=== PATIENT | male | born 1970 | race African-American/Black ===

== ENCOUNTER 2017-02-09 17:10 | Inpatient (IN) ==
[2017-02-09] MEDS ORDERED: LORazepam 2 MG/1 ML VIAL IV PRN ×2 (17:38→19:05)
[2017-02-09] MEDS ORDERED: SODIUM CHLORIDE 0.9% 1,000 ML IV SCH (18:00)
--- NOTE | 2017-02-09 18:50 | Hospitalist History & Physical ---
<Amy Olvera - Last Filed: 02/09/17 18:47> Assessment and Plan - Time spent with patient Time spent with patient: Greater than 30 minutes (1) Acute alcoholic pancreatitis Status: Acute Assessment and plan: Mr. Saucedo is a 46-year-old male transferred from [facility] with ongoing acute alcoholic pancreatitis with alcohol withdrawal. Patient has been given Ativan and Tranxene at [facility]. He is sleepy but arousable now. Patient' s lipase is still elevated but his abdomen is nontender. He will be given fluids, clear liquid diet, banana bag, and Geodon IM, Ativan, and/or Haldol for alcohol withdrawal. Patient's home medicines will be restarted. I do not see any medicines for patient's verbal history of congestive heart failure but he is on Dilantin for seizures. Dr. Meek to see and examined patient and further recommendations to follow. Current Visit: Yes (2) Alcohol withdrawal Status: Acute Current Visit: Yes (3) Congestive heart failure Status: Acute Current Visit: Yes (4) Seizures Status: Acute Current Visit: Yes History of Present Illness Chief complaint: Altered mental status History of present illness: Mr. Cortez is a 46 year old male with history of alcohol abuse, CHF and seizures transferred from [facility] with ongoing acute alcoholic pancreatitis and altered mental status. History is been taken from records from [facility] along with inconsistent history from the patient. He was initially agitated upon arrival and now is sleepy and lethargic. According to the records it looks like patient has had some nausea and vomiting and was unable to keep his seizure medicines down. He suffered a seizure and was taken to [facility] ER and given Dilantin and admitted with seizures and pancreatitis. Patient's lipase on 02/07/2017 was 7296 and today it is down to 1492. Looks like patient became combative and had altered mental status and CT done was negative. I believe patient was going through alcohol withdrawal because he normally drinks 3-4 bottles of vodka a day per records. His last known drink was on Wednesday. Upon exam patient is sleepy and lethargic but can answer some questions though some are inconsistent with his answers. His chest is clear, CV regular rate and rhythm, and abdomen is soft and nontender. He has no complaints of abdominal pain, lower extremity swelling, constipation, diarrhea, chest pain, shortness of breath, dysphagia, or headache. Labs from [place] show BMP with normal electrolytes, creatinine is 1, blood sugars 125. Patient's ALP is elevated at 132 AST elevated at 257 ALT elevated at 83 with a normal bilirubin. Patient's amylase is down to normal. CBC shows a normal white count, H&H 07/27, platelets normal. Do not see any record of abdominal ultrasound, CT scan, or lipid panel. hospital medicine has accepted patient in transfer for further evaluation and treatment. Medical,Surgical,& Family Hx - Medical History Cardio: History of: CHF Neurology: History of: Seizures - Surgical History HEENT Surgeries: Surgical HX of: Eye Surgery Orthopedic Surgeries: Surgical HX of;: Orthopedic Surgery - Family History Family History: Reports;: Family Heart Disease - Social History Smoking Status: Never smoker Frequency of Alcohol Use: Frequently Type of Drug Use: None Marital Status: Single Lives With:: Alone Functional capacity: independent ambulation Review of systems: A complete 10 system review of systems was obtained and pertinent positives and negatives per HPI Exam - Constitutional Exam: Constitutional System: No distress. No tremulousness. Head: Normocephalic, atraumatic. Multiple well-healed scars along the right eye and forehead Ears, Nose and Throat System: No evidence of Otitis or Mastoiditis. No epistaxis or discharge Eyes System: Pupils equal, round, and reactive. Extraocular muscles intact. Neck: Supple, without adenopathy, No jugular venous distention. No thyromegaly, neck mass, or prior surgery apparent. Respiratory System: Chest clear to auscultation. Cardiovascular System: Heart with regular rate and rhythm. No murmur. GI System: Abdomen soft, nontender. Normo active bowel sounds present. Musculoskeletal System: limbs with no pedal edema. Full distal pulses. Neurological System: No discernable sensory deficit. No aphasia Psychiatric System: Conversation is mildly irrational Results - Labs Labs: Labs are all pending - Impressions EKG is pending. Heart monitor showing normal sinus rhythm - Diagnostic Findings Procedure: CT: report reviewed by me (CT the head from [place] shows no acute process) <Jana Meek - Last Filed: 02/09/17 20:16> History of Present Illness History of present illness: Mr. Cortez is a 46 year old male with acute alcoholic pancreatitis. Plan NPO IVF banana bag IV ativan prn UDS CT abd/pelvis Lipids RUQ USS hepatitis panel Avoid Hepatotoxics phenytoin level ammonia level Bc, UC seizure precautions Exam - Constitutional Vitals: Period Temp Pulse Resp BP Sys/Tellez Pulse Ox Last 24 Hr 97.8 F 87-94 13-17 123-124/83-98 100-100 Results - Labs CBC & BMP: 02/09/17 19:31
[2017-02-09] MEDS ORDERED: ZIPRASIDONE 20 MG/1 ML VIAL IM PRN (19:05)
[2017-02-09] MEDS ORDERED: DOCUSATE SODIUM 100 MG CAPSULE PO PRN (19:05)
[2017-02-09] MEDS ORDERED: PROMETHAZINE 25 MG TABLET PO PRN (19:05)
[2017-02-09] MEDS ORDERED: guaiFENesin/DM ER 600-30 MG TABLET PO PRN (19:05)
[2017-02-09] MEDS ORDERED: ONDANSETRON 4 MG/2 ML VIAL IV PRN (19:05)
[2017-02-09] MEDS ORDERED: diphenhydrAMINE CAP 25 MG CAPSULE PO PRN (19:05)
[2017-02-09] MEDS ORDERED: ACETAMINOPHEN 325 MG TABLET PO PRN ×2 (19:05)
[2017-02-09] MEDS ORDERED: THIAMINE INJ 100 MG, FOLIC ACID INJ 1 MG, MULTIVITAMIN INJ 10 ML in SODIUM CHLORIDE 0.9... IV SCH ×2 (19:30→20:30)
[2017-02-09 19:48] LABS: PT Patient Result 10.9 SECS; Partial Thromboplastin Time 25.6 SECS (0-40)
[2017-02-09 20:01] LABS: Albumin 2.9 G/DL (3.4-5.0); Bilirubin,Total 0.5 MG/DL (0.2-1.0); Calcium 8.1 MG/DL (8.5-10.1); Phosphorous 1.4 MG/DL (2.5-4.9); Total Protein 5.6 G/DL (6.4-8.3)
[2017-02-09 20:02] LABS: Magnesium 1.5 MG/DL (1.8-2.4); Osmolality,Calculated 284.8 MOS/KG (273-304); Potassium 3.4 MMOL/L (3.5-5.1)
[2017-02-09 20:09] LABS: Folate > 24.0 NG/ML (5.4-24.0); Vitamin B12 1157 PG/ML (211-911)
[2017-02-09] MEDS: 1: SODIUM CHLORIDE 0.9% 1,000 ML 2: THIAMINE INJ 100 MG, FOLIC ACID INJ 1 MG, MULTIVITA IV SCH (20:36)
[2017-02-09 21:00] LABS: Barbiturates Screen,Urine Negative (Negative); Benzodiazepines Screen,Urine Positive (Negative); Cannabinoid Screen,Urine Negative (Negative); Opiate Screen,Urine Negative (Negative); Phencyclidine Screen,Urine Negative (Negative)
[2017-02-09] MEDS ORDERED: PHENYTOIN ER 100 MG CAPSULE PO SCH (21:00)
[2017-02-09] MEDS: ENOXAPARIN 40 MG/0.4 ML SYRINGE SUBCUT SCH (21:01)
[2017-02-09] MEDS ORDERED: LORazepam 2 MG/1 ML VIAL IV ONE (21:49)
[2017-02-09 21:53] LABS: Hepatitis A Ab IgM Quant < 0.02 Index; Hepatitis A Ab IgM Result Negative (Negative); Hepatitis B Core IgM Quant 0.16 Index; Hepatitis B Core IgM Result Negative (Negative); Hepatitis C Virus Ab Quant 0.12 Index; Hepatitis C Virus Ab Result Negative (Negative)
[2017-02-09] MEDS ORDERED: PHENYTOIN 100 MG/2 ML VIAL IV ONE (22:10)
[2017-02-09 22:23] LABS: Apearance,Urine CLEAR (Clear); Bilirubin,Urine Negative (Negative); Blood, Urine Small mg/dL (Negative); Glucose,Urine (UA) Negative (Negative); Hyaline Casts,Urine 1 /LPF (0-3); Ketones,Urine 5 mg/dL (Negative); Nitrite,Urine Negative (Negative); Protein,Urine Negative; RBC,Urine <1 /HPF (0-4); Squamous Epithelial Cell,Urine Occasional /HPF (0-10); Urine Color Colorless (Yellow); Urine Specific Gravity 1.002 (1.001-1.035); Urine Urobilinogen < 2.0 EU/DL (0.2-1.0); WBC,Urine <1 /HPF (0-6)
[2017-02-09] MEDS ORDERED: POTASSIUM PHOSPHATE 30 MMOL in SODIUM CHLORIDE 0.9% 250 ML IV ONE (22:28)
[2017-02-09] MEDS ORDERED: POTASSIUM CHLORIDE RIDER 10 MEQ in PREMIX 1 EACH IV PRN (22:28)
[2017-02-09] MEDS ORDERED: MAGNESIUM SULF RIDER 4 GM in PREMIX 1 EACH IV PRN (22:28)
[2017-02-09] MEDS: MORPHINE 2 MG/1 ML SYRINGE IV PRN (23:04)
[2017-02-09] MEDS: MAGNESIUM SULF RIDER 2 GM in PREMIX 1 EACH IV PRN (23:28)
[2017-02-10] MEDS: LORazepam 2 MG/1 ML VIAL IV PRN ×2 (04:21→07:37)
[2017-02-10] MEDS: MORPHINE 2 MG/1 ML SYRINGE IV PRN ×2 (04:37→09:24)
[2017-02-10 05:40] LABS: Hepatitis B Surface Ag Quant < 0.10 Index; Hepatitis B Surface Ag Result Negative (Negative)
[2017-02-10 06:04] LABS: Basophils % 0.4 % (0.0-0.8); Eosinophils # 0.1 10*3/uL (0.0-0.87); Eosinophils % 1.3 % (0.00-10.9); Hematocrit 29.2 VOL% (42.0-52.0); Hemoglobin 9.5 GM/DL (14.0-18.0); Immature Granulocytes % 0.4 %; Immature Granulocytes Absolute 0.03 #; Lymphocytes % 12.3 % (21.2-54.2); Mean Corpuscular HGB Conc 32.5 GM/DL (32-36); Mean Corpuscular Hemoglobin 33 PG (27-34); Mean Corpuscular Volume 100.7 FL (87-102); Mean Platelet Volume 10.9 FL (9.6-12.0); Monocytes # 0.9 10*3/uL (0.11-0.8); Monocytes % 11.3 % (1.7-12.7); Neutrophils # 5.9 10*3/uL (1.4-7.4); Neutrophils % 74.3 % (38.7-73.9); Platelet Count 153 T/CUMM (130-400); Red Cell Distribution Width 15.9 % (9.3-17.3); White Blood Count 7.9 T/CUMM (4-12)
--- NOTE | 2017-02-10 06:17 | CT Report ---
Exam: CT abdomen pelvis w con Date: 02/10/2017 3:00 AM Comparison: None Indication: Abdominal pain, pancreatitis alcoholic withdrawal Total DLP: 761.5 mGy*cm Technical: No oral contrast was administered. Images were obtained from the lung bases to the iliac crest continuation through the pelvis with 100 cc of Omnipaque 350 with axial sagittal coronal imaging available for review. Dose reduction was performed with decreasing kv and mA and automated exposure Findings: Lung bases: Some motion artifact is present. Dependent atelectatic change and tiny effusions present in both basis of the lungs. Liver and Spleen: Fatty infiltration is diffusely present in the liver. Gallbladder and Pancreas: Gallbladder is unremarkable. The pancreas reveals no obvious inflammation or ductal dilatation Adrenals: Unremarkable Kidneys: Tiny cyst on the left kidney is suspected as well as the right kidney these measure possibly 5 mm. Stomach: Incomplete distended with air fluid with a large hiatal hernia present. Retroperitoneum: No enlarged lymph nodes. Aorta and IVC: No obvious aneurysm aorta vessels and IVC are unremarkable. Bowel and Mesentery: Moderate fecal debris present. The appendix is unremarkable filled with air. Moderate fecal debris is present. Pelvis: Bladder: Incompletely distended with Canales catheter balloon present. Fluid: No free fluid identified. Lymph nodes: No enlarged lymph nodes. Pelvic organs: Unremarkable Osseous structures: Considerable motion artifact is present as patient moved during the exam which results in considerable motion artifact thoracolumbar junction. The bony pelvis is otherwise intact. Facet arthropathy is present. Impression: 1. Motion artifact which does limit the examination. 2. Fatty infiltration of liver 3. Large hiatal hernia 4. Nonspecific findings otherwise noted with small fat-containing periumbilical hernia present and mild stranding in the mesentery PROCEDURE INTERPRETED AT [facility] DEPARTMENT OF RADIOLOGY Final Report Signed by: Dr. Josué Ellis
--- NOTE | 2017-02-10 06:31 | XRay Report ---
Exam: XR chest 1V portable Date: 02/10/2017 4:00 AM Indication: Shortness of breath Comparison: None Findings: Previous left humeral neck pinning with screws present x4 with old degenerative changes of the right humeral head. Heart is normal in size. No obvious infiltrate or effusion in the left base. Some atelectatic change in the right infrahilar region. External cardiac leads are present. Impression: 1. Atelectatic change in the right infrahilar region 2. Postsurgical changes left humeral head with some deformity appears chronic in the right humeral head also noted PROCEDURE INTERPRETED AT [facility] DEPARTMENT OF RADIOLOGY Final Report Signed by: Dr. Josué Ellis
[2017-02-10 06:37] LABS: Albumin 2.6 G/DL (3.4-5.0); Bilirubin,Total 0.7 MG/DL (0.2-1.0); Calcium 7.8 MG/DL (8.5-10.1); Osmolality,Calculated 287.4 MOS/KG (273-304); Potassium 3.7 MMOL/L (3.5-5.1); Risk Ratio 2.03; Total Protein 5.4 G/DL (6.4-8.3); VLDL CHOLESTEROL 18.6 MG/DL
[2017-02-10] MEDS: 1: SODIUM CHLORIDE 0.9% 1,000 ML 2: THIAMINE INJ 100 MG, FOLIC ACID INJ 1 MG, MULTIVITA IV SCH ×2 (07:34→15:02)
--- NOTE | 2017-02-10 07:39 | Ultrasound Report ---
Exam: US gallbladder Date:02/10/2017 8:13 PM Indication: Abdominal pain Comparison: None Findings: Liver: Normal size shape with some fatty infiltration present without mass hepatic and portal veins are patent Gallbladder: Normal size shape and configuration without stones. CBD: 4 mm Pancreas: The head mid body unremarkable. The tail is poorly visualized. Kidneys Right kidney: 10.4 x 5 x 5 cm. No hydronephrosis perinephric fluid collections or focal mass present. Left kidney: Not evaluated Aorta IVC: No obvious aneurysm clearly demonstrated with patent IVC Spleen: Not evaluated Ascites: None Impression: 1. Fatty infiltration of liver. No other abnormalities noted. Ultrasound images were stored and captured PROCEDURE INTERPRETED AT [facility] DEPARTMENT OF RADIOLOGY Final Report Signed by: Dr. Josué Ellis
--- NOTE | 2017-02-10 08:08 | EKG Report ---
Stationary ECG Study [facility] Test Date: 02/10/2017 7:21:27 AM Pat Name: DIOGENES TEIXEIRA Department: Room: 115 Gender: M Records Management Manager: MAL : 1970 Requested by: Amy Olvera Order Number: [id number] Reading MD: HELEN ENCARNACION Intervals [place] Rate: 89 P: 60 DC: 145 QRS: 64 QRSD: 86 T: 47 QT: 400 QTc: 447 Interpretive Statements SINUS RHYTHM at 89 bpm WNL Electronically Signed On 02-10-17 08:49:26 CDT by HELEN ENCARNACION [email or web address]
--- NOTE | 2017-02-10 08:31 | Hospitalist Progress Note ---
Assessment and Plan (1) Delirium tremens Status: Acute Assessment and plan: Acute alcohol withdrawal requiring benzodiazepines and physical restraints. Continue ICU close observation with seizure precautions. Continue hydration and supplemental multivitamin thiamine and folic acid. Current Visit: Yes (2) Acute alcoholic pancreatitis Status: Acute Assessment and plan: Continue supportive care and monitor lipase. Patient currently not able to eat or tolerate oral intake. Continue IV fluids. CT scan abdomen and pelvis reviewed. Current Visit: Yes Qualifiers: Acute pancreatitis complication: no infection or necrosis Qualified Code(s) : K85.20 - Alcohol induced acute pancreatitis without necrosis or infection (3) Congestive heart failure Status: Acute Assessment and plan: This is taken from the patient's history. An echocardiogram will be ordered to evaluate his heart function. Current Visit: Yes (4) Seizures Status: Acute Assessment and plan: Patient with a known history of seizures on Dilantin. Dilantin will be switched to IV as he is not able to take oral medications at this time given his altered mental status and lack of cooperation. Current Visit: Yes Hospitalist: Subjective Interval history: Patient seen and examined. He became much more disoriented and combative overnight requiring physical restraints and Geodon as well as Ativan. He has been resting comfortably since receiving her medications. CT scan of the abdomen and pelvis performed with nonspecific findings including fatty infiltration of the liver. No evidence of pancreatic necrosis or abscess or pseudocyst formation. The case was discussed with the patient's nurse at the bedside. Exam - Constitutional Vitals: Period Temp Pulse Resp BP Sys/Tellez Pulse Ox Last 24 Hr 96.8 F-98.3 F 87-109 13-24 102-143/71-98 97-100 Exam: Constitutional System: Mild distress. No tremulousness. Restraints for safety noted. Head: Normocephalic, atraumatic. Ears, Nose and Throat System: No pain or tenderness. No epistaxis or discharge Eyes System: Pupils equal, round, and reactive. Extraocular muscles intact. Neck: Supple, without adenopathy, No jugular venous distention. No thyromegaly, neck mass, or prior surgery apparent. Respiratory System: Chest clear to auscultation. Cardiovascular System: Heart with regular rate and rhythm. No murmur. GI System: Abdomen soft, nontender. Normo active bowel sounds present. Musculoskeletal System: limbs with no pedal edema. Full distal pulses. Neurological System: Patient is sedated, confused and disoriented. Psychiatric System: Unable to assess secondary to patient's mental status. Results - Labs CBC & BMP: 02/10/17 05:26 02/10/17 05:26 Lab Results: I have reviewed the past 24 hour labs - Diagnostic Findings Procedure: Chest x-ray: report reviewed by me, CT Abdomen and Pelvis: report reviewed by me, image reviewed by me, Ultrasound: report reviewed by me
[2017-02-10] MEDS: PANTOPRAZOLE 40 MG VIAL IV SCH ×2 (08:47→21:02)
[2017-02-10] MEDS: PHENYTOIN 100 MG/2 ML VIAL IV SCH ×2 (08:52→21:02)
[2017-02-10] MEDS ORDERED: PANTOPRAZOLE 40 MG VIAL IV SCH (09:00)
[2017-02-10] MEDS ORDERED: chlordiazePOXIDE 10 MG CAPSULE PO SCH (09:00)
[2017-02-10] MEDS ORDERED: PANTOPRAZOLE 40 MG TABLET PO SCH (09:00)
[2017-02-10] MEDS ORDERED: THIAMINE 200 MG/2 ML VIAL IV SCH (09:00)
--- NOTE | 2017-02-10 17:56 | ECHO Report ---
Guicho Cortez Exam Date: 02/10/2017 09:18 Referring Physician: Technologist: Honey Medeiros Age: 46 Ht (in): 68 Wt (lb): 146 Gender: M Exam Location: [facility] Echo Indications: pancretitis, alcohol withdrawal, CHF BP: / HR: Rhythm: tachycardia Technical Quality: Fair IMPRESSIONS Normal left ventricular cavity size. Mild concentric left ventricular hypertrophy mildly decreased left ventricular systolic function, mild diffuse left ventricular hypokinesis. Left ventricular ejection fraction estimated at 40-45%. Normal right ventricular size. Normal right atrial size. Normal left atrial size. Mild mitral valve sclerosis. Mild-moderate mitral valve regurgitation. Mild aortic valve sclerosis. Morphologically normal tricuspid valve. Mild tricuspid valve regurgitation. Tricuspid regurgitation velocities suggest a PAP of 23.4 mmHg + RAP. Morphologically normal pulmonic valve. No pericardial effusion. Normal size aortic root and proximal ascending aorta. MEASUREMENTS (Male / Female) Normal Values 2D ECHO LV Diastolic Diameter PLAX 3.9 cm 4.2 - 5.9 / 3.9 - 5.3 cm LV Systolic Diameter PLAX 3.5 cm LV Fractional Shortening PLAX 12.2 % IVS Diastolic Thickness 1.1 cm 0.6 - 1.0 / 0.6 - 0.9 cm LVPW Diastolic Thickness 1.3 cm 0.6 - 1.0 / 0.6 - 0.9 cm RV Internal Dim ED PLAX 2.7 cm Aortic Root Diameter 2.6 cm LA Systolic Diameter LX 3.2 cm 3.0 - 4.0 / 2.7 - 3.8 cm DOPPLER TR Peak Velocity 242.0 cm/s TR Peak Gradient 23.4 mmHg FINDINGS Left Ventricle Normal left ventricular cavity size. Mild concentric left ventricular hypertrophy mildly decreased left ventricular systolic function, mild diffuse left ventricular hypokinesis. left ventricular ejection fraction estimated at 40-45%. . Right Ventricle Normal right ventricular size. Right Atrium Normal right atrial size. Left Atrium Normal left atrial size. Mitral Valve Mild mitral valve sclerosis. Mild-moderate mitral valve regurgitation. Aortic Valve Mild aortic valve sclerosis. Tricuspid Valve Morphologically normal tricuspid valve. Mild tricuspid valve regurgitation. Tricuspid regurgitation velocities suggest a PAP of 23.4 mmHg + RAP. Pulmonic Valve Morphologically normal pulmonic valve. Pericardium No pericardial effusion. Aorta Normal size aortic root and proximal ascending aorta. Master Carson MD (Electronically Signed) Final Date: 10 Feb 2017 17:55
[2017-02-10] MEDS: ENOXAPARIN 40 MG/0.4 ML SYRINGE SUBCUT SCH (21:01)
[2017-02-11] MEDS: 1: SODIUM CHLORIDE 0.9% 1,000 ML 2: THIAMINE INJ 100 MG, FOLIC ACID INJ 1 MG, MULTIVITA IV SCH ×3 (01:16→08:04)
[2017-02-11 05:36] LABS: Basophils % 0.4 % (0.0-0.8); Eosinophils # 0.1 10*3/uL (0.0-0.87); Eosinophils % 0.9 % (0.00-10.9); Hematocrit 26.9 VOL% (42.0-52.0); Hemoglobin 8.9 GM/DL (14.0-18.0); Immature Granulocytes % 0.7 %; Immature Granulocytes Absolute 0.06 #; Lymphocytes # 0.9 10*3/uL (1.4-4.0); Lymphocytes % 10.2 % (21.2-54.2); Mean Corpuscular HGB Conc 33.1 GM/DL (32-36); Mean Corpuscular Hemoglobin 33 PG (27-34); Mean Corpuscular Volume 98.9 FL (87-102); Mean Platelet Volume 10.5 FL (9.6-12.0); Monocytes # 1.4 10*3/uL (0.11-0.8); Monocytes % 15.2 % (1.7-12.7); Neutrophils # 6.7 10*3/uL (1.4-7.4); Neutrophils % 72.6 % (38.7-73.9); Platelet Count 184 T/CUMM (130-400); Red Blood Count 2.72 MC/CUMM (3.8-5.5); Red Cell Distribution Width 15.4 % (9.3-17.3); White Blood Count 9.2 T/CUMM (4-12)
[2017-02-11 06:07] LABS: Albumin 2.6 G/DL (3.4-5.0); Bilirubin,Total 0.9 MG/DL (0.2-1.0); Calcium 7.9 MG/DL (8.5-10.1); Total Protein 5.3 G/DL (6.4-8.3)
[2017-02-11 06:08] LABS: Potassium 3.3 MMOL/L (3.5-5.1)
[2017-02-11 06:09] LABS: Magnesium 1.7 MG/DL (1.8-2.4); Phosphorous 3.2 MG/DL (2.5-4.9)
[2017-02-11] MEDS: POTASSIUM CHLORIDE 20 MEQ TABLET PO PRN ×2 (06:19→09:13)
[2017-02-11] MEDS: MAGNESIUM SULF RIDER 2 GM in PREMIX 1 EACH IV PRN (06:20)
[2017-02-11] MEDS: PANTOPRAZOLE 40 MG VIAL IV SCH ×2 (08:55→21:11)
[2017-02-11] MEDS: PHENYTOIN 100 MG/2 ML VIAL IV SCH ×2 (08:59→21:11)
[2017-02-11] MEDS: MORPHINE 2 MG/1 ML SYRINGE IV PRN ×2 (12:42→16:52)
--- NOTE | 2017-02-11 13:13 | Hospitalist Progress Note ---
Assessment and Plan (1) Alcohol withdrawal Status: Acute Assessment and plan: Patient reports to me that his last drink was 1 week ago Getting banana bag Ativan and Geodon prn Improving Current Visit: Yes (2) Seizures Status: Acute Assessment and plan: Continue home depakote Current Visit: Yes (3) Delirium tremens Status: Acute Current Visit: Yes Hospitalist: Subjective Interval history: No acute events overnight. This morning patient much more awake and cooperative , restraints have been removed. He reports right wrist pain and hunger. Noted that his lipase is increasing. He denies abdominal pain, nausea or vomiting. Will start a clear liquid diet. Will transfer to the floor today. Exam - Constitutional Vitals: Period Temp Pulse Resp BP Sys/Tellez Pulse Ox Last 24 Hr 97.0 F-99.4 F 90-119 14-27 92-138/57-88 91-100 General appearance: normal weight - Head Head exam: Present: normocephalic, atraumatic - Eye Eye exam: Present: EOMI Pupils: Present: BERNABE - ENT ENT exam: Present: normal exam - Neck Neck exam: Present: normal inspection - Respiratory Respiratory exam: Present: clear to auscultation bilaterally. Absent: rhonchi, wheezes - Cardiovascular Cardiovascular exam: Present: regular rate and rhythm - GI/Abdominal GI/Abdominal exam: Present: normal bowel sounds, soft. Absent: tenderness, rebound - Extremities Exam Extremities exam: Present: normal inspection - Back Exam Back exam: Present: normal inspection - Neurological Exam Neurological exam: Present: alert - Psychiatric Psychiatric exam: Present: normal affect, normal mood - Skin Skin exam: Present: warm, intact Results - Labs CBC & BMP: 02/11/17 05:11 02/11/17 05:11
--- NOTE | 2017-02-11 14:03 | XRay Report ---
Exam: XR wrist 3V RT Date: 02/11/2017 1:03 PM Indication: Pain status post seizure alcohol withdrawal Comparison: None Findings:: The radius is intact. The exam reveals tiny subchondral cyst on the triquetrum. Mild degenerative changes at the first carpometacarpal junction. Metacarpals are intact. IV tubing is present. Technical AP lateral oblique image Impression: 1. Mild degenerative arthritic change without fracture dislocation. PROCEDURE INTERPRETED AT [facility] DEPARTMENT OF RADIOLOGY Final Report Signed by: Dr. Josué Ellis
[2017-02-11] MEDS: PARoxetine 10 MG TABLET PO SCH (15:54)
[2017-02-11] MEDS: SODIUM CHLORIDE 0.9% 1,000 ML IV SCH ×2 (19:34→19:35)
[2017-02-11] MEDS: ENOXAPARIN 40 MG/0.4 ML SYRINGE SUBCUT SCH (21:10)
[2017-02-11] MEDS: ACETAMINOPHEN 325 MG TABLET PO PRN (23:12)
[2017-02-12] MEDS: SODIUM CHLORIDE 0.9% 1,000 ML IV SCH ×2 (06:00→13:09)
[2017-02-12 07:37] LABS: Basophils % 0.3 % (0.0-0.8); Eosinophils % 0.3 % (0.00-10.9); Hematocrit 23.6 VOL% (42.0-52.0); Immature Granulocytes % 0.4 %; Immature Granulocytes Absolute 0.04 #; Lymphocytes # 1.2 10*3/uL (1.4-4.0); Lymphocytes % 13.4 % (21.2-54.2); Mean Corpuscular HGB Conc 33.9 GM/DL (32-36); Mean Corpuscular Hemoglobin 33 PG (27-34); Mean Corpuscular Volume 96.7 FL (87-102); Mean Platelet Volume 10.4 FL (9.6-12.0); Monocytes % 22.4 % (1.7-12.7); Neutrophils # 5.8 10*3/uL (1.4-7.4); Neutrophils % 63.2 % (38.7-73.9); Platelet Count 208 T/CUMM (130-400); Red Blood Count 2.44 MC/CUMM (3.8-5.5); White Blood Count 9.1 T/CUMM (4-12)
[2017-02-12 08:00] LABS: Calcium 7.7 MG/DL (8.5-10.1); Magnesium 1.7 MG/DL (1.8-2.4); Osmolality,Calculated 279.1 MOS/KG (273-304); Potassium 3.2 MMOL/L (3.5-5.1)
[2017-02-12 08:02] LABS: Band Neutrophils 3 % (0-10); Eosinophils 1 % (0-10); Hypochromasia 1+; Lymphocytes 13 % (20-55); Platelet Estimate Adequate; Segmented Neutrophils 72 % (50-85); Total Cells Counted 100
[2017-02-12] MEDS: THIAMINE 100 MG TABLET PO SCH (08:28)
[2017-02-12] MEDS: PARoxetine 10 MG TABLET PO SCH (08:28)
[2017-02-12] MEDS: FOLIC ACID 1 MG TABLET PO SCH (08:29)
[2017-02-12] MEDS: PHENYTOIN 100 MG/2 ML VIAL IV SCH (08:29)
[2017-02-12] MEDS: MULTIVITAMIN (CENTRUM) TABLET PO SCH (08:29)
[2017-02-12] MEDS: PANTOPRAZOLE 40 MG VIAL IV SCH ×2 (08:29→20:58)
--- NOTE | 2017-02-12 15:19 | Hospitalist Progress Note ---
Assessment and Plan (1) Phlebitis after infusion Status: Acute Assessment and plan: This is developed in the background of infusion with IV Dilantin. IV site is 0 already been removed. Concerned that there may be reactive bite as well as an infection. Because the whole forearm seems to be involved with pain swelling and redness I suspect cellulitis is what is caused this. Patient will be put on antibiotics to the body of the subjective information for this Current Visit: Yes (2) Cellulitis Status: Acute Assessment and plan: Patient will be put on vancomycin 1.25 g IV every 6 12 and Zosyn 3.375 g IV every 6 hours. 2 sets of blood cultures have been drawn stat. Keep a close eye on this patient's condition. Current Visit: Yes Qualifiers: Site of cellulitis: extremity Site of cellulitis of extremity: upper extremity Laterality: right Qualified Code(s): L03.113 - Cellulitis of right upper limb (3) Seizures Status: Acute Assessment and plan: Patient continues Dilantin. Dilantin level tomorrow Current Visit: Yes Hospitalist: Subjective Interval history: She has been seen interviewed and examined and chart has been reviewed. She is in first encounter with this patient for me been assigned to take care of him on this floor. Admitted to the hospital with pancreatitis caused by alcohol overuse. He is at risk for alcohol withdrawal. Appears that he had been on Dilantin IV for seizures IV was pulled in the. IV was removed either because it was infiltrated but patient now has a swollen and very tender with what looks like lymphangitis and phlebitis. Will do stat blood cultures and start him on antibiotics. Put him on P penicillin tazobactam 3.375 g IV every 6 hours and vancomycin 1.25 g IV every 12 hours. Give him first the vancomycin. Blood pressures are optimal. Exam - Constitutional Vitals: Period Temp Pulse Resp BP Sys/Tellez Pulse Ox Last 24 Hr 97.7 F-101.3 F 78-101 18-20 118-128/69-72 94-98 General appearance: normal weight - Head Head exam: Present: normocephalic, atraumatic - Eye Eye exam: Present: EOMI Pupils: Present: BERNABE - ENT ENT exam: Present: normal exam - Neck Neck exam: Present: normal inspection, other (No JVD no bruits midline trachea no adenopathy) - Respiratory Respiratory exam: Present: clear to auscultation bilaterally - Cardiovascular Cardiovascular exam: Present: regular rate and rhythm - GI/Abdominal GI/Abdominal exam: Present: normal bowel sounds, soft - Extremities Exam Extremities exam: Present: other (He has limitation of movement in the right upper extremity because of pain otherwise good full range of motion in all limbs. Edema noted to the right upper extremity from the dorsum of the hand and on the wrist on the volar aspect there is an area of excoriation is also phlebitic streaking that goes up on the lateral aspect of the.) - Neurological Exam Neurological exam: Present: alert, oriented X3, CN II-XII intact - Psychiatric Psychiatric exam: Present: normal affect, normal mood - Skin Skin exam: Present: dry, other (Involved right upper extremity has edema no differential warmth increase.) Results - Labs CBC & BMP: 02/12/17 07:21 02/12/17 07:21 Lab Results: I have reviewed the past 24 hour labs
[2017-02-12] MEDS: DEXTROSE 5% NACL 0.9% 1,000 ML IV SCH (16:10)
[2017-02-12] MEDS: PIPERACILLIN/TAZOBACTAM 3,375 MG in SODIUM CHLORIDE 0.9% 100 ML IV SCH (16:27)
[2017-02-12] MEDS: PHENYTOIN ER 100 MG CAPSULE PO SCH (20:59)
[2017-02-12] MEDS: POTASSIUM CHLORIDE 20 MEQ TABLET PO PRN (20:59)
[2017-02-12] MEDS: VANCOMYCIN INJ 1,000 MG in SODIUM CHLORIDE 0.9% 250 ML IV SCH (20:59)
[2017-02-12] MEDS: ENOXAPARIN 40 MG/0.4 ML SYRINGE SUBCUT SCH (21:50)
[2017-02-13] MEDS: PIPERACILLIN/TAZOBACTAM 3,375 MG in SODIUM CHLORIDE 0.9% 100 ML IV SCH ×3 (00:20→17:59)
[2017-02-13 04:56] LABS: Basophils % 0.2 % (0.0-0.8); Eosinophils % 0.3 % (0.00-10.9); Hematocrit 25.4 VOL% (42.0-52.0); Hemoglobin 8.5 GM/DL (14.0-18.0); Immature Granulocytes % 0.5 %; Immature Granulocytes Absolute 0.05 #; Lymphocytes # 1.1 10*3/uL (1.4-4.0); Lymphocytes % 11.1 % (21.2-54.2); Mean Corpuscular HGB Conc 33.5 GM/DL (32-36); Mean Corpuscular Hemoglobin 33 PG (27-34); Mean Corpuscular Volume 97.7 FL (87-102); Mean Platelet Volume 10.4 FL (9.6-12.0); Monocytes # 2.6 10*3/uL (0.11-0.8); Monocytes % 25.9 % (1.7-12.7); Neutrophils # 6.3 10*3/uL (1.4-7.4); Platelet Count 280 T/CUMM (130-400); Red Cell Distribution Width 14.6 % (9.3-17.3); White Blood Count 10.1 T/CUMM (4-12)
[2017-02-13] MEDS: DEXTROSE 5% NACL 0.9% 1,000 ML IV SCH ×3 (05:20→21:56)
[2017-02-13 05:39] LABS: Albumin 2.4 G/DL (3.4-5.0); Bilirubin,Total 0.8 MG/DL (0.2-1.0); Calcium 8.1 MG/DL (8.5-10.1); Magnesium 1.5 MG/DL (1.8-2.4); Osmolality,Calculated 278.1 MOS/KG (273-304); Potassium 3.4 MMOL/L (3.5-5.1); Total Protein 5.5 G/DL (6.4-8.3)
[2017-02-13 06:35] LABS: Eosinophils 1 % (0-10); Lymphocytes 13 % (20-55); Platelet Estimate Normal; Segmented Neutrophils 67 % (50-85); Total Cells Counted 100
[2017-02-13 06:36] LABS: Anisocytosis 1+; Hypochromasia 2+; Macrocytosis 1+; Ovalocytes 1+
[2017-02-13] MEDS: FOLIC ACID 1 MG TABLET PO SCH (08:26)
[2017-02-13] MEDS: THIAMINE 100 MG TABLET PO SCH (08:26)
[2017-02-13] MEDS: MULTIVITAMIN (CENTRUM) TABLET PO SCH (08:26)
[2017-02-13] MEDS: PHENYTOIN ER 100 MG CAPSULE PO SCH ×2 (08:26→20:31)
[2017-02-13] MEDS: POTASSIUM CHLORIDE 20 MEQ TABLET PO PRN ×3 (08:26→12:07)
[2017-02-13] MEDS: PARoxetine 10 MG TABLET PO SCH (08:26)
[2017-02-13] MEDS: ACETAMINOPHEN 325 MG TABLET PO PRN (08:27)
[2017-02-13] MEDS: PANTOPRAZOLE 40 MG VIAL IV SCH ×2 (08:27→20:32)
[2017-02-13] MEDS: VANCOMYCIN INJ 1,000 MG in SODIUM CHLORIDE 0.9% 250 ML IV SCH ×2 (08:32→21:52)
--- NOTE | 2017-02-13 08:32 | Hospitalist Progress Note ---
Assessment and Plan (1) Wrist pain, right Status: Acute Current Visit: Yes (2) Hypokalemia Status: Acute Assessment and plan: Potassium 3.4 today; will replace and recheck in AM. Current Visit: Yes (3) Acute alcoholic pancreatitis Status: Acute Assessment and plan: Lipase up at 7486.0 from 3719.0 on yesterday; will continue bowel rest and PPI' s. May have to start TPN if lipase continues to increase. Current Visit: Yes Qualifiers: Acute pancreatitis complication: no infection or necrosis Qualified Code(s) : K85.20 - Alcohol induced acute pancreatitis without necrosis or infection (4) Alcohol withdrawal Status: Acute Assessment and plan: No symptoms of withdrawal noted; will continue to monitor. Current Visit: Yes (5) Hypomagnesemia Status: Acute Assessment and plan: Magnesium at 1.5 today; will replace and recheck in AM. Current Visit: Yes Hospitalist: Subjective Interval history: Patient seen and examined. Edema noted to his right wrist; reports that it is "painful". Will check uric acid level. Lipase up at 4286.0 from 3719.0 on yesterday. Exam - Constitutional Vitals: Period Temp Pulse Resp BP Sys/Tellez Pulse Ox Last 24 Hr 99.2 F-100.6 F 93-108 16-20 118-140/70-87 94-100 General appearance: normal weight, no acute distress - Head Head exam: Present: normal inspection, normocephalic, atraumatic - Eye Eye exam: Present: EOMI, scleral icterus. Absent: conjunctival injection Pupils: Present: BERNABE, normal accommodation - ENT ENT exam: Present: normal exam, normal external ear exam, normal oropharynx - Neck Neck exam: Present: normal inspection. Absent: lymphadenopathy, meningismus, tenderness, thyromegaly - Respiratory Respiratory exam: Present: clear to auscultation bilaterally. Absent: rales, rhonchi, stridor, wheezes - Cardiovascular Cardiovascular exam: Present: regular rate and rhythm, systolic murmur. Absent : carotid bruit, diastolic murmur, gallop, rubs - GI/Abdominal GI/Abdominal exam: Present: normal bowel sounds, soft. Absent: distended, firm , mass - Extremities Exam Extremities exam: Present: edema (right wrist) - Back Exam Back exam: Present: normal inspection - Neurological Exam Neurological exam: Present: alert, altered - Psychiatric Psychiatric exam: Present: normal affect - Skin Skin exam: Present: warm, dry Results - Labs CBC & BMP: 02/13/17 04:18 02/13/17 04:18 Lab Results: I have reviewed the past 24 hour labs
[2017-02-13] MEDS: MORPHINE 2 MG/1 ML SYRINGE IV PRN ×2 (12:07→15:49)
[2017-02-13] MEDS: MAGNESIUM SULF RIDER 2 GM in PREMIX 1 EACH IV PRN ×2 (15:44→19:11)
--- NOTE | 2017-02-13 16:26 | Hospitalist Progress Note ---
Assessment and Plan (1) Phlebitis after infusion Status: Acute Assessment and plan: This is developed in the background of infusion with IV Dilantin. IV site is 0 already been removed. Concerned that there may be reactive bite as well as an infection. Because the whole forearm seems to be involved with pain swelling and redness I suspect cellulitis is what is caused this. Patient will be put on antibiotics to the body of the subjective information for this Current Visit: Yes (2) Cellulitis Status: Acute Assessment and plan: Patient will be put on vancomycin 1.25 g IV every 6 12 and Zosyn 3.375 g IV every 6 hours. 2 sets of blood cultures have been drawn stat. Keep a close eye on this patient's condition. Current Visit: Yes Qualifiers: Site of cellulitis: extremity Site of cellulitis of extremity: upper extremity Laterality: right Qualified Code(s): L03.113 - Cellulitis of right upper limb (3) Seizures Status: Acute Assessment and plan: Patient continues Dilantin. Dilantin level tomorrow Current Visit: Yes Hospitalist: Subjective Interval history: Patient is seen interviewed and examined and chart has been reviewed. Is wearing the right arm is much less now I will does notice some edema on the left with no pain. He has been noted to have fevers on old measurements since yesterday. All cultures sent are negative to date patient is on antibiotics which remains normal. Exam - Constitutional Vitals: Period Temp Pulse Resp BP Sys/Tellez Pulse Ox Last 24 Hr 99.2 F-100.6 F 93-108 16-18 123-140/72-87 96-100 General appearance: normal weight - Head Head exam: Present: normocephalic, atraumatic - Eye Eye exam: Present: EOMI Pupils: Present: BERNABE - ENT ENT exam: Present: normal exam, normal oropharynx - Neck Neck exam: Present: normal inspection - Respiratory Respiratory exam: Present: clear to auscultation bilaterally - Cardiovascular Cardiovascular exam: Present: regular rate and rhythm - GI/Abdominal GI/Abdominal exam: Present: normal bowel sounds, soft - Extremities Exam Extremities exam: Present: other (Edema of the right forearm is less now can move the forearm better but is still pain in the tendons of the hand. There is a lace phlebitis noted on. The left upper extremity is also has edema but necessarily IV there is no tenderness associated with this edema. No regional adenopathy) - Back Exam Back exam: Present: normal inspection - Neurological Exam Neurological exam: Present: alert, oriented X3, CN II-XII intact - Psychiatric Psychiatric exam: Present: normal affect, normal mood - Skin Skin exam: Present: normal color, warm, dry Results - Labs CBC & BMP: 02/13/17 04:18 02/13/17 04:18 Lab Results: I have reviewed the past 24 hour labs (All cultures negative today)
[2017-02-13] MEDS: ENOXAPARIN 40 MG/0.4 ML SYRINGE SUBCUT SCH (20:31)
[2017-02-14] MEDS: PIPERACILLIN/TAZOBACTAM 3,375 MG in SODIUM CHLORIDE 0.9% 100 ML IV SCH ×3 (00:07→19:11)
[2017-02-14] MEDS: DEXTROSE 5% NACL 0.9% 1,000 ML IV SCH ×2 (02:45→19:11)
[2017-02-14] MEDS: ACETAMINOPHEN 325 MG TABLET PO PRN ×2 (02:49→21:25)
[2017-02-14] MEDS: LORazepam 2 MG/1 ML VIAL IV PRN (02:51)
[2017-02-14 06:52] LABS: Basophils % 0.3 % (0.0-0.8); Eosinophils # 0.1 10*3/uL (0.0-0.87); Eosinophils % 0.7 % (0.00-10.9); Hematocrit 22.8 VOL% (42.0-52.0); Hemoglobin 7.6 GM/DL (14.0-18.0); Immature Granulocytes % 0.6 %; Immature Granulocytes Absolute 0.05 #; Lymphocytes # 1.1 10*3/uL (1.4-4.0); Lymphocytes % 12.6 % (21.2-54.2); Mean Corpuscular HGB Conc 33.3 GM/DL (32-36); Mean Corpuscular Hemoglobin 33 PG (27-34); Mean Corpuscular Volume 98.3 FL (87-102); Mean Platelet Volume 9.9 FL (9.6-12.0); Monocytes # 2.5 10*3/uL (0.11-0.8); Monocytes % 28.4 % (1.7-12.7); Neutrophils # 5.1 10*3/uL (1.4-7.4); Neutrophils % 57.4 % (38.7-73.9); Platelet Count 363 T/CUMM (130-400); Red Blood Count 2.32 MC/CUMM (3.8-5.5); Red Cell Distribution Width 14.6 % (9.3-17.3); White Blood Count 8.9 T/CUMM (4-12)
[2017-02-14] MEDS ORDERED: SODIUM CHLORIDE 0.9% 250 ML IV PRN (07:20)
[2017-02-14 07:22] LABS: Hypochromasia 1+; Lymphocytes 12 % (20-55); Macrocytosis 1+; Segmented Neutrophils 66 % (50-85); Total Cells Counted 100
[2017-02-14 07:29] LABS: Albumin 2.2 G/DL (3.4-5.0); Bilirubin,Total 0.5 MG/DL (0.2-1.0); Calcium 7.9 MG/DL (8.5-10.1); Magnesium 1.7 MG/DL (1.8-2.4); Osmolality,Calculated 277.4 MOS/KG (273-304); Phosphorous 2.8 MG/DL (2.5-4.9); Potassium 3.8 MMOL/L (3.5-5.1); Total Protein 5.3 G/DL (6.4-8.3)
--- NOTE | 2017-02-14 08:01 | Hospitalist Progress Note ---
Assessment and Plan (1) Wrist pain, right Status: Acute Assessment and plan: Remains edematous likely secondary to phelbitis/cellulitis; continue broad- spectrum antibiotics; start warm compress tid. Current Visit: Yes (2) Hypokalemia Status: Acute Assessment and plan: Potassium 3.4 today; will replace and recheck in AM. 02/14-Potassium improved up to 3.8 today after replacement on yesterday. Current Visit: Yes (3) Acute alcoholic pancreatitis Status: Acute Assessment and plan: Lipase up at 7486.0 from 3719.0 on yesterday; will continue bowel rest and PPI' s. May have to start TPN if lipase continues to increase. 02/14-Lipase is 3442.0 significant decrease from yesterday; will continue to monitor. Current Visit: Yes Qualifiers: Acute pancreatitis complication: no infection or necrosis Qualified Code(s) : K85.20 - Alcohol induced acute pancreatitis without necrosis or infection (4) Alcohol withdrawal Status: Acute Assessment and plan: No symptoms of withdrawal noted; will continue to monitor. Current Visit: Yes (5) Hypomagnesemia Status: Acute Assessment and plan: Magnesium at 1.5 today; will replace and recheck in AM. 12/15-Magnesium remains low at 1.7 from 1.5 on yesterday; will replace and recheck in AM. Current Visit: Yes (6) Anemia Status: Acute Assessment and plan: Noted decline in H/H noted at 7.6/22.8 today; down from 8.5/25.4; will type and screen; place one unit on hold. Will obtain CT abdomen/pelvis to assess for possible hemmorhagic pancreatitis. Current Visit: Yes Qualifiers: Anemia type: unspecified type Qualified Code(s): D64.9 - Anemia, unspecified (7) Neck pain Status: Acute Assessment and plan: Reports neck pain this morning; attributes this to lying in bed. Will consult PT to evaluate; start flexeril PRN. Current Visit: Yes Hospitalist: Subjective Interval history: Patient seen and examined; chart reviewed; no significant overnight events reported. Exam - Constitutional Vitals: Period Temp Pulse Resp BP Sys/Tellez Pulse Ox Last 24 Hr 98.6 F-100.3 F 94-107 18-20 108-134/61-78 90-100 General appearance: normal weight, no acute distress - Head Head exam: Present: normal inspection, normocephalic, atraumatic - Eye Eye exam: Present: EOMI, scleral icterus. Absent: conjunctival injection Pupils: Present: BERNABE, normal accommodation - ENT ENT exam: Present: normal exam, normal external ear exam, normal oropharynx - Neck Neck exam: Present: normal inspection. Absent: lymphadenopathy, meningismus, tenderness, thyromegaly - Respiratory Respiratory exam: Present: clear to auscultation bilaterally. Absent: rales, rhonchi, stridor, wheezes - Cardiovascular Cardiovascular exam: Present: regular rate and rhythm. Absent: carotid bruit, diastolic murmur, gallop, JVD, rubs, systolic murmur - GI/Abdominal GI/Abdominal exam: Present: normal bowel sounds, soft. Absent: firm, guarding, tenderness - Extremities Exam Extremities exam: Present: other (edema to right hand) - Back Exam Back exam: Present: normal inspection - Neurological Exam Neurological exam: Present: alert, oriented X3 - Psychiatric Psychiatric exam: Present: normal mood - Skin Skin exam: Present: warm, dry Results - Labs CBC & BMP: 02/14/17 06:36 02/14/17 06:36 Lab Results: I have reviewed the past 24 hour labs
[2017-02-14] MEDS: PANTOPRAZOLE 40 MG VIAL IV SCH ×2 (08:02→21:25)
[2017-02-14] MEDS: MULTIVITAMIN (CENTRUM) TABLET PO SCH (08:03)
[2017-02-14] MEDS: PARoxetine 10 MG TABLET PO SCH (08:03)
[2017-02-14] MEDS: FOLIC ACID 1 MG TABLET PO SCH (08:03)
[2017-02-14] MEDS: PHENYTOIN ER 100 MG CAPSULE PO SCH ×2 (08:03→21:25)
[2017-02-14] MEDS: POTASSIUM CHLORIDE 20 MEQ TABLET PO PRN ×2 (08:03→11:49)
[2017-02-14] MEDS: THIAMINE 100 MG TABLET PO SCH (08:03)
[2017-02-14] MEDS: VANCOMYCIN INJ 1,000 MG in SODIUM CHLORIDE 0.9% 250 ML IV SCH ×2 (08:03→23:39)
--- NOTE | 2017-02-14 09:47 | CT Report ---
CT abdomen pelvis wo/w con Indication: Anemia. Comparison: None. Technique: CT of the abdomen and pelvis was performed prior to and following the administration of intravenous contrast. The CT examination was performed using one or more of the following dose reduction techniques: Automatic exposure control, adjustment of the mA and kV according to patient size, or iterative reconstruction techniques. Findings: Moderately sized hiatal hernia is present. Lower chest otherwise demonstrates no acute findings. Liver: No mass lesions or acute findings are demonstrated. Gallbladder: The gallbladder demonstrates no significant abnormality. Spleen: Spleen is normal in size and appearance. Pancreas: Pancreas demonstrates no significant abnormality. Adrenal glands: The adrenal glands demonstrate no significant abnormalities. Kidneys: Subcentimeter hypodensity within the upper pole the left kidney has differential considerations including cyst as well as small angiomyolipoma. Size of this lesion precludes further evaluation. Additional cortical based hypoattenuation lateral cortex right kidney measures less than a centimeter in size with similar differential considerations. Aorta: The aorta demonstrates no significant abnormality. Inferior vena cava: The inferior vena cava demonstrates no significant abnormality. Lymph nodes: No adenopathy is noted within the abdomen or pelvis. Stomach and bowel: With the exception of the previously described hiatal hernia, the stomach is unremarkable. The duodenum, small bowel, appendix, and large bowel demonstrate no significant abnormalities. Intrapelvic contents: Demonstrate no significant abnormalities. Skeletal structures: The imaged bony structures of the lumbar spine, lower chest, pelvis, proximal femurs demonstrate no acute findings. Soft tissues and muscular structure of the body wall: Demonstrate no significant abnormalities. Impression: 1. Nonacute findings are present as detailed. No findings are present to suggest etiology of the provided symptoms. 02/14/2017 9:41 AM PROCEDURE INTERPRETED AT [facility] ([facility] DEPARTMENT OF RADIOLOGY Final Report Signed by: Dr. Mitch Francois
[2017-02-14] MEDS: MAGNESIUM SULF RIDER 2 GM in PREMIX 1 EACH IV PRN (16:53)
[2017-02-14] MEDS ORDERED: CYCLOBENZAPRINE 10 MG TABLET PO PRN (17:15)
[2017-02-14 21:20] LABS: Hematocrit 33.5 VOL% (42.0-52.0)
[2017-02-15] MEDS: PIPERACILLIN/TAZOBACTAM 3,375 MG in SODIUM CHLORIDE 0.9% 100 ML IV SCH ×3 (04:37→21:02)
[2017-02-15 06:21] LABS: Basophils % 0.3 % (0.0-0.8); Eosinophils # 0.1 10*3/uL (0.0-0.87); Eosinophils % 1.2 % (0.00-10.9); Hematocrit 28.7 VOL% (42.0-52.0); Hemoglobin 9.7 GM/DL (14.0-18.0); Immature Granulocytes % 0.4 %; Immature Granulocytes Absolute 0.04 #; Lymphocytes # 1.1 10*3/uL (1.4-4.0); Lymphocytes % 11.3 % (21.2-54.2); Mean Corpuscular HGB Conc 33.8 GM/DL (32-36); Mean Corpuscular Hemoglobin 32 PG (27-34); Mean Corpuscular Volume 94.7 FL (87-102); Mean Platelet Volume 10.4 FL (9.6-12.0); Monocytes # 2.3 10*3/uL (0.11-0.8); Monocytes % 22.9 % (1.7-12.7); Neutrophils # 6.4 10*3/uL (1.4-7.4); Neutrophils % 63.9 % (38.7-73.9); Platelet Count 421 T/CUMM (130-400); Red Blood Count 3.03 MC/CUMM (3.8-5.5); Red Cell Distribution Width 16.1 % (9.3-17.3)
[2017-02-15 06:55] LABS: Hypochromasia 1+; Lymphocytes 12 % (20-55); Platelet Estimate Adequate; Polychromasia Slight; Segmented Neutrophils 71 % (50-85); Total Cells Counted 100
[2017-02-15 06:57] LABS: Albumin 2.3 G/DL (3.4-5.0); Bilirubin,Total 0.9 MG/DL (0.2-1.0); Calcium 8.2 MG/DL (8.5-10.1); Osmolality,Calculated 273.5 MOS/KG (273-304); Phosphorous 2.5 MG/DL (2.5-4.9); Potassium 4.1 MMOL/L (3.5-5.1); Total Protein 5.6 G/DL (6.4-8.3)
[2017-02-15] MEDS: FOLIC ACID 1 MG TABLET PO SCH (09:33)
[2017-02-15] MEDS: PHENYTOIN ER 100 MG CAPSULE PO SCH ×2 (09:33→21:02)
[2017-02-15] MEDS: PARoxetine 10 MG TABLET PO SCH (09:33)
[2017-02-15] MEDS: THIAMINE 100 MG TABLET PO SCH (09:34)
[2017-02-15] MEDS: PANTOPRAZOLE 40 MG VIAL IV SCH ×2 (09:34→21:03)
[2017-02-15] MEDS: MORPHINE 2 MG/1 ML SYRINGE IV PRN (09:34)
[2017-02-15] MEDS: MULTIVITAMIN (CENTRUM) TABLET PO SCH (09:34)
[2017-02-15] MEDS: VANCOMYCIN INJ 1,000 MG in SODIUM CHLORIDE 0.9% 250 ML IV SCH (11:14)
[2017-02-15] MEDS ORDERED: methylPREDNISolone SOD SUC 125 MG/2 ML VIAL IM ONE (12:46)
--- NOTE | 2017-02-15 12:49 | Hospitalist Progress Note ---
Assessment and Plan (1) Phlebitis after infusion Status: Acute Assessment and plan: This is developed in the background of infusion with IV Dilantin. IV site is 0 already been removed. Concerned that there may be reactive bite as well as an infection. Because the whole forearm seems to be involved with pain swelling and redness I suspect cellulitis is what is caused this. Patient will be put on antibiotics to the body of the subjective information for this Also the swelling is going down now. Patient is developing pain in the multiple joints including neck right knee shoulders and to the fifth finger on the right hand. This looks like gout. Patient will be started on some anti- inflammatory treatment with Solu-Medrol 125 mg now and Medrol Dosepak. Because he came to the hospital with the bleeding consent in the bowel to avoid nonsteroidal anti-inflammatory medications. Also avoid colchicine in the face of pancreatitis. Current Visit: Yes (2) Cellulitis Status: Acute Assessment and plan: Resolving. Current Visit: Yes Qualifiers: Site of cellulitis: extremity Site of cellulitis of extremity: upper extremity Laterality: right Qualified Code(s): L03.113 - Cellulitis of right upper limb (3) Seizures Status: Acute Assessment and plan: Patient continues Dilantin. Dilantin level is therapeutic Current Visit: Yes Hospitalist: Subjective Interval history: Patient has been seen interviewed and examined chart has been reviewed. Mr. Eduardo is is still complaining of diffuse musculoskeletal pain does seem to be arthroses involving mostly tendinitis structures. There is no joint effusion. His uric acid level is not high. There is strong history of gout a toxin deformity however. No tophi are noted on him. He came to the hospital with alcohol induced pancreatitis he no longer has abdominal pain he is tolerated liquid feedings. He will be advanced on the diet. Exam - Constitutional Vitals: Period Temp Pulse Resp BP Sys/Tellez Pulse Ox Last 24 Hr 98.5 F-100.8 F 86-103 18-20 126-144/75-88 95-100 General appearance: normal weight - Head Head exam: Present: normocephalic - Eye Eye exam: Present: EOMI Pupils: Present: BERNABE, unequal (Anicteric sclera no conjunctival petechia) - ENT ENT exam: Present: normal exam - Neck Neck exam: Present: normal inspection - Respiratory Respiratory exam: Present: clear to auscultation bilaterally - Cardiovascular Cardiovascular exam: Present: regular rate and rhythm - GI/Abdominal GI/Abdominal exam: Present: normal bowel sounds, soft - Extremities Exam Extremities exam: Present: full ROM, other (Diffuse heather-joint tenderness with palpation) - Back Exam Back exam: Present: normal inspection - Neurological Exam Neurological exam: Present: alert, oriented X3, CN II-XII intact - Psychiatric Psychiatric exam: Present: normal affect, normal mood - Skin Skin exam: Present: normal color, warm, dry Results - Labs CBC & BMP: 02/15/17 05:23 02/15/17 05:23 Lab Results: I have reviewed the past 24 hour labs (All blood cultures are negative to date)
[2017-02-15] MEDS ORDERED: methylPREDNISolone 4 MG TABLET PO SCH ×2 (13:00→13:07)
[2017-02-15] MEDS: DEXTROSE 5% NACL 0.9% 1,000 ML IV SCH ×2 (15:32→15:50)
[2017-02-16] MEDS: VANCOMYCIN INJ 1,000 MG in SODIUM CHLORIDE 0.9% 250 ML IV SCH ×2 (00:59→15:24)
[2017-02-16] MEDS: PIPERACILLIN/TAZOBACTAM 3,375 MG in SODIUM CHLORIDE 0.9% 100 ML IV SCH ×2 (05:13→15:24)
[2017-02-16 06:52] LABS: Basophils % 0.3 % (0.0-0.8); Eosinophils # 0.1 10*3/uL (0.0-0.87); Eosinophils % 0.5 % (0.00-10.9); Hemoglobin 9.7 GM/DL (14.0-18.0); Immature Granulocytes % 0.4 %; Immature Granulocytes Absolute 0.05 #; Lymphocytes # 1.4 10*3/uL (1.4-4.0); Lymphocytes % 12.5 % (21.2-54.2); Mean Corpuscular HGB Conc 33.4 GM/DL (32-36); Mean Corpuscular Hemoglobin 32 PG (27-34); Mean Corpuscular Volume 95.1 FL (87-102); Mean Platelet Volume 10.2 FL (9.6-12.0); Monocytes # 1.6 10*3/uL (0.11-0.8); Monocytes % 14.1 % (1.7-12.7); Neutrophils # 8.2 10*3/uL (1.4-7.4); Neutrophils % 72.2 % (38.7-73.9); Platelet Count 505 T/CUMM (130-400); Red Blood Count 3.05 MC/CUMM (3.8-5.5); Red Cell Distribution Width 15.8 % (9.3-17.3); White Blood Count 11.3 T/CUMM (4-12)
[2017-02-16 07:23] LABS: Albumin 2.1 G/DL (3.4-5.0); Bilirubin,Total 0.4 MG/DL (0.2-1.0); Calcium 7.9 MG/DL (8.5-10.1); Osmolality,Calculated 274.5 MOS/KG (273-304); Potassium 4.1 MMOL/L (3.5-5.1); Total Protein 5.8 G/DL (6.4-8.3)
[2017-02-16] MEDS: MULTIVITAMIN (CENTRUM) TABLET PO SCH (10:23)
[2017-02-16] MEDS: PHENYTOIN ER 100 MG CAPSULE PO SCH ×2 (10:23→21:18)
[2017-02-16] MEDS: PARoxetine 10 MG TABLET PO SCH (10:23)
[2017-02-16] MEDS: THIAMINE 100 MG TABLET PO SCH (10:23)
[2017-02-16] MEDS: FOLIC ACID 1 MG TABLET PO SCH (10:23)
[2017-02-16] MEDS: MORPHINE 2 MG/1 ML SYRINGE IV PRN ×2 (10:24→21:29)
[2017-02-16] MEDS: PANTOPRAZOLE 40 MG VIAL IV SCH ×2 (10:25→21:18)
--- NOTE | 2017-02-16 12:30 | Hospitalist Progress Note ---
Assessment and Plan (1) Phlebitis after infusion Status: Acute Assessment and plan: This significantly improved now. Will de-escalate antibiotics now. Get the patient out of bed and ambulate. Repeat lipase tomorrow Current Visit: Yes (2) Cellulitis Status: Acute Assessment and plan: Resolved. Stop antibiotic. Current Visit: Yes Qualifiers: Site of cellulitis: extremity Site of cellulitis of extremity: upper extremity Laterality: right Qualified Code(s): L03.113 - Cellulitis of right upper limb (3) Seizures Status: Acute Assessment and plan: No activity. Dilantin level is therapeutic Current Visit: Yes Hospitalist: Subjective Interval history: Patient was seen interviewed and examined chart has been reviewed. Generalized musculoskeletal pains are now less whilst on steroids. He was given IV Solu- Medrol yesterday and started on Medrol Dosepak; admitted to the hospital with alcoholic pancreatitis is significant recovery in terms of symptoms. Last lipase 3703. This does not totally come down he should have a repeat CT scan to evaluate for possibility of a pseudocyst. Exam - Constitutional Vitals: Period Temp Pulse Resp BP Sys/Tellez Pulse Ox Last 24 Hr 98.8 F-100.5 F 87-90 16-20 116-152/71-84 96-100 General appearance: normal weight - Head Head exam: Present: normocephalic, atraumatic - Eye Eye exam: Present: EOMI, other (Anicteric sclera no conjunctival petechia) Pupils: Present: BERNABE - ENT ENT exam: Present: normal exam, normal oropharynx - Neck Neck exam: Present: normal inspection - Respiratory Respiratory exam: Present: clear to auscultation bilaterally - Cardiovascular Cardiovascular exam: Present: regular rate and rhythm - GI/Abdominal GI/Abdominal exam: Present: normal bowel sounds, soft, other (No guarding on palpation) - Extremities Exam Extremities exam: Present: full ROM, other (Movement improvement in movement suggesting much less pain now.) - Back Exam Back exam: Present: normal inspection - Neurological Exam Neurological exam: Present: alert, oriented X3, CN II-XII intact - Psychiatric Psychiatric exam: Present: normal affect, normal mood, depressed - Skin Skin exam: Present: normal color, warm, dry Results - Labs CBC & BMP: 02/16/17 05:31 02/16/17 05:30 Lab Results: I have reviewed the past 24 [place] ([place] [address] down from the myoglobin is able at 9.7 g percent white count is 11,300 output little suspect secondary to use of steroids)
[2017-02-16] MEDS: DEXTROSE 5% NACL 0.9% 1,000 ML IV SCH ×5 (12:40→21:20)
[2017-02-16] MEDS: methylPREDNISolone 4 MG TABLET PO SCH ×3 (13:10→21:17)
[2017-02-17 06:37] LABS: Basophils % 0.3 % (0.0-0.8); Eosinophils # 0.1 10*3/uL (0.0-0.87); Eosinophils % 0.7 % (0.00-10.9); Hematocrit 26.9 VOL% (42.0-52.0); Hemoglobin 8.8 GM/DL (14.0-18.0); Immature Granulocytes % 0.5 %; Immature Granulocytes Absolute 0.07 #; Lymphocytes # 1.1 10*3/uL (1.4-4.0); Lymphocytes % 8.4 % (21.2-54.2); Mean Corpuscular HGB Conc 32.7 GM/DL (32-36); Mean Corpuscular Hemoglobin 31 PG (27-34); Mean Corpuscular Volume 96.1 FL (87-102); Mean Platelet Volume 9.7 FL (9.6-12.0); Monocytes # 1.4 10*3/uL (0.11-0.8); Monocytes % 10.6 % (1.7-12.7); Neutrophils # 10.8 10*3/uL (1.4-7.4); Neutrophils % 79.5 % (38.7-73.9); Platelet Count 531 T/CUMM (130-400); Red Cell Distribution Width 15.9 % (9.3-17.3); White Blood Count 13.5 T/CUMM (4-12)
[2017-02-17] MEDS: DEXTROSE 5% NACL 0.9% 1,000 ML IV SCH ×2 (06:40→15:35)
[2017-02-17 07:17] LABS: Calcium 8.1 MG/DL (8.5-10.1); Magnesium 1.8 MG/DL (1.8-2.4); Osmolality,Calculated 279.3 MOS/KG (273-304); Potassium 3.8 MMOL/L (3.5-5.1)
[2017-02-17] MEDS: methylPREDNISolone 4 MG TABLET PO SCH ×2 (10:11→15:36)
[2017-02-17] MEDS: PANTOPRAZOLE 40 MG VIAL IV SCH (10:11)
[2017-02-17] MEDS: POTASSIUM CHLORIDE 20 MEQ TABLET PO PRN (10:12)
[2017-02-17] MEDS: THIAMINE 100 MG TABLET PO SCH (10:12)
[2017-02-17] MEDS: MULTIVITAMIN (CENTRUM) TABLET PO SCH (10:12)
[2017-02-17] MEDS: PARoxetine 10 MG TABLET PO SCH (10:12)
[2017-02-17] MEDS: PHENYTOIN ER 100 MG CAPSULE PO SCH (10:12)
[2017-02-17] MEDS: FOLIC ACID 1 MG TABLET PO SCH (10:12)
[2017-02-17] MEDS: MAGNESIUM SULF RIDER 2 GM in PREMIX 1 EACH IV PRN (10:13)
--- NOTE | 2017-02-17 11:28 | Discharge Summary ---
Hospital Course - Hospital Course Hospital Course: Mr. Cortez is a 46 year old male with history of alcohol abuse, CHF and seizures that transferred from [facility] on 02/09 with ongoing acute alcoholic pancreatitis and altered mental status. History was retrieved from the chart on arrival. According to the records it looks like patient has had some nausea and vomiting and was unable to keep his seizure medicines down. He suffered a seizure and was taken to [facility] and given Dilantin and admitted with seizures and pancreatitis. Patient's lipase on 02/07/2017 was 7296 and today it is down to 1492. Looks like patient became combative and had altered mental status and CT done was negative. Labs from [place] show BMP with normal electrolytes, creatinine is 1, blood sugars 125. Patient's ALP was elevated at 132 AST elevated at 257 ALT elevated at 83 with a normal bilirubin. Patient's amylase was down to normal. CBC showed a normal white count, H&H 10 /31, platelets normal. Abdominal ultrasound, CT scan, or lipid panel were not available. Hospital medicine admitted for further evaluation and treatment. The patient was started on Dilantin with the seizures. CT scan of the abdomen and pelvis were performed and had nonspecific findings including fatty infiltration of the liver. There is no indication of pancreatic necrosis or abscess or pseudocyst formation. While hospitalized the patient was treated with IV fluids. Patient began to complain of diffuse musculoskeletal pain which was evaluated. Patient also treated with IV steroids which were transitioned to oral steroids. Patient was discharged on vitamin therapy in addition to Dilantin and indomethacin. The patient is to follow-up with primary care provider as necessary. MD to follow Diagnosis - Discharge Diagnosis (1) Phlebitis after infusion Status: Acute (2) Cellulitis Status: Acute (3) Seizures Status: Acute Discharge Plan - Discharge Data Disposition: Disch To Home/Self Care Condition at Discharge: Stable Discharge Diet: heart healthy, low fat, low cholesterol Activity: resume usual activities as tolerated Weight Bearing at Discharge: weight bear as tolerated Contact your physician if you experience:: fever over 101, Nausea/Vomiting, Shortness of breath, pain uncontrolled by pain medications - Discharge Medications New Folic Acid Tab 1 mg PO DAILY #30 tablet Multivitamin (Centrum) [Centrum Tab] 1 tablet PO DAILY #30 tablet Phenytoin ER Cap [Dilantin Cap] 100 mg PO BID #60 capsule Thiamine Tab [Vitamin B1 Tab] 100 mg PO DAILY #30 tablet Indomethacin Cap [Indocin Cap] 50 mg PO TID PRN #15 capsule PRN Reason: Pain Continue Famotidine Tab [Pepcid Tab] 20 mg PO BEDTIME Divalproex Sodium [Depakote] 100 mg PO TID PARoxetine [Paxil] 10 mg PO DAILY - Follow Up or Referral - Forms/Instructions Instructions: Phenytoin (By mouth), Thiamine (Vitamin B-1) (By mouth), Folic Acid (By mouth), Multivitamins, Adult Formula (By mouth), Pancreatitis (GEN), Abuse of Alcohol (DC) Exam - Constitutional Vitals: Period Temp Pulse Resp BP Sys/Tellez Pulse Ox Last 24 Hr 98.4 F 80 16 121/75 96 General appearance: normal weight - Head Head exam: Present: normal inspection, normocephalic - Eye Eye exam: Present: EOMI Pupils: Present: BERNABE - ENT ENT exam: Present: normal exam, normal oropharynx - Neck Neck exam: Present: normal inspection - Respiratory Respiratory exam: Present: clear to auscultation bilaterally - Cardiovascular Cardiovascular exam: Present: regular rate and rhythm - GI/Abdominal GI/Abdominal exam: Present: normal bowel sounds, soft - Extremities Exam Extremities exam: Present: full ROM, other (Patient has migratory pain in the joints suggestive of gouty attack) - Neurological Exam Neurological exam: Present: alert, oriented X3, CN II-XII intact - Psychiatric Psychiatric exam: Present: normal affect, normal mood - Skin Skin exam: Present: normal color, warm, dry DS: Provider Date of admission: 02/09/17 18:37 Primary care physician: Edna Cordova MD Attending physician on admission: Edna Cordova MD Consults: 02/10/17 13:20 Consult to Dietitian [CONS] Routine Reason for Dietitian: Diet Recommendations 02/12/17 15:16 Consult to Pharmacy [CONS] Routine Reason for Pharmacy Consult: Dose/Manage Vancomycin Discharging clinician: Miquel Restrepo MD
[2017-02-17 12:09] VITALS: BP 121/75
== END 2017-02-17 15:48 | disposition home or self-care (01) | DRG 439 ==
LOC: SUATTDRO 18:37 → N.ICU 18:37 → N.5E 02-11 15:25
PROVIDERS: ADMIT Family Medicine; ATTEND Internal Medicine Infectious Disease

== ENCOUNTER 2017-04-04 10:30 | Inpatient (IN) ==
[2017-04-04] MEDS ORDERED: DOCUSATE SODIUM 100 MG CAPSULE PO PRN (11:26)
[2017-04-04] MEDS ORDERED: ACETAMINOPHEN 325 MG TABLET PO PRN (11:26)
[2017-04-04] MEDS ORDERED: LACTULOSE 20 GM/30 ML UDCUP PO PRN (11:26)
[2017-04-04] MEDS ORDERED: ONDANSETRON 4 MG/2 ML VIAL IV PRN (11:26)
[2017-04-04] MEDS ORDERED: METOCLOPRAMIDE 10 MG/2 ML VIAL IV PRN (11:58)
[2017-04-04 12:29] LABS: INR 1.1; PT Patient Result 11.4 SECS; Partial Thromboplastin Time 27.1 SECS (0-40)
[2017-04-04 12:48] LABS: Osmolality,Calculated 276.8 MOS/KG (273-304); Potassium 3.8 MMOL/L (3.5-5.1)
[2017-04-04 12:51] LABS: Albumin 2.6 G/DL (3.4-5.0); Bilirubin,Direct 0.4 MG/DL (0.0-0.20); Bilirubin,Indirect 0.3 MG/DL (0.0-1.0); Bilirubin,Total 0.7 MG/DL (0.2-1.0); Total Protein 5.8 G/DL (6.4-8.3)
[2017-04-04 13:02] LABS: Basophils % 0.1 % (0.0-0.8); Eosinophils % 0.1 % (0.00-10.9); Hemoglobin 11.2 GM/DL (14.0-18.0); Immature Granulocytes % 0.8 %; Immature Granulocytes Absolute 0.08 #; Lymphocytes # 0.4 10*3/uL (1.4-4.0); Mean Corpuscular HGB Conc 32.9 GM/DL (32-36); Mean Corpuscular Hemoglobin 33 PG (27-34); Mean Corpuscular Volume 99.7 FL (87-102); Mean Platelet Volume 10.6 FL (9.6-12.0); Monocytes % 9.8 % (1.7-12.7); Neutrophils % 85.2 % (38.7-73.9); Red Blood Count 3.41 MC/CUMM (3.8-5.5); Red Cell Distribution Width 15.1 % (9.3-17.3); White Blood Count 10.5 T/CUMM (4-12)
[2017-04-04 13:04] LABS: Apearance,Urine CLOUDY (Clear); Bilirubin,Urine Negative (Negative); Blood, Urine Negative (Negative); Glucose,Urine (UA) Negative (Negative); Ketones,Urine Negative (Negative); Mucus,Urine Occasional /LPF (Occasional); Nitrite,Urine Negative (Negative); Protein,Urine Negative; RBC,Urine 1 /HPF (0-4); Squamous Epithelial Cell,Urine Occasional /HPF (0-10); Urine Color Yellow (Yellow); Urine Specific Gravity 1.021 (1.001-1.035); Urine Urobilinogen < 2.0 EU/DL (0.2-1.0); WBC,Urine 22 /HPF (0-6)
[2017-04-04 13:04] LABS: Platelet Count 98 T/CUMM (130-400)
--- NOTE | 2017-04-04 13:09 | Hospitalist History & Physical ---
Assessment and Plan - Time spent with patient Time spent with patient: Less than 30 minutes (1) GI bleed Status: Acute Assessment and plan: External facility records report hematemesis. GI workup to include: CBC, BMP, lipase, amylase, LFT, stool. Consult GI for EGD in am. Current Visit: Yes (2) Alcohol withdrawal Status: Acute Assessment and plan: History of alcoholism. Withdrawal prophylaxis. Current Visit: No (3) Pancreatitis Status: Acute Assessment and plan: Continue to monitor lipase and amylase. NPO diet. Analgesics PRN. Patient also has hiccups. Have started Reglan to assist with this. Current Visit: Yes (4) Congestive heart failure Status: Acute Current Visit: No (5) Seizures Status: Acute Assessment and plan: Dilantin levels elevated per external facility records. Will continue to monitor. Current Visit: No History of Present Illness Chief complaint: GI bleed, pancreatitis, change in LOC History of present illness: Mr. Cortez is a 46 year old male with a past medical history significant for alcohol abuse, CHF, seizures and pancreatitis who presents via EMS as a transfer from [facility] for further evaluation of GI Bleed, pancreatitis and recent change in mental status. The patient was given Ativan en route and has a reduced level of consciousness. History is limited and taken primarily from external facility records. He was apparently admitted to the [facility] for pancreatitis on March 30 and treated there. His lipase and amylase levels have decreased significantly over the last few days; however, they are still elevated and the patient has had an apparent change in mental status not quite consistent with his treatment. The patient does awake to sternal rub and some verbal stimuli and confirms that he consumes copious amounts of alcohol and has had some nausea/vomiting recently. [facility] records show that the patient has had some coffee ground emesis, but the patient has not had an emetic episode since arriving. There is a foul odor emanating from his mouth suggestive of old blood. The patient neither confirms nor denies PERSON, chest pain , abdominal pain, BRBPR, SOB, syncope. He has been admitted to the CCU for further evaluation and treatment. We will begin with a full GIB and pancreatic workup with GI consultation for a possible EGD in the am. The patient is NPO. He is a full code. Home mediations have been reviewed and reconciled. Addendum per Dr. Morley to follow. Home Medications Medication Instructions Recorded Confirmed Type RX: Divalproex Sodium [Depakote] 100 mg PO TID 02/10/17 04/04/17 History RX: Famotidine Tab [Pepcid Tab] 20 mg PO BEDTIME 02/10/17 04/04/17 History RX: PARoxetine [Paxil] 10 mg PO DAILY 02/10/17 04/04/17 History RX: Folic Acid Tab 1 mg PO DAILY #30 tablet 02/17/17 04/04/17 Rx RX: Indomethacin Cap [Indocin Cap] 50 mg PO TID PRN #15 capsule 02/17/17 Rx RX: Multivitamin (Centrum) 1 tablet PO DAILY #30 tablet 02/17/17 04/04/17 Rx [Centrum Tab] RX: Phenytoin ER Cap [Dilantin Cap] 100 mg PO BID #60 capsule 02/17/17 04/04/17 Rx RX: Thiamine Tab [Vitamin B1 Tab] 100 mg PO DAILY #30 tablet 02/17/17 04/04/17 Rx Allergies Allergy/AdvReac Type Severity Reaction Status Date / Time No Known Allergies Allergy Verified 02/09/17 19:14 Medical,Surgical,& Family Hx - Medical History Cardio: History of: CHF Neurology: History of: Seizures - Surgical History HEENT Surgeries: Surgical HX of: Eye Surgery Orthopedic Surgeries: Surgical HX of;: Orthopedic Surgery - Family History Family History: Reports;: Family Heart Disease - Social History Smoking Status: Never smoker Frequency of Alcohol Use: Unknown Type of Drug Use: Unknown Marital Status: Single Lives With:: Alone Functional capacity: independent ambulation ROS unobtainable: due to mental status Exam - Constitutional Vitals: Period Temp Pulse Resp BP Sys/Tellez Pulse Ox Last 24 Hr 99.6 F-99.9 F 124-127 18-24 120-129/78-85 97-98 Exam: General appearance: normal weight, reduced LOC, NAD - Head Head exam: Present: normocephalic, atraumatic - Eye Eye exam: Present: EOMI. Absent: conjunctival injection, nystagmus Pupils: Present: BERNABE - ENT ENT exam: Present: normal exam, normal external ear exam - Neck Neck exam: Present: normal inspection. Absent: lymphadenopathy, tenderness, thyromegaly - Respiratory Respiratory exam: Present: clear to auscultation bilaterally. Absent: rales, rhonchi, wheezes - Cardiovascular Cardiovascular exam: Present: regular rate and rhythm. Absent: carotid bruit, gallop, rubs - GI/Abdominal GI/Abdominal exam: Present: normal bowel sounds. Absent: ascites, distended, mass - Extremities Exam Extremities exam: Present: normal inspection, normal capillary refill. Absent: edema - Back Exam Back exam: Absent: CVA tenderness (L), CVA tenderness (R) - Neurological Exam Neurological exam: Present: stuporous - Psychiatric Psychiatric exam: Present: unable to assess due to LOC - Skin Skin exam: Present: normal color, warm, dry Results - Labs CBC & BMP: 04/04/17 12:09 Lab Results: I have reviewed the past 24 hour labs
[2017-04-04] MEDS: SODIUM CHLORIDE 0.9% 1,000 ML IV SCH ×2 (14:46→22:30)
[2017-04-04] MEDS: PHENYTOIN ER 100 MG CAPSULE PO SCH ×2 (14:46→20:52)
[2017-04-04 14:59] LABS: Band Neutrophils 4 % (0-10); Hypochromasia 1+; Lymphocytes 9 % (20-55); Platelet Estimate Decreased; Segmented Neutrophils 80 % (50-85); Total Cells Counted 100
[2017-04-04] MEDS: PANTOPRAZOLE INJ 200 MG in SODIUM CHLORIDE 0.9% 250 ML IV SCH (15:29)
[2017-04-04] MEDS: VALPROIC ACID 250 MG/5 ML UDCUP PO SCH ×2 (18:40→20:52)
[2017-04-04 19:30] LABS: Hematocrit 29.3 VOL% (42.0-52.0); Hemoglobin 9.9 GM/DL (14.0-18.0)
[2017-04-04] MEDS ORDERED: MORPHINE 2 MG/1 ML SYRINGE IV PRN (22:52)
[2017-04-05] MEDS: LORazepam 2 MG/1 ML VIAL IV PRN ×2 (00:35→03:35)
[2017-04-05 05:18] LABS: Basophils % 0.3 % (0.0-0.8); Eosinophils # 0.2 10*3/uL (0.0-0.87); Eosinophils % 1.3 % (0.00-10.9); Hematocrit 29.9 VOL% (42.0-52.0); Hemoglobin 9.9 GM/DL (14.0-18.0); Immature Granulocytes % 1.6 %; Immature Granulocytes Absolute 0.18 #; Lymphocytes # 0.9 10*3/uL (1.4-4.0); Lymphocytes % 7.8 % (21.2-54.2); Mean Corpuscular HGB Conc 33.1 GM/DL (32-36); Mean Corpuscular Hemoglobin 33 PG (27-34); Mean Corpuscular Volume 98.7 FL (87-102); Mean Platelet Volume 11.2 FL (9.6-12.0); Monocytes # 1.6 10*3/uL (0.11-0.8); Monocytes % 13.4 % (1.7-12.7); Neutrophils # 8.8 10*3/uL (1.4-7.4); Neutrophils % 75.6 % (38.7-73.9); Platelet Count 107 T/CUMM (130-400); Red Blood Count 3.03 MC/CUMM (3.8-5.5); Red Cell Distribution Width 14.7 % (9.3-17.3); White Blood Count 11.6 T/CUMM (4-12)
[2017-04-05 05:42] LABS: Calcium 7.5 MG/DL (8.5-10.1); Osmolality,Calculated 281.1 MOS/KG (273-304); Potassium 3.7 MMOL/L (3.5-5.1)
[2017-04-05] MEDS: SODIUM CHLORIDE 0.9% 1,000 ML IV SCH ×3 (05:43→21:01)
[2017-04-05 06:10] LABS: Hypochromasia Slight
[2017-04-05 06:11] LABS: Macrocytosis Slight; Platelet Estimate Decreased
[2017-04-05] MEDS ORDERED: PANTOPRAZOLE 40 MG TABLET PO SCH (09:00)
[2017-04-05] MEDS: VALPROIC ACID 250 MG/5 ML UDCUP PO SCH ×3 (09:10→20:03)
[2017-04-05] MEDS: PHENYTOIN ER 100 MG CAPSULE PO SCH ×2 (09:10→20:03)
--- NOTE | 2017-04-05 09:56 | Hospitalist Progress Note ---
Assessment and Plan - Time spent with patient Time spent with patient: Greater than 30 minutes (1) Acute alcoholic pancreatitis Status: Acute Assessment and plan: Continue IV fluid hydration. Consult GI. Current Visit: No Qualifiers: Acute pancreatitis complication: no infection or necrosis Qualified Code(s) : K85.20 - Alcohol induced acute pancreatitis without necrosis or infection (2) Alcohol withdrawal Status: Acute Assessment and plan: Patient is a chronic alcoholic. Current Visit: No Qualifiers: Complication of substance-induced condition: with delirium Qualified Code(s ): F10.231 - Alcohol dependence with withdrawal delirium (3) Seizures Status: Chronic Assessment and plan: Continue phenytoin and valproic acid. Ativan as needed. Current Visit: No (4) Delirium tremens Status: Acute Current Visit: Yes (5) GI bleed Status: Acute Assessment and plan: Follow-up GI consult, continue Protonix drip Current Visit: Yes Qualifiers: GI bleed type/associated pathology: unspecified gastrointestinal hemorrhage type Qualified Code(s): K92.2 - Gastrointestinal hemorrhage, unspecified Hospitalist: Subjective Interval history: Patient seen and examined. No acute events overnight. Case discussed with nursing staff. Labs reviewed. The patient was recently hospitalized in the ICU for delirium tremens related to his chronic alcohol abuse Exam - Constitutional Vitals: Period Temp Pulse Resp BP Sys/Tellez Pulse Ox Last 24 Hr 97.3 F-99.9 F 100-130 15-28 88-129/53-85 95-100 Exam: Constitutional System: Mild distress. No tremulousness. Head: Normocephalic, atraumatic. Ears, Nose and Throat System: No pain or tenderness. No epistaxis or discharge Eyes System: Pupils equal, round, and reactive. Extraocular muscles intact. Neck: Supple, without adenopathy, No jugular venous distention. No thyromegaly, neck mass, or prior surgery apparent. Respiratory System: Chest clear to auscultation. Cardiovascular System: Heart with regular rate and rhythm. No murmur. GI System: Abdomen soft, mildly tender to palpation. Normo active bowel sounds present. Musculoskeletal System: limbs with no pedal edema. Full distal pulses. Neurological System: No discernable sensory deficit. No aphasia Psychiatric System: Conversation is rational Results - Labs CBC & BMP: 04/05/17 04:36 04/05/17 04:36 Lab Results: I have reviewed the past 24 hour labs
--- NOTE | 2017-04-05 12:18 | Gastrointestinal Consult Note ---
Assessment and Plan (1) Coffee ground emesis Status: Acute Assessment and plan: This patient has a history of recent pancreatitis with improvement down to a lipase level of ~500. Although it is fairly clear the patient has alcohol exposure which certainly might be driving this, we will also do an ultrasound to look for possible stones, versus sludge that might be complicating the picture. This will also be able to look for evidence of ascites with the patient's cirrhosis and check for liver nodules. We will perform upper endoscopy to look for the potential etiologies of the coffee-ground emesis these include: Esophagitis esophageal cancer, gastric cancer, gastritis, peptic ulcer disease, AVMs, duodenitis, and Tara-Ghosh tear. I suspect the latter. Patient is currently being covered with Protonix twice daily and this is adequate. Risk factors were explained to the patient and include but are not limited to bleeding, infection, perforation, cardiac and pulmonary compromise. Hopefully we can get in touch with the patient's family in order to obtain consent as I do not believe that he is ready to get this at this point in his current mental state. Current Visit: Yes (2) Alcoholic cirrhosis Status: Acute Assessment and plan: We need to emphasize abstinence in the future for this patient's alcoholism. Hopefully this will motivate him to discontinue this self-destructive behavior. Current Visit: Yes (3) Anemia Status: Acute Assessment and plan: The patient has anemia and some of this may be nutritional in addition to hematemesis and low-grade losses from toxic gastritis from the alcohol intake. Patient has not had a colonoscopy in the last 10 years and may require this if no bleeding source can be found. Upper endoscopy is to take place tomorrow. Current Visit: No Qualifiers: Anemia type: unspecified type Qualified Code(s): D64.9 - Anemia, unspecified (4) Pancreatitis Status: Acute Assessment and plan: Again this is likely due to alcohol intake but gallstones need to be evaluated with ultrasound. Abstinence is strongly encouraged. We will continue to watch the patient's lipase during his hospitalization. Given the amount of alcohol intake in this patient he appears to have relatively normal liver function tests --these were likely worse during the initial portion of his hospitalization at [facility] Current Visit: Yes History of Present Illness Chief complaint: Coffee-ground emesis, decreased hematocrit 29.9%, alcoholism/ pancreatitis History of present illness: Mr. Cortez is a 46 year old male whoThis patient was brought [facility] due to coffee-ground emesis but also has a history of alcohol intake of two 1/5's of whiskey per day, seizures, congestive heart failure, and low-grade pancreatitis. Unfortunately he is still quite groggy from the Ativan he received during his transfer and records were obtained mostly the external facility. He has been admitted to their institution since 03/30/17 with amylase and lipase improved considerably during the hospital stay presumably due to the copious amounts of alcohol patient is drinking on a routine basis. He does appear to have cirrhosis on the basis of his platelet count but we need to obtain his ultrasound for confirmation. Patient had coffee-ground emesis today prompting the transfer. He states that he has some pain but points to over where his bladder is possibly due to the [place] has been inserted. He does have some epigastric pain but states this is improved. He cannot tell me what he used to do for employment. has a decrease in his hematocrit to 34.0% now down to 29.9% post equilibration. Patient's platelet count is consistent with his cirrhosis at 107 with a elevated MCV at 99.7 again consistent with cirrhosis. His PT/INR are 11.4 &. 1.1 patient's electrolytes and BUN/creatinine are normal with the latter being 11 and 0.7. Despite this patient's two 1/5's of whiskey per day by history, his liver function tests show an ALT of 37 and AST of 51 with an alkaline phosphatase of 92 and a bilirubin of only 0.7. Lipase levels mildly elevated at 507 with a normal amylase of 45. Patient does have an albumin that is low at 2.6 consistent with malnutrition. He does not appear to have any diarrhea or constipation he does admit to previous colonoscopy done about 10 or 11 years ago for unknown indications. Home Medications Medication Instructions Recorded Confirmed Type Divalproex Sodium [Depakote] 100 mg PO TID 02/10/17 04/04/17 History Famotidine Tab [Pepcid Tab] 20 mg PO BEDTIME 02/10/17 04/04/17 History PARoxetine [Paxil] 10 mg PO DAILY 02/10/17 04/04/17 History Folic Acid Tab 1 mg PO DAILY #30 tablet 02/17/17 04/04/17 Rx Indomethacin Cap [Indocin Cap] 50 mg PO TID PRN #15 capsule 02/17/17 04/04/17 Rx Multivitamin (Centrum) [Centrum 1 tablet PO DAILY #30 tablet 02/17/17 04/04/17 Rx Tab] Phenytoin ER Cap [Dilantin Cap] 100 mg PO BID #60 capsule 02/17/17 04/04/17 Rx Thiamine Tab [Vitamin B1 Tab] 100 mg PO DAILY #30 tablet 02/17/17 04/04/17 Rx Allergies Allergy/AdvReac Type Severity Reaction Status Date / Time No Known Allergies Allergy Verified 02/09/17 19:14 Medical,Surgical,& Family Hx - Medical History Cardio: History of: CHF Neurology: History of: Seizures - Surgical History HEENT Surgeries: Surgical HX of: Eye Surgery Orthopedic Surgeries: Surgical HX of;: Orthopedic Surgery - Family History Family History: Reports;: Family Heart Disease - Social History Smoking Status: Never smoker Frequency of Alcohol Use: Unknown Type of Drug Use: Unknown ROS unobtainable: due to encephalopathy Exam - Constitutional Vitals: Period Temp Pulse Resp BP Sys/Tellez Pulse Ox Last 24 Hr 97.3 F-97.9 F 100-130 14-28 88-124/53-82 95-100 General appearance: no acute distress - Head Head exam: Present: normocephalic - Eye Eye exam: Present: EOMI, other (Patient has a disconjugate gaze with an exotropia noted of the left pupil) - ENT ENT exam: Present: normal exam - Respiratory Respiratory exam: Present: clear to auscultation bilaterally - Cardiovascular Cardiovascular exam: Present: regular rate and rhythm. Absent: systolic murmur - GI/Abdominal GI/Abdominal exam: Present: normal bowel sounds, distended, tenderness (This appears to be worse in the epigastric region and just over the bladder the suprapubic region), soft. Absent: guarding, rebound - Neurological Exam Neurological exam: Present: altered (Patient is extremely groggy but will wake up for repeated questioning and answer questions provided the answers are short. ) - Psychiatric Psychiatric exam: Present: normal affect, normal mood - Skin Skin exam: Present: warm Results - Labs CBC & BMP: 04/05/17 04:36 04/05/17 04:36
[2017-04-05] MEDS: PANTOPRAZOLE INJ 200 MG in SODIUM CHLORIDE 0.9% 250 ML IV SCH (13:34)
--- NOTE | 2017-04-05 15:26 | Ultrasound Report ---
Ultrasound of the abdomen. Indication: Liver disease. Abnormal liver function tests. The liver is normal in size. There is fatty infiltration of the liver. No focal liver lesions are seen. There is no intrahepatic biliary ductal dilatation. The common duct measures 4 mm. There are no gallstones. There is sludge seen within the gallbladder. There is no gallbladder wall thickening or fluid around the gallbladder. Most of the pancreas is obscured by bowel gas. Visualized portions appear normal. The spleen is normal in size. The kidneys are normal in size, location, and contour, without focal lesion or pelvocaliectasis. The abdominal aorta where visualized is of normal caliber. The IVC is patent. No ascites is seen. Impression: Fatty infiltration of the liver. The Ultrasound images were captured and stored. PROCEDURE INTERPRETED AT [facility] DEPARTMENT OF RADIOLOGY Final Report Signed by: Dr. Ashley Pink
[2017-04-06 05:38] LABS: Basophils % 0.2 % (0.0-0.8); Eosinophils # 0.2 10*3/uL (0.0-0.87); Eosinophils % 2.4 % (0.00-10.9); Hematocrit 28.5 VOL% (42.0-52.0); Hemoglobin 9.4 GM/DL (14.0-18.0); Immature Granulocytes % 0.4 %; Immature Granulocytes Absolute 0.04 #; Lymphocytes # 0.9 10*3/uL (1.4-4.0); Lymphocytes % 9.7 % (21.2-54.2); Mean Corpuscular Hemoglobin 32 PG (27-34); Mean Platelet Volume 11.3 FL (9.6-12.0); Monocytes # 1.7 10*3/uL (0.11-0.8); Monocytes % 17.7 % (1.7-12.7); Neutrophils # 6.7 10*3/uL (1.4-7.4); Neutrophils % 69.6 % (38.7-73.9); Platelet Count 159 T/CUMM (130-400); Red Blood Count 2.97 MC/CUMM (3.8-5.5); Red Cell Distribution Width 14.2 % (9.3-17.3); White Blood Count 9.6 T/CUMM (4-12)
[2017-04-06] MEDS: SODIUM CHLORIDE 0.9% 1,000 ML IV SCH ×4 (05:45→15:19)
[2017-04-06 05:59] LABS: Calcium 7.5 MG/DL (8.5-10.1); Osmolality,Calculated 277.3 MOS/KG (273-304); Potassium 3.1 MMOL/L (3.5-5.1)
[2017-04-06 07:12] LABS: Band Neutrophils 6 % (0-10); Eosinophils 1 % (0-10); Hypochromasia 2+; Lymphocytes 6 % (20-55); Microcytosis 1+; Platelet Estimate Adequate; Segmented Neutrophils 74 % (50-85); Total Cells Counted 100
--- NOTE | 2017-04-06 08:05 | Operative Note ---
Date of procedure: 04/06/17 Pre-op diagnosis: 5 out of 10 epigastric pain and hematemesis recent pancreatitis, alcoholic Post-op diagnosis: other (The hematemesis patient was experiencing was due to a 12 cm segment of LA class D erosive esophagitis, this was above a 10 cm hiatal hernia and likely the cause for the patient's blood loss/hematemesis. He will need to be on Protonix twice daily likely for the rest of his life. We did not see any varices, patient had minimal erosive gastritis but no duodenitis. Biopsies are pending for Helicobacter pylori.) Procedure: PROCEDURE: Esophagogastroduodenoscopy (EGD) with cold biopsy for pathology REFERRING PHYSICIAN: Dr. Edna Cordova MD INDICATIONS: Epigastric pain, 5 out of 10 intensity, pancreatitis, alcoholic cirrhosis in a patient who drinks a stated two 1/5 of whiskey per day the prior H&P was reviewed and interrim changes are as noted: No change from GI consultation yesterday ENDOSCOPIST: Jose Elias Grissom MD ENDOSCOPE: Olympus Video 100 System upper endoscope ASA CLASS: 4 EXAM: CV: regular rate and rhythm respiratory: Clear without wheezes abdominal: active bowel sounds MEDICATION: Per nursing anesthesia protocol, see their notes PROCEDURE: After discussion of the potential risks and benefits of upper endoscopy, the informed consent was obtained. The patient was then placed in the left lateral decubitus position where sedation was achieved as noted above. Esophageal intubation was performed without difficulty, and the endoscope was advanced through the esophagus, stomach and duodenum. A slow withdrawal was then performed with retroflexion in the stomach for careful inspection of the incisura angularis, fundus and cardia. The scope was then returned to a neutral position and withdrawn through the esophagus. The patient tolerated the procedure well and without complication. BIOPSIES: Distal esophagus, gastric antrum/body PHOTOGRAPHS: Obtained FINDINGS: Hypopharynx and Larynx: Normal Esohagoscopy Upper and middle thirds: LA class D erosive esophagitis starting at 26 cm going down to 34 cm, biopsied Lower third LA class D erosive esophagitis running between 26 and 34 cm , biopsied, deep erosions noted distally Esophogastric junctions: Located at 34 cm, no stricturing or García's or varices but the severe LA class D erosive esophagitis noted Gastroscopy: Cardia/Fundus: This patient has a 10 cm hiatal hernia noted with a fair amount of fluid and mild diffuse gastritis Body: Moderate diffuse gastritis, biopsied Antrum and pylorus moderate diffuse gastritis with a few erosions, biopsied Duodenoscopy: Bulb normal Second and third portions: Normal IMPRESSION: The hematemesis patient was experiencing was due to a 12 cm segment of LA class D erosive esophagitis, this was above a 10 cm hiatal hernia and likely the cause for the patient's blood loss/hematemesis. He will need to be on Protonix twice daily likely for the rest of his life. We did not see any varices, patient had minimal erosive gastritis but no duodenitis. Biopsies are pending for Helicobacter pylori. RECOMMENDATIONS: Follow up for biopsy results in 1-2 weeks by phone [phone] Continue anti-gastroesophageal reflux measures (avoid carbonated and acidic beverages, avoid eating within 2 hours of bedtime, avoid tight fitting clothing , and elevate the front bed posts 6 inches prior to sleeping. Biopsies were taken the distal esophagus to rule out HSV and CMV as well as fungal elements but this appeared to be a classic reflux esophagitis Protonix 40 mg twice daily as tolerated p.o. We can start the patient on a low-fat diet due to his history of pancreatitis. Jose Elias Grissom MD COPY TO: Edna Cordova MD Anesthesia: MAC Surgeon / Physician: Jose Elias Grissom Estimated blood loss: minimal Specimens: other (Distal esophagus, gastric antrum/body) Condition: stable Disposition: post procedure unit ([facility] Suite) Results - Labs CBC & BMP: 04/06/17 04:26 04/06/17 04:26 Discharge Plan - Discharge Medications No Action Famotidine Tab [Pepcid Tab] 20 mg PO BEDTIME Divalproex Sodium [Depakote] 100 mg PO TID Folic Acid Tab 1 mg PO DAILY #30 tablet Multivitamin (Centrum) [Centrum Tab] 1 tablet PO DAILY #30 tablet Phenytoin ER Cap [Dilantin Cap] 100 mg PO BID #60 capsule Thiamine Tab [Vitamin B1 Tab] 100 mg PO DAILY #30 tablet PARoxetine [Paxil] 10 mg PO DAILY Indomethacin Cap [Indocin Cap] 50 mg PO TID PRN #15 capsule PRN Reason: Pain - Follow Up or Referral - Forms/Instructions
--- NOTE | 2017-04-06 08:08 | Gastrointestinal Progress Note ---
Assessment and Plan (1) Erosive esophagitis Status: Acute Assessment and plan: This patient has an LA class D erosive esophagitis likely the source of his hematemesis and his anemia at this point. I did not see any evidence of varices despite the fact that he has alcoholic cirrhosis., Given the fact that he has this pancreatitis start him on a low fat diet and see how he does with oral intake at this point. It would not surprise me if he has a difficult time swallowing for some time now due the LA class D erosive esophagitis. Current Visit: Yes (2) Alcoholic cirrhosis Status: Acute Assessment and plan: We need to emphasize abstinence in the future for this patient's alcoholism. Hopefully this will motivate him to discontinue this self-destructive behavior. 04/06/17--No evidence of delirium tremens yet. Emphasize alcohol abstinence at this point. Current Visit: Yes (3) Erosive gastritis Status: Acute Current Visit: Yes (4) Pancreatitis Status: Acute Assessment and plan: Again this is likely due to alcohol intake but gallstones need to be evaluated with ultrasound. Abstinence is strongly encouraged. We will continue to watch the patient's lipase during his hospitalization. Given the amount of alcohol intake in this patient he appears to have relatively normal liver function tests --these were likely worse during the initial portion of his hospitalization at [facility] 04/06/17--this appears to be doing better, the pain is down to a 5 out of 10 intensity. Current Visit: Yes (5) Anemia Status: Acute Assessment and plan: The patient has anemia and some of this may be nutritional in addition to hematemesis and low-grade losses from toxic gastritis from the alcohol intake. Patient has not had a colonoscopy in the last 10 years and may require this if no bleeding source can be found. Upper endoscopy is to take place tomorrow. 04/06/17--the hematocrit is drifted down slightly, currently down to 28%. Current Visit: No Qualifiers: Anemia type: unspecified type Qualified Code(s): D64.9 - Anemia, unspecified Gastroenterology - PN: Subj Interval history: Patient is still complaining of 5 out of 10 epigastric tenderness and is not hungry. He would like something to help him sleep. No evidence of agitation as might be expected with the delirium tremens. Exam (Progress Note) - Constitutional Vitals: Period Temp Pulse Resp BP Sys/Tellez Pulse Ox Last 24 Hr 97.6 F-98.9 F 90-109 14-27 94-132/55-81 95-100 General appearance: mild distress - Head Head exam: Present: normocephalic, atraumatic - Eye Eye exam: Present: EOMI Pupils: Present: BERNABE - Respiratory Respiratory exam: Present: clear to auscultation bilaterally - Cardiovascular Cardiovascular exam: Present: regular rate and rhythm - GI/Abdominal GI/Abdominal exam: Present: distended, tenderness (Epigastric region), soft. Absent: rebound - Extremities Exam Extremities exam: Present: normal inspection - Neurological Exam Neurological exam: Present: alert, oriented X3, CN II-XII intact - Psychiatric Psychiatric exam: Present: normal affect, normal mood Results - Labs CBC & BMP: 04/06/17 04:26 04/06/17 04:26
[2017-04-06] MEDS ORDERED: ONDANSETRON 4 MG/2 ML VIAL ONE (08:16)
--- NOTE | 2017-04-06 08:35 | Anesthesia Post-Op ---
Anesthesia Post OP - Post Ansesthetic Evaluation Patient seen in post op: Yes Resp: within normal limits CV: within normal limits Mental: within normal limits Temp: within normal limits [id number]: within normal limits Nausea and Vomiting: within normal limits Pain: within normal limits
[2017-04-06] MEDS: PHENYTOIN ER 100 MG CAPSULE PO SCH ×2 (10:12→20:31)
[2017-04-06] MEDS: VALPROIC ACID 250 MG/5 ML UDCUP PO SCH ×3 (10:12→20:31)
--- NOTE | 2017-04-06 10:26 | Hospitalist Progress Note ---
Assessment and Plan (1) Acute alcoholic pancreatitis Status: Acute Assessment and plan: Continue IV fluid hydration. Lipase is normal. Pancreatitis has resolved. Current Visit: No Qualifiers: Acute pancreatitis complication: no infection or necrosis Qualified Code(s) : K85.20 - Alcohol induced acute pancreatitis without necrosis or infection (2) Alcohol withdrawal Status: Acute Assessment and plan: Patient is a chronic alcoholic. Current Visit: No Qualifiers: Complication of substance-induced condition: with delirium Qualified Code(s ): F10.231 - Alcohol dependence with withdrawal delirium (3) Seizures Status: Chronic Assessment and plan: Continue phenytoin and valproic acid. Ativan as needed. Current Visit: No (4) Delirium tremens Status: Acute Current Visit: Yes (5) GI bleed Status: Acute Assessment and plan: The hematemesis patient was experiencing was due to a 12 cm segment of LA class D erosive esophagitis, this was above a 10 cm hiatal hernia and likely the cause for the patient's blood loss/hematemesis. He will need to be on Protonix twice daily likely for the rest of his life. We did not see any varices, patient had minimal erosive gastritis but no duodenitis. Biopsies are pending for Helicobacter pylori. Current Visit: Yes Qualifiers: GI bleed type/associated pathology: unspecified gastrointestinal hemorrhage type Qualified Code(s): K92.2 - Gastrointestinal hemorrhage, unspecified Hospitalist: Subjective Interval history: Patient seen and examined. No acute events overnight. Case discussed with nursing staff. Labs reviewed. EGD report shows that the hematemesis patient was experiencing was due to a 12 cm segment of LA class D erosive esophagitis, this was above a 10 cm hiatal hernia and likely the cause for the patient's blood loss/hematemesis. He will need to be on Protonix twice daily likely for the rest of his life. We did not see any varices, patient had minimal erosive gastritis but no duodenitis. Biopsies are pending for Helicobacter pylori. Exam - Constitutional Vitals: Period Temp Pulse Resp BP Sys/Tellez Pulse Ox Last 24 Hr 97.6 F-98.9 F 90-109 15-27 90-132/55-81 95-100 Exam: Constitutional System: Mild distress. No tremulousness. Head: Normocephalic, atraumatic. Ears, Nose and Throat System: No pain or tenderness. No epistaxis or discharge Eyes System: Pupils equal, round, and reactive. Extraocular muscles intact. Neck: Supple, without adenopathy, No jugular venous distention. No thyromegaly, neck mass, or prior surgery apparent. Respiratory System: Chest clear to auscultation. Cardiovascular System: Heart with regular rate and rhythm. No murmur. GI System: Abdomen soft, nontender. Normo active bowel sounds present. Musculoskeletal System: limbs with no pedal edema. Full distal pulses. Neurological System: No discernable sensory deficit. No aphasia Psychiatric System: Conversation is rational Results - Labs CBC & BMP: 04/06/17 04:26 04/06/17 04:26 Lab Results: I have reviewed the past 24 hour labs
[2017-04-06] MEDS: PANTOPRAZOLE INJ 200 MG in SODIUM CHLORIDE 0.9% 250 ML IV SCH (15:30)
[2017-04-07 06:41] LABS: Basophils % 0.3 % (0.0-0.8); Eosinophils # 0.2 10*3/uL (0.0-0.87); Eosinophils % 2.7 % (0.00-10.9); Hematocrit 29.8 VOL% (42.0-52.0); Hemoglobin 9.4 GM/DL (14.0-18.0); Immature Granulocytes % 0.6 %; Immature Granulocytes Absolute 0.05 #; Lymphocytes # 1.1 10*3/uL (1.4-4.0); Lymphocytes % 14.1 % (21.2-54.2); Mean Corpuscular HGB Conc 31.5 GM/DL (32-36); Mean Corpuscular Hemoglobin 32 PG (27-34); Mean Corpuscular Volume 100.3 FL (87-102); Mean Platelet Volume 11.3 FL (9.6-12.0); Monocytes # 1.9 10*3/uL (0.11-0.8); Monocytes % 24.2 % (1.7-12.7); Neutrophils # 4.5 10*3/uL (1.4-7.4); Neutrophils % 58.1 % (38.7-73.9); Platelet Count 187 T/CUMM (130-400); Red Blood Count 2.97 MC/CUMM (3.8-5.5); Red Cell Distribution Width 14.5 % (9.3-17.3); White Blood Count 7.8 T/CUMM (4-12)
[2017-04-07] MEDS: SODIUM CHLORIDE 0.9% 1,000 ML IV SCH (06:41)
[2017-04-07 06:49] LABS: Calcium 7.6 MG/DL (8.5-10.1); Osmolality,Calculated 272.5 MOS/KG (273-304); Potassium 2.9 MMOL/L (3.5-5.1)
[2017-04-07] MEDS ORDERED: POTASSIUM CHLORIDE 20 MEQ TABLET PO ONE (07:32)
[2017-04-07 07:34] LABS: Band Neutrophils 1 % (0-10); Eosinophils 3 % (0-10); Lymphocytes 16 % (20-55); Segmented Neutrophils 60 % (50-85); Total Cells Counted 100
[2017-04-07 07:35] LABS: Hypochromasia 1+; Macrocytosis Slight
[2017-04-07] MEDS: PARoxetine 10 MG TABLET PO SCH (09:12)
[2017-04-07] MEDS: THIAMINE 100 MG TABLET PO SCH (09:12)
[2017-04-07] MEDS: MULTIVITAMIN (CENTRUM) TABLET PO SCH (09:12)
[2017-04-07] MEDS: FOLIC ACID 1 MG TABLET PO SCH (09:13)
[2017-04-07] MEDS: LACTULOSE 20 GM/30 ML UDCUP PO SCH ×2 (09:13→21:36)
[2017-04-07] MEDS: PHENYTOIN ER 100 MG CAPSULE PO SCH ×2 (09:13→21:37)
[2017-04-07] MEDS: POTASSIUM CHLORIDE RIDER 10 MEQ in PREMIX 1 EACH IV SCH ×4 (09:14→12:28)
[2017-04-07] MEDS: VALPROIC ACID 250 MG/5 ML UDCUP PO SCH ×3 (09:14→21:36)
[2017-04-07] MEDS ORDERED: SODIUM CHLORIDE 0.9% 1,000 ML IV SCH ×2 (11:00→11:30)
[2017-04-07] MEDS ORDERED: MAGNESIUM SULF RIDER 2 GM in PREMIX 1 EACH IV PRN (11:01)
[2017-04-07] MEDS ORDERED: MAGNESIUM SULF RIDER 4 GM in PREMIX 1 EACH IV PRN (11:01)
--- NOTE | 2017-04-07 11:03 | Hospitalist Progress Note ---
Assessment and Plan (1) Serum ammonia increased Status: Acute Assessment and plan: Ammonia level noted at 49 today from 43 on yesterday. No overt neurological deficits noted. The patient is alert and appropriate. We will continue lactulose as previously ordered. Will recheck ammonia level in a.m. Current Visit: Yes (2) Hypokalemia Status: Acute Assessment and plan: Potassium noted at 2.9. Will correct deficit and recheck labs in a.m. Current Visit: No (3) Alcohol addiction Status: Acute Assessment and plan: Alcohol withdrawal protocol is in place. No impending signs of withdrawal noted. We will monitor closely. Current Visit: Yes Hospitalist: Subjective Interval history: Patient seen and examined; chart reviewed. No significant overnight events. Ammonia remains elevated at 49 up from 43 on yesterday. No symptoms of alcohol withdrawal reported per nursing staff. Will monitor closely. Exam - Constitutional Vitals: Period Temp Pulse Resp BP Sys/Tellez Pulse Ox Last 24 Hr 97.4 F-98.9 F 88-105 14-24 109-134/68-82 95-99 General appearance: normal weight, no acute distress - Head Head exam: Present: normal inspection, normocephalic, atraumatic - Eye Eye exam: Present: EOMI. Absent: conjunctival injection Pupils: Present: BERNABE, normal accommodation - ENT ENT exam: Present: normal exam, normal external ear exam, normal oropharynx - Neck Neck exam: Present: normal inspection. Absent: lymphadenopathy, meningismus, thyromegaly - Respiratory Respiratory exam: Present: clear to auscultation bilaterally. Absent: rales, rhonchi, stridor, wheezes - Cardiovascular Cardiovascular exam: Present: regular rate and rhythm. Absent: carotid bruit, diastolic murmur, gallop, JVD, rubs, systolic murmur - GI/Abdominal GI/Abdominal exam: Present: normal bowel sounds, tenderness - Extremities Exam Extremities exam: Present: normal inspection, normal capillary refill, full ROM. Absent: edema - Back Exam Back exam: Present: normal inspection - Neurological Exam Neurological exam: Present: alert, oriented X3, CN II-XII intact - Psychiatric Psychiatric exam: Present: normal affect, normal mood - Skin Skin exam: Present: normal color, warm, dry Results - Labs CBC & BMP: 04/07/17 05:55 04/07/17 05:55 Lab Results: I have reviewed the past 24 hour labs
--- NOTE | 2017-04-07 13:26 | Pathology Report from [facility] ---
[facility] ACCESSION # : [id number] PATIENT NAME : Diogenes Teixeira ORDERING DR : Jose Elias Grissom MD CLINICAL HX: Epigastric pain; pancreatitis, alcohol cirrhosis (#1 Diffuse gastritis #2 Esophagitis) POST-OP DX: Same SPECIMEN INFO: #1 KALI #2 Distal esophagus GROSS DESCRIPTION: #1 Received in formalin labeled with the patients name DIOGENES TEIXEIRA and #1 consists of three pink-xavier mucosal tissue fragments collectively measuring 1.0 x 0.4 cm. Submitted in cassette #1.#2 Received in formalin labeled with the patients name DIOGENES TEIXEIRA and #2 consists of an aggregate of xavier mucosal tissue measuring 0.8 x 0.4 cm. Submitted in cassette # 2. DIAGNOSIS FOR DIOGENES TEIXEIRA: #1 GASTRIC BIOPSIES: Chronic superficial gastritis , active. H. pylori not seen on H&E or special stain with appropriate control.# 2 DISTAL ESOPHAGEAL BIOPSY: Esophageal ulcer. Reflux esophagitis. Special stain NEGATIVE for fungi with appropriate control. Viral type nuclear changes not seen. COLLECTED DATE: 04/06/2017 [facility] REPORT DATE: 04/07/2017 ELECTRONICALLY SIGNED BY: Bao Mendez M.D. 04/07/2017 - 11:10:28 [facility] SYSTEMChap[facility]
[2017-04-07] MEDS ORDERED: chlorproMAZINE INJ 25 MG in SODIUM CHLORIDE 0.9% 100 ML IV PRN (16:43)
--- NOTE | 2017-04-07 18:01 | Gastrointestinal Progress Note ---
Assessment and Plan (1) Erosive esophagitis Status: Acute Assessment and plan: This patient has an LA class D erosive esophagitis likely the source of his hematemesis and his anemia at this point. I did not see any evidence of varices despite the fact that he has alcoholic cirrhosis., Given the fact that he has this pancreatitis start him on a low fat diet and see how he does with oral intake at this point. It would not surprise me if he has a difficult time swallowing for some time now due the LA class D erosive esophagitis. 04/07/17--The patient is much more alert and awake today. He is doing well with his low-fat diet. He is not having any further nausea or vomiting. He is tolerating his oral Protonix well. A prescription has been left in the front of the chart for his use at home. He does not need routine follow-up with me unless he has further problems down the road, he can follow-up with his primary care provider near [facility]. He was advised to maintain his abstinence and was reminded that the alcohol is already led to early cirrhosis at this point. Current Visit: Yes (2) Alcoholic cirrhosis Status: Acute Assessment and plan: We need to emphasize abstinence in the future for this patient's alcoholism. Hopefully this will motivate him to discontinue this self-destructive behavior. 04/06/17--No evidence of delirium tremens yet. Emphasize alcohol abstinence at this point. 04/07/17--The patient still does not have any evidence of delirium tremens. He is reached maximal benefits of his hospitalization can likely be discharged tomorrow or later on tonight if desired. Complete abstinence is advocated. Current Visit: Yes (3) Erosive gastritis Status: Acute Assessment and plan: This was actually minimal finding in his upper endoscopy. Most of the bleeding appeared to be coming from his erosive esophagitis LA class D. No varices identified either. Current Visit: Yes (4) Pancreatitis Status: Acute Assessment and plan: Again this is likely due to alcohol intake but gallstones need to be evaluated with ultrasound. Abstinence is strongly encouraged. We will continue to watch the patient's lipase during his hospitalization. Given the amount of alcohol intake in this patient he appears to have relatively normal liver function tests --these were likely worse during the initial portion of his hospitalization at [facility] 04/06/17--this appears to be doing better, the pain is down to a 5 out of 10 intensity. 04/07/17--The patient's pain is down to a 3 out of 10 in intensity from my standpoint he can be discharged home on a low fat/low protein diet for the next 2 weeks. Current Visit: Yes (5) Anemia Status: Acute Assessment and plan: The patient has anemia and some of this may be nutritional in addition to hematemesis and low-grade losses from toxic gastritis from the alcohol intake. Patient has not had a colonoscopy in the last 10 years and may require this if no bleeding source can be found. Upper endoscopy is to take place tomorrow. 04/06/17--the hematocrit is drifted down slightly, currently down to 28%. 04/07/17--patient's hematocrit is improved now up to 29.8%, from a GI standpoint he can certainly be discharged at this time--I will sign off the case, see the prescription left in the front of the chart for this patient's discharge. Follow-up with me in the future as needed. Again alcohol abstinence is emphasized. Current Visit: No Qualifiers: Anemia type: unspecified type Qualified Code(s): D64.9 - Anemia, unspecified Gastroenterology - PN: Subj Interval history: Patient is able to ingest his food but it takes him longer to eat than usual. He is not having any further vomiting. He does not appear to be having any shaking or delirium tremens, surprisingly. We did discuss once again remaining totally abstinent from alcohol as he is already developed biochemical evidence of cirrhosis even though he does not have varices. We discussed the fact that he might develop some erosive dysphagia as a result of his severe erosive esophagitis. I have already written Protonix prescription which should be available for him to use upon discharge. Pathology is returned at this point and does not show any Helicobacter pylori or evidence of viral inclusions in the esophageal biopsies. This appears to be pure reflux driven esophagitis ( plus alcohol). Exam (Progress Note) - Constitutional Vitals: Period Temp Pulse Resp BP Sys/Tellez Pulse Ox Last 24 Hr 97.4 F-98.7 F 88-105 14-20 109-123/69-82 96-99 General appearance: no acute distress - Head Head exam: Present: normocephalic - Eye Eye exam: Present: EOMI Pupils: Present: BERNABE - Respiratory Respiratory exam: Present: clear to auscultation bilaterally. Absent: rhonchi, stridor, wheezes - Cardiovascular Cardiovascular exam: Present: regular rate and rhythm - GI/Abdominal GI/Abdominal exam: Present: normal bowel sounds, soft. Absent: distended, tenderness, rebound - Extremities Exam Extremities exam: Absent: edema - Neurological Exam Neurological exam: Present: alert, oriented X3. Absent: altered - Psychiatric Psychiatric exam: Present: normal affect, normal mood - Skin Skin exam: Present: warm Results - Labs CBC & BMP: 04/07/17 05:55 04/07/17 05:55
[2017-04-07] MEDS: PANTOPRAZOLE 40 MG VIAL IV SCH (21:37)
[2017-04-08 07:19] LABS: Basophils % 0.3 % (0.0-0.8); Eosinophils # 0.2 10*3/uL (0.0-0.87); Eosinophils % 2.4 % (0.00-10.9); Hematocrit 28.4 VOL% (42.0-52.0); Hemoglobin 9.5 GM/DL (14.0-18.0); Immature Granulocytes % 0.8 %; Immature Granulocytes Absolute 0.06 #; Lymphocytes # 1.2 10*3/uL (1.4-4.0); Lymphocytes % 16.5 % (21.2-54.2); Mean Corpuscular HGB Conc 33.5 GM/DL (32-36); Mean Corpuscular Hemoglobin 32 PG (27-34); Mean Corpuscular Volume 95.9 FL (87-102); Mean Platelet Volume 11.2 FL (9.6-12.0); Monocytes # 1.7 10*3/uL (0.11-0.8); Monocytes % 22.6 % (1.7-12.7); Neutrophils # 4.3 10*3/uL (1.4-7.4); Neutrophils % 57.4 % (38.7-73.9); Platelet Count 278 T/CUMM (130-400); Red Blood Count 2.96 MC/CUMM (3.8-5.5); Red Cell Distribution Width 14.4 % (9.3-17.3); White Blood Count 7.4 T/CUMM (4-12)
[2017-04-08 07:53] LABS: Band Neutrophils 1 % (0-10); Eosinophils 2 % (0-10); Hypochromasia Slight; Lymphocytes 14 % (20-55); Macrocytosis 1+; Platelet Estimate Adequate; Segmented Neutrophils 63 % (50-85); Total Cells Counted 100
[2017-04-08 07:57] LABS: Albumin 2.2 G/DL (3.4-5.0); Bilirubin,Total 0.5 MG/DL (0.2-1.0); Calcium 8.1 MG/DL (8.5-10.1); Magnesium 1.7 MG/DL (1.8-2.4); Osmolality,Calculated 276.3 MOS/KG (273-304); Phosphorous 2.4 MG/DL (2.5-4.9); Potassium 3.3 MMOL/L (3.5-5.1); Total Protein 5.7 G/DL (6.4-8.3)
[2017-04-08] MEDS: PANTOPRAZOLE 40 MG VIAL IV SCH (08:18)
[2017-04-08] MEDS: PHENYTOIN ER 100 MG CAPSULE PO SCH (08:18)
[2017-04-08] MEDS: FOLIC ACID 1 MG TABLET PO SCH (08:18)
[2017-04-08] MEDS: VALPROIC ACID 250 MG/5 ML UDCUP PO SCH (08:19)
[2017-04-08] MEDS: MULTIVITAMIN (CENTRUM) TABLET PO SCH (08:19)
[2017-04-08] MEDS: THIAMINE 100 MG TABLET PO SCH (08:19)
[2017-04-08] MEDS: PARoxetine 10 MG TABLET PO SCH (08:19)
[2017-04-08] MEDS ORDERED: POTASSIUM CHLORIDE 20 MEQ TABLET PO ONE (08:42)
[2017-04-08] MEDS ORDERED: MAGNESIUM OXIDE 400 MG TABLET PO ONE (08:42)
--- NOTE | 2017-04-08 08:45 | Discharge Summary ---
Hospital Course - Hospital Course Hospital Course: 46-year-old black male admitted to ICU at [facility] as a transfer from [facility] where he was hospitalized with abdominal pain and pancreatitis related to his chronic alcoholism. Patient was also noted to have a gastrointestinal bleeding. He was not confused and was believed to be withdrawing from alcohol. He has had similar admissions to this hospital in the past for the same. He was seen in consultation by gastroenterology and underwent an endoscopy. The endoscopy report shows The hematemesis patient was experiencing was due to a 12 cm segment of LA class D erosive esophagitis, this was above a 10 cm hiatal hernia and likely the cause for the patient's blood loss/hematemesis. He will need to be on Protonix twice daily likely for the rest of his life. We did not see any varices, patient had minimal erosive gastritis but no duodenitis. Biopsies are pending for Helicobacter pylori. RECOMMENDATIONS: Follow up for biopsy results in 1-2 weeks by phone [phone] Continue anti-gastroesophageal reflux measures (avoid carbonated and acidic beverages, avoid eating within 2 hours of bedtime, avoid tight fitting clothing , and elevate the front bed posts 6 inches prior to sleeping. Biopsies were taken the distal esophagus to rule out HSV and CMV as well as fungal elements but this appeared to be a classic reflux esophagitis Protonix 40 mg twice daily as tolerated p.o. We can start the patient on a low-fat diet due to his history of pancreatitis. The patient's symptoms have resolved. His abdominal pain has resolved. His lipase is normal. He is not having any alcohol withdrawal. He is alert awake and oriented 3 and in no acute distress. He was counseled regarding alcohol cessation. He is being discharged home with a prescription for twice daily Protonix. His other home medications were reviewed and reconciled. - Time spent with patient Time with patient DS: Greater than 30 minutes (Total discharge time for this patient, including [id number] time, clinical documentation, medication reconciliation, and discharge planning was 39 minutes.) Diagnosis - Discharge Diagnosis (1) Acute alcoholic pancreatitis Status: Resolved (2) Alcohol withdrawal Status: Resolved (3) Seizures Status: Chronic (4) Delirium tremens Status: Resolved (5) GI bleed Status: Resolved Discharge Plan - Discharge Data Disposition: Disch To Home/Self Care Condition at Discharge: Stable Discharge Diet: advance to your usual diet, other (Stop drinking alcohol) Activity: resume usual activities as tolerated Hygiene: no restrictions Weight Bearing at Discharge: full weight bearing Driving: no restrictions Contact your physician if you experience:: Nausea/Vomiting, Bleeding - Discharge Medications New Pantoprazole Tab [Protonix Tab] 40 mg PO BID #60 tablet Continue Divalproex Sodium [Depakote] 100 mg PO TID Folic Acid Tab 1 mg PO DAILY #30 tablet Multivitamin (Centrum) [Centrum Tab] 1 tablet PO DAILY #30 tablet Phenytoin ER Cap [Dilantin Cap] 100 mg PO BID #60 capsule Thiamine Tab [Vitamin B1 Tab] 100 mg PO DAILY #30 tablet PARoxetine [Paxil] 10 mg PO DAILY Discontinued Famotidine Tab [Pepcid Tab] 20 mg PO BEDTIME Indomethacin Cap [Indocin Cap] 50 mg PO TID PRN #15 capsule PRN Reason: Pain - Follow Up or Referral - Forms/Instructions Additional Discharge Instructions: Stop drinking alcohol Exam - Constitutional Vitals: Period Temp Pulse Resp BP Sys/Tellez Pulse Ox Last 24 Hr 98 F-98.2 F 91-101 20-20 111-140/67-79 96-98 Discharge Results Procedures and tests throughout hospitalization: Pending Orders 04/04/17 11:26 Occult Blood, Stool Stat 04/09/17 04:00 Ammonia IN AM CBC [Comp Blood Count Auto Diff] IN AM CMP [Comprehensive Metabolic Panel] IN AM Magnesium IN AM Phosphorous IN AM Labs on day of discharge: Labs from last 24 hours 04/08/17 04/08/17 04/07/17 04:52 04:52 11:29 WBC 7.4 RBC 2.96 L Hgb 9.5 L Hct 28.4 L MCV 95.9 MCH 32 MCHC 33.5 RDW 14.4 Plt Count 278 D MPV 11.2 Neut % (Auto) 57.4 Lymph % (Auto) 16.5 L Mclean % (Auto) 22.6 H Eos % (Auto) 2.4 Baso % (Auto) 0.3 Neut # (Auto) 4.3 Lymph # (Auto) 1.2 L Mclean # (Auto) 1.7 H Eos # (Auto) 0.2 Baso # (Auto) 0.0 Total Counted 100 Immature Gran % 0.8 Nucleated RBC % 0.0 Immature Gran # 0.06 Segmented Neutrophils 63 Band Neutrophils 1 Lymphocytes 14 L Monocytes 20 H Eosinophils 2 Nucleated RBCs # 0.00 Platelet Estimate Adequate Hypochromasia Slight Macrocytosis 1+ Sodium 141 Potassium 3.3 L Chloride 102 Carbon Dioxide 31 Anion Gap 11.3 BUN 2 L Creatinine 0.70 GFR Calculation 113 BUN/Creatinine Ratio 2.00 L Glucose 96 Calculated Osmolality 276.3 Calcium 8.1 L Phosphorus 2.4 L Magnesium 1.7 L Total Bilirubin 0.50 AST 70 H ALT 43 Alkaline Phosphatase 130 H Ammonia 57 H Total Protein 5.7 L Albumin 2.2 L Globulin 3.5 Albumin/Globulin Ratio 0.6 L 04/07/17 11:29 WBC RBC Hgb Hct MCV MCH MCHC RDW Plt Count MPV Neut % (Auto) Lymph % (Auto) Mclean % (Auto) Eos % (Auto) Baso % (Auto) Neut # (Auto) Lymph # (Auto) Mclean # (Auto) Eos # (Auto) Baso # (Auto) Total Counted Immature Gran % Nucleated RBC % Immature Gran # Segmented Neutrophils Band Neutrophils Lymphocytes Monocytes Eosinophils Nucleated RBCs # Platelet Estimate Hypochromasia Macrocytosis Sodium Potassium Chloride Carbon Dioxide Anion Gap BUN Creatinine GFR Calculation BUN/Creatinine Ratio Glucose Calculated Osmolality Calcium Phosphorus Magnesium 1.3 L Total Bilirubin AST ALT Alkaline Phosphatase Ammonia Total Protein Albumin Globulin Albumin/Globulin Ratio DS: Provider Date of admission: 04/04/17 11:26 Primary care physician: Edna Cordova MD Attending physician on admission: Subhash Longo MD Consults: 04/04/17 12:09 Consult to Dietitian [CONS] Routine Reason for Dietitian: Dietary Consult 04/05/17 12:07 Consult to Anesthesiology [CONS] Routine Consulting Provider: Reason for Anesthesiology: Pre-op Clearance Discharging clinician: Edna Cordova MD Expected date of discharge: 04/08/17
[2017-04-08 11:45] VITALS: BP 109/75
[2017-04-08] MEDS ORDERED: LACTULOSE 20 GM/30 ML UDCUP PO SCH (12:00)
== END 2017-04-08 15:08 | disposition home or self-care (01) | DRG 380 ==
LOC: N.CC 10:47 → SUATTDRO 11:26 → N.CC 11:28 → N.5E 04-06 15:13
PROVIDERS: ADMIT Internal Medicine; ATTEND Family Medicine

== ENCOUNTER 2018-06-07 17:53 | Inpatient (IN) ==
[2018-06-07] MEDS ORDERED: CLORAZEPATE 3.75 MG TABLET PO PRN (20:48)
[2018-06-07] MEDS ORDERED: ONDANSETRON 4 MG/2 ML VIAL IV PRN (20:49)
[2018-06-07] MEDS ORDERED: guaiFENesin/DM ER 600-30 MG TABLET PO PRN (20:49)
[2018-06-07] MEDS ORDERED: ACETAMINOPHEN 325 MG TABLET PO PRN (20:49)
[2018-06-07] MEDS ORDERED: DOCUSATE SODIUM 100 MG CAPSULE PO PRN (20:49)
[2018-06-07] MEDS ORDERED: MORPHINE 4 MG/1 ML VIAL IV PRN (20:49)
[2018-06-07 21:57] LABS: Basophils # 0.1 10*3/uL (0.0-0.2); Basophils % 0.3 % (0.0-0.8); Eosinophils # 0.1 10*3/uL (0.0-0.87); Eosinophils % 0.2 % (0.00-10.9); Hematocrit 29.7 VOL% (42.0-52.0); Hemoglobin 9.1 GM/DL (14.0-18.0); Immature Granulocytes % 5.6 %; Immature Granulocytes Absolute 1.53 #; Lymphocytes # 1.1 10*3/uL (1.4-4.0); Lymphocytes % 3.9 % (21.2-54.2); Mean Corpuscular HGB Conc 30.6 GM/DL (32-36); Mean Corpuscular Hemoglobin 30 PG (27-34); Mean Corpuscular Volume 96.4 FL (87-102); Mean Platelet Volume 10.8 FL (9.6-12.0); Monocytes # 2.1 10*3/uL (0.11-0.8); Monocytes % 7.7 % (1.7-12.7); NRBC # 0.02 10*3/uL; Neutrophils # 22.6 10*3/uL (1.4-7.4); Neutrophils % 82.3 % (38.7-73.9); Platelet Count 522 T/CUMM (130-400); Red Blood Count 3.08 MC/CUMM (3.8-5.5); Red Cell Distribution Width 16.2 % (9.3-17.3); White Blood Count 27.4 T/CUMM (4-12)
[2018-06-07] MEDS ORDERED: MAGNESIUM SULF RIDER 4 GM in PREMIX 1 EACH IV PRN (22:10)
[2018-06-07 22:19] LABS: Lactic Acid 4.8 MMOL/L (0.4-2.0)
[2018-06-07 22:20] LABS: Alanine Aminotransferase 17 U/L (16-61); Albumin 1.9 G/DL (3.4-5.0); Alkaline Phosphatase 135 U/L (45-117); Aspartate Amino Transferase 32 U/L (0-37); Blood Urea Nitrogen 12 MG/DL (7-18); Calcium 7.8 MG/DL (8.5-10.1); Glucose 134 MG/DL (74-106); Osmolality,Calculated 271.1 MOS/KG (273-304); Potassium 2.8 MMOL/L (3.5-5.1); Sodium 135 MMOL/L (136-145); Total Protein 7.8 G/DL (6.4-8.3)
[2018-06-07] MEDS: levETIRAcetam 500 MG TABLET PO SCH (22:25)
[2018-06-07] MEDS: DILTIAZEM CD 180 MG CAPSULE PO SCH (22:26)
[2018-06-07] MEDS: MELATONIN 3 MG TABLET PO PRN (22:27)
[2018-06-07] MEDS: DEXTROSE 5% NACL 0.45% 1,000 ML IV SCH (22:27)
[2018-06-07 22:29] LABS: Band Neutrophils 7 % (0-10); Lymphocytes 8 % (20-55); Segmented Neutrophils 82 % (50-85); Total Cells Counted 100
[2018-06-07 22:30] LABS: Hypochromasia Slight; Platelet Estimate Increased
[2018-06-07 22:31] LABS: Giant Platelets Few
[2018-06-07] MEDS: POTASSIUM CHLORIDE 20 MEQ TABLET PO PRN (22:44)
[2018-06-07] MEDS: VANCOMYCIN INJ 1,000 MG in SODIUM CHLORIDE 0.9% 250 ML IV SCH (22:44)
[2018-06-07] MEDS: MAGNESIUM SULF RIDER 2 GM in PREMIX 1 EACH IV PRN (22:45)
[2018-06-07 22:46] LABS: Folate 5.6 NG/ML (5.4-24.0); Vitamin B12 293 PG/ML (211-911)
[2018-06-07 23:03] LABS: Sedimentation Rate-Westergren 101 MM/HR (0-15)
[2018-06-08] MEDS: POTASSIUM CHLORIDE 20 MEQ TABLET PO PRN ×2 (00:36→02:50)
[2018-06-08] MEDS ORDERED: SODIUM CHLORIDE 0.9% 1,000 ML IV ONE (01:36)
[2018-06-08] MEDS ORDERED: SODIUM CHLORIDE 0.9% 500 ML IV ONE (01:36)
[2018-06-08] MEDS ORDERED: POTASSIUM CHLORIDE 20 MEQ TABLET PO ONE (02:00)
[2018-06-08] MEDS: PIPERACILLIN/TAZOBACTAM 3,375 MG in SODIUM CHLORIDE 0.9% 100 ML IV SCH ×4 (02:50→23:34)
[2018-06-08 06:47] LABS: Basophils # 0.1 10*3/uL (0.0-0.2); Basophils % 0.3 % (0.0-0.8); Eosinophils # 0.1 10*3/uL (0.0-0.87); Eosinophils % 0.3 % (0.00-10.9); Hematocrit 26.7 VOL% (42.0-52.0); Hemoglobin 8.7 GM/DL (14.0-18.0); Immature Granulocytes % 2.5 %; Immature Granulocytes Absolute 0.59 #; Lymphocytes # 0.9 10*3/uL (1.4-4.0); Lymphocytes % 3.8 % (21.2-54.2); Mean Corpuscular HGB Conc 32.6 GM/DL (32-36); Mean Corpuscular Hemoglobin 29 PG (27-34); Mean Corpuscular Volume 90.2 FL (87-102); Mean Platelet Volume 10.9 FL (9.6-12.0); Monocytes # 1.8 10*3/uL (0.11-0.8); Monocytes % 7.6 % (1.7-12.7); Neutrophils # 20.3 10*3/uL (1.4-7.4); Neutrophils % 85.5 % (38.7-73.9); Platelet Count 540 T/CUMM (130-400); Red Blood Count 2.96 MC/CUMM (3.8-5.5); Red Cell Distribution Width 16.2 % (9.3-17.3); White Blood Count 23.7 T/CUMM (4-12)
[2018-06-08 07:12] LABS: Band Neutrophils 5 % (0-10); Hypochromasia 1+; Lymphocytes 6 % (20-55); Platelet Estimate Increased; Segmented Neutrophils 84 % (50-85); Total Cells Counted 100
[2018-06-08 07:28] LABS: Albumin 1.7 G/DL (3.4-5.0); Bilirubin,Total 0.8 MG/DL (0.2-1.0); Calcium 7.5 MG/DL (8.5-10.1); Potassium 3.8 MMOL/L (3.5-5.1)
[2018-06-08] MEDS: levETIRAcetam 500 MG TABLET PO SCH ×2 (09:58→20:30)
[2018-06-08] MEDS: MULTIVITAMIN (CENTRUM) TABLET PO SCH (10:00)
[2018-06-08] MEDS: DILTIAZEM CD 180 MG CAPSULE PO SCH ×2 (10:00→20:29)
[2018-06-08] MEDS: THIAMINE 100 MG TABLET PO SCH (10:05)
[2018-06-08] MEDS: FOLIC ACID 1 MG TABLET PO SCH (10:05)
[2018-06-08 10:31] LABS: Hemoglobin A1 (Alkaline) 97.9 % (96.5-98.5); Hemoglobin A2 (Alkaline) 2.1 % (1.5-3.5)
[2018-06-08] MEDS: PANTOPRAZOLE 40 MG TABLET PO SCH (14:20)
[2018-06-08] MEDS ORDERED: LORazepam 2 MG/1 ML VIAL IV PRN (14:39)
[2018-06-08] MEDS: VANCOMYCIN INJ 1,000 MG in SODIUM CHLORIDE 0.9% 250 ML IV SCH (14:51)
[2018-06-08 15:16] LABS: Apearance,Urine CLEAR (Clear); Bilirubin,Urine Small mg/dL (Negative); Blood, Urine Negative (Negative); Glucose,Urine (UA) Negative (Negative); Hyaline Casts,Urine 1 /LPF (0-3); Ketones,Urine Negative (Negative); Mucus,Urine Occasional /LPF (Occasional); Nitrite,Urine Negative (Negative); Protein,Urine 30 MG/DL; RBC,Urine 2 /HPF (0-4); Squamous Epithelial Cell,Urine Occasional /HPF (0-10); Urine Color Dark Yellow (Yellow); Urine Specific Gravity 1.042 (1.001-1.035); WBC,Urine 9 /HPF (0-6)
[2018-06-08] MEDS: CLINDAMYCIN INJ 900 MG in PREMIX 1 EACH IV SCH ×2 (16:32→23:34)
[2018-06-08] MEDS ORDERED: SODIUM CHLORIDE 0.9% 1,000 ML IV PRN (16:49)
[2018-06-08 18:36] LABS: INR 1.1; PT Patient Result 11.4 SECS
[2018-06-09] MEDS ORDERED: BUPIVACAINE LIPOSOMAL 20 ML/266 MG VIAL INFILTRAT ONE (00:01)
[2018-06-09] MEDS: VANCOMYCIN INJ 1,000 MG in SODIUM CHLORIDE 0.9% 250 ML IV SCH ×2 (03:47→17:08)
[2018-06-09] MEDS: DEXTROSE 5% NACL 0.45% 1,000 ML IV SCH (03:48)
[2018-06-09 04:18] LABS: Basophils # 0.1 10*3/uL (0.0-0.2); Basophils % 0.3 % (0.0-0.8); Eosinophils # 0.1 10*3/uL (0.0-0.87); Eosinophils % 0.6 % (0.00-10.9); Hematocrit 25.8 VOL% (42.0-52.0); Hemoglobin 8.3 GM/DL (14.0-18.0); Immature Granulocytes % 1.8 %; Immature Granulocytes Absolute 0.39 #; Lymphocytes # 1.1 10*3/uL (1.4-4.0); Lymphocytes % 5.2 % (21.2-54.2); Mean Corpuscular HGB Conc 32.2 GM/DL (32-36); Mean Corpuscular Hemoglobin 30 PG (27-34); Mean Corpuscular Volume 92.8 FL (87-102); Mean Platelet Volume 10.9 FL (9.6-12.0); Monocytes # 1.8 10*3/uL (0.11-0.8); Monocytes % 8.2 % (1.7-12.7); NRBC # 0.02 10*3/uL; Neutrophils # 18.2 10*3/uL (1.4-7.4); Neutrophils % 83.9 % (38.7-73.9); Platelet Count 579 T/CUMM (130-400); Red Blood Count 2.78 MC/CUMM (3.8-5.5); Red Cell Distribution Width 16.2 % (9.3-17.3); White Blood Count 21.7 T/CUMM (4-12)
[2018-06-09 04:40] LABS: Calcium 7.4 MG/DL (8.5-10.1)
[2018-06-09 04:59] LABS: % Iron Saturation 5.3 % (18-50); Ferritin 402.8 ng/ml (26-388)
[2018-06-09] MEDS: MAGNESIUM SULF RIDER 2 GM in PREMIX 1 EACH IV PRN (05:00)
[2018-06-09 05:17] LABS: Band Neutrophils 2 % (0-10); Eosinophils 2 % (0-10); Hypochromasia 1+; Lymphocytes 5 % (20-55); Ovalocytes Slight; Platelet Estimate Increased; Segmented Neutrophils 81 % (50-85); Total Cells Counted 100
[2018-06-09] MEDS: POTASSIUM CHLORIDE 20 MEQ TABLET PO PRN (07:55)
[2018-06-09] MEDS ORDERED: POTASSIUM CHLORIDE RIDER 10 MEQ in PREMIX 1 EACH IV PRN (08:17)
[2018-06-09] MEDS: DILTIAZEM CD 180 MG CAPSULE PO SCH ×2 (08:19→21:47)
[2018-06-09] MEDS: CLINDAMYCIN INJ 900 MG in PREMIX 1 EACH IV SCH ×2 (08:19→17:17)
[2018-06-09] MEDS: levETIRAcetam 500 MG TABLET PO SCH ×2 (08:20→21:46)
[2018-06-09] MEDS: PANTOPRAZOLE 40 MG TABLET PO SCH (08:20)
[2018-06-09] MEDS: PIPERACILLIN/TAZOBACTAM 3,375 MG in SODIUM CHLORIDE 0.9% 100 ML IV SCH ×3 (08:25→23:34)
[2018-06-09] MEDS ORDERED: TISSUE ADHESIVE 1 EACH APPLICATOR TOP ONE (10:19)
[2018-06-09] MEDS ORDERED: BUPIVACAINE LIPOSOMAL 20 ML/266 MG VIAL ONE (10:35)
[2018-06-09] MEDS: MULTIVITAMIN (CENTRUM) TABLET PO SCH (10:49)
[2018-06-09] MEDS: THIAMINE 100 MG TABLET PO SCH (10:51)
[2018-06-09] MEDS: FOLIC ACID 1 MG TABLET PO SCH (10:51)
[2018-06-09] MEDS ORDERED: NOREPINEPHRINE 4 MG/4 ML VIAL IV ONE (13:27)
[2018-06-09 13:32] LABS: ABG Base Excess 0.5 MMOL/L (-2.5-2.5); ABG HCO3 24.5 MMOL/L (20-26); ABG Oxygen Saturation 85.8 % (95-100); ABG PCO2 36.3 MM HG (35-48); ABG PH 7.447 (7.35-7.45); ABG PO2 59.2 MM HG (80-95); ABG TCO2 25.6 MMOL/L (23-27); Glucose Heart Surgery 183 MG/DL (74-106); Hemoglobin Heart Surgery 7.7 G/DL (14.0-18.0); Ionized Calcium Arterial 0.99 MMOL/L (1.21-1.46); PCO2 Patient Temp Arterial 36.3 MMHG; PH Patient Temp Arterial 7.447; PO2 Patient Temp Arterial 59.2 MM HG; Patient Temperature 37 CELCIUS; Potassium Heart/CVR 3.3 MMOL/L (3.5-5.1); Sodium Heart/CVR 131 MMOL/L (135-145)
[2018-06-09] MEDS ORDERED: PROPOFOL 1,000 MG/100 ML BOTTLE IV ONE (13:36)
[2018-06-09] MEDS ORDERED: PHENYLEPHRINE DRIP 40 MG/250 ML PREMIX IV PRN (14:53)
[2018-06-09] MEDS ORDERED: PROPOFOL 1,000 MG/100 ML BOTTLE IV SCH (15:00)
[2018-06-09] MEDS ORDERED: ONDANSETRON 4 MG/2 ML VIAL IV PRN (15:02)
[2018-06-09] MEDS ORDERED: MIDAZOLAM 2 MG/2 ML VIAL ONE (15:05)
[2018-06-09] MEDS ORDERED: PROPOFOL 200 MG/20 ML VIAL IV ONE (15:06)
[2018-06-09] MEDS ORDERED: ROCURONIUM 100 MG/10 ML VIAL IV ONE (15:07)
[2018-06-09] MEDS ORDERED: PHENYLEPHRINE 10 MG/1 ML VIAL IV ONE ×2 (15:07)
[2018-06-09 15:29] LABS: ABG Base Excess -2.5 MMOL/L (-2.5-2.5); ABG HCO3 22.3 MMOL/L (20-26); ABG Oxygen Saturation 99.7 % (95-100); ABG PCO2 35.3 MM HG (35-48); ABG PH 7.398 (7.35-7.45)
[2018-06-09 15:46] LABS: Basophils # 0.1 10*3/uL (0.0-0.2); Basophils % 0.4 % (0.0-0.8); Eosinophils # 0.1 10*3/uL (0.0-0.87); Eosinophils % 0.2 % (0.00-10.9); Hematocrit 27.9 VOL% (42.0-52.0); Hemoglobin 9.3 GM/DL (14.0-18.0); Immature Granulocytes % 2.5 %; Immature Granulocytes Absolute 0.65 #; Lymphocytes # 1.1 10*3/uL (1.4-4.0); Lymphocytes % 4.3 % (21.2-54.2); Mean Corpuscular HGB Conc 33.3 GM/DL (32-36); Mean Corpuscular Hemoglobin 30 PG (27-34); Mean Corpuscular Volume 90.9 FL (87-102); Mean Platelet Volume 10.5 FL (9.6-12.0); Monocytes # 1.2 10*3/uL (0.11-0.8); Monocytes % 4.8 % (1.7-12.7); NRBC # 0.04 10*3/uL; Neutrophils # 22.7 10*3/uL (1.4-7.4); Neutrophils % 87.8 % (38.7-73.9); Platelet Count 445 T/CUMM (130-400); Red Blood Count 3.07 MC/CUMM (3.8-5.5); Red Cell Distribution Width 15.6 % (9.3-17.3); White Blood Count 25.8 T/CUMM (4-12)
[2018-06-09] MEDS: NOREPINEPHRINE 8 MG in SODIUM CHLORIDE 0.9% 242 ML IV PRN (16:00)
[2018-06-09 16:17] LABS: Calcium 6.8 MG/DL (8.5-10.1); Osmolality,Calculated 277.7 MOS/KG (273-304); Potassium 3.5 MMOL/L (3.5-5.1)
[2018-06-09] MEDS: POTASSIUM CHLORIDE INJ 10 MEQ in SODIUM CHLORIDE 0.45% 1,000 ML IV SCH (17:17)
[2018-06-09] MEDS: KETOROLAC 15 MG/1 ML VIAL IV SCH ×2 (17:28→21:19)
[2018-06-09 18:01] LABS: Lymphocytes 7 % (20-55); Platelet Estimate Increased; Segmented Neutrophils 89 % (50-85); Total Cells Counted 100
[2018-06-09] MEDS: ACETAMINOPHEN INJ 1,000 MG in PREMIX 1 EACH IV SCH (21:19)
[2018-06-09] MEDS: GABAPENTIN 100 MG CAPSULE PO SCH (21:47)
[2018-06-10] MEDS: NOREPINEPHRINE 8 MG in SODIUM CHLORIDE 0.9% 242 ML IV PRN ×3 (01:20→16:34)
[2018-06-10] MEDS: POTASSIUM CHLORIDE INJ 10 MEQ in SODIUM CHLORIDE 0.45% 1,000 ML IV SCH ×4 (01:36→20:19)
[2018-06-10] MEDS: ACETAMINOPHEN INJ 1,000 MG in PREMIX 1 EACH IV SCH (03:40)
[2018-06-10] MEDS: VANCOMYCIN INJ 1,000 MG in SODIUM CHLORIDE 0.9% 250 ML IV SCH (03:44)
[2018-06-10] MEDS: KETOROLAC 15 MG/1 ML VIAL IV SCH ×4 (03:44→20:37)
[2018-06-10 04:25] LABS: ABG Base Excess -2.5 MMOL/L (-2.5-2.5); ABG HCO3 22.4 MMOL/L (20-26); ABG Oxygen Saturation 99.4 % (95-100); ABG PCO2 29.7 MM HG (35-48); ABG PH 7.453 (7.35-7.45); ABG TCO2 19.3 MMOL/L (23-27)
[2018-06-10 04:45] LABS: Basophils # 0.1 10*3/uL (0.0-0.2); Basophils % 0.3 % (0.0-0.8); Eosinophils # 0.2 10*3/uL (0.0-0.87); Eosinophils % 0.5 % (0.00-10.9); Hematocrit 21.8 VOL% (42.0-52.0); Hemoglobin 7.6 GM/DL (14.0-18.0); Immature Granulocytes % 3.2 %; Immature Granulocytes Absolute 1.09 #; Lymphocytes # 1.6 10*3/uL (1.4-4.0); Lymphocytes % 4.7 % (21.2-54.2); Mean Corpuscular HGB Conc 34.9 GM/DL (32-36); Mean Corpuscular Hemoglobin 30 PG (27-34); Mean Corpuscular Volume 85.5 FL (87-102); Mean Platelet Volume 10.8 FL (9.6-12.0); Monocytes # 1.8 10*3/uL (0.11-0.8); Monocytes % 5.2 % (1.7-12.7); NRBC # 0.04 10*3/uL; Neutrophils # 29.5 10*3/uL (1.4-7.4); Neutrophils % 86.1 % (38.7-73.9); Platelet Count 492 T/CUMM (130-400); Red Blood Count 2.55 MC/CUMM (3.8-5.5); Red Cell Distribution Width 16.8 % (9.3-17.3); White Blood Count 34.3 T/CUMM (4-12)
[2018-06-10 04:55] LABS: Albumin 0.9 G/DL (3.4-5.0); Bilirubin,Total 0.9 MG/DL (0.2-1.0); Calcium 6.5 MG/DL (8.5-10.1); Potassium 3.8 MMOL/L (3.5-5.1); Total Protein 4.6 G/DL (6.4-8.3)
[2018-06-10 05:09] LABS: Band Neutrophils 6 % (0-10); Eosinophils 3 % (0-10); Lymphocytes 5 % (20-55); Platelet Estimate Adequate; Segmented Neutrophils 83 % (50-85); Total Cells Counted 100
[2018-06-10 05:10] LABS: Hypochromasia 1+
[2018-06-10] MEDS: CLINDAMYCIN INJ 900 MG in PREMIX 1 EACH IV SCH ×4 (08:26→23:36)
[2018-06-10] MEDS: PIPERACILLIN/TAZOBACTAM 3,375 MG in SODIUM CHLORIDE 0.9% 100 ML IV SCH (08:26)
[2018-06-10] MEDS: DILTIAZEM CD 180 MG CAPSULE PO SCH ×2 (08:31→20:17)
[2018-06-10] MEDS: MULTIVITAMIN (CENTRUM) TABLET PO SCH (08:32)
[2018-06-10] MEDS: ACETAMINOPHEN 500 MG TABLET PO SCH ×3 (08:32→20:17)
[2018-06-10] MEDS: FOLIC ACID 1 MG TABLET PO SCH (08:32)
[2018-06-10] MEDS: PANTOPRAZOLE 40 MG TABLET PO SCH (08:32)
[2018-06-10] MEDS: THIAMINE 100 MG TABLET PO SCH (08:32)
[2018-06-10] MEDS: GABAPENTIN 100 MG CAPSULE PO SCH ×3 (08:32→20:18)
[2018-06-10] MEDS: CELECOXIB 200 MG CAPSULE PO SCH ×2 (08:32→20:18)
[2018-06-10] MEDS: ENOXAPARIN 40 MG/0.4 ML SYRINGE SUBCUT SCH (08:33)
[2018-06-10] MEDS ORDERED: PANTOPRAZOLE 40 MG VIAL IV SCH (09:00)
[2018-06-10] MEDS: levETIRAcetam 500 MG TABLET PO SCH ×2 (10:28→20:16)
[2018-06-10 10:32] LABS: ABG Base Excess -4.8 MMOL/L (-2.5-2.5); ABG HCO3 20.4 MMOL/L (20-26); ABG Oxygen Saturation 98.6 % (95-100); ABG PCO2 33.1 MM HG (35-48); ABG TCO2 17.7 MMOL/L (23-27)
[2018-06-10] MEDS ORDERED: DEXTROSE 50% 25 GM/50 ML VIAL IV PRN (10:46)
[2018-06-10] MEDS ORDERED: GLUCAGON 1 MG VIAL IM PRN (10:46)
[2018-06-10] MEDS: DEXTROSE 5% NACL 0.45% 1,000 ML IV SCH (12:35)
[2018-06-10] MEDS ORDERED: traMADol 50 MG TABLET PO PRN (15:02)
[2018-06-10] MEDS: LEVOFLOXACIN INJ 750 MG in PREMIX 1 EACH IV SCH (16:14)
[2018-06-10] MEDS: AMPICILLIN INJ 2,000 MG in SODIUM CHLORIDE 0.9% 100 ML IV SCH ×2 (16:41→21:12)
[2018-06-10] MEDS: MELATONIN 3 MG TABLET PO PRN (20:18)
[2018-06-11] MEDS: ACETAMINOPHEN 500 MG TABLET PO SCH ×4 (03:51→21:09)
[2018-06-11] MEDS: AMPICILLIN INJ 2,000 MG in SODIUM CHLORIDE 0.9% 100 ML IV SCH ×4 (03:52→21:09)
[2018-06-11] MEDS: KETOROLAC 15 MG/1 ML VIAL IV SCH ×2 (03:52→08:52)
[2018-06-11 04:24] LABS: Basophils # 0.1 10*3/uL (0.0-0.2); Basophils % 0.3 % (0.0-0.8); Eosinophils # 0.4 10*3/uL (0.0-0.87); Hemoglobin 9.2 GM/DL (14.0-18.0); Immature Granulocytes Absolute 1.45 #; Lymphocytes # 1.1 10*3/uL (1.4-4.0); Lymphocytes % 3.1 % (21.2-54.2); Mean Corpuscular HGB Conc 34.1 GM/DL (32-36); Mean Corpuscular Hemoglobin 30 PG (27-34); Mean Corpuscular Volume 87.7 FL (87-102); Mean Platelet Volume 10.9 FL (9.6-12.0); Monocytes # 1.2 10*3/uL (0.11-0.8); Monocytes % 3.3 % (1.7-12.7); Neutrophils # 31.6 10*3/uL (1.4-7.4); Neutrophils % 88.3 % (38.7-73.9); Platelet Count 348 T/CUMM (130-400); Red Blood Count 3.08 MC/CUMM (3.8-5.5); Red Cell Distribution Width 16.3 % (9.3-17.3); White Blood Count 35.8 T/CUMM (4-12)
[2018-06-11 04:25] LABS: ABG Base Excess -2.4 MMOL/L (-2.5-2.5); ABG HCO3 22.3 MMOL/L (20-26); ABG Oxygen Saturation 89.6 % (95-100); ABG PCO2 37.6 MM HG (35-48); ABG PH 7.381 (7.35-7.45); ABG PO2 61.5 MM HG (80-95); ABG TCO2 20.5 MMOL/L (23-27); Allen Test Positive
[2018-06-11] MEDS: POTASSIUM CHLORIDE INJ 10 MEQ in SODIUM CHLORIDE 0.45% 1,000 ML IV SCH ×4 (04:38→12:24)
[2018-06-11 04:44] LABS: Band Neutrophils 3 % (0-10); Eosinophils 1 % (0-10); Lymphocytes 4 % (20-55); Platelet Estimate Normal; Segmented Neutrophils 89 % (50-85); Total Cells Counted 100
[2018-06-11 04:47] LABS: Calcium 6.4 MG/DL (8.5-10.1); Osmolality,Calculated 277.5 MOS/KG (273-304); Potassium 3.9 MMOL/L (3.5-5.1)
[2018-06-11] MEDS: POTASSIUM CHLORIDE 20 MEQ TABLET PO PRN (04:56)
[2018-06-11 05:10] LABS: Prealbumin < 3.0 MG/DL (20-40)
[2018-06-11 05:39] LABS: HIV Antigen/Antibody Result Nonreactive (Nonreactive)
[2018-06-11] MEDS: MAGNESIUM SULF RIDER 2 GM in PREMIX 1 EACH IV PRN (06:06)
[2018-06-11] MEDS: CLINDAMYCIN INJ 900 MG in PREMIX 1 EACH IV SCH ×2 (08:46→15:53)
[2018-06-11] MEDS: MULTIVITAMIN (CENTRUM) TABLET PO SCH (08:51)
[2018-06-11] MEDS: CELECOXIB 200 MG CAPSULE PO SCH ×2 (08:51→21:08)
[2018-06-11] MEDS: PANTOPRAZOLE 40 MG TABLET PO SCH (08:51)
[2018-06-11] MEDS: levETIRAcetam 500 MG TABLET PO SCH ×2 (08:52→21:08)
[2018-06-11] MEDS: THIAMINE 100 MG TABLET PO SCH (08:52)
[2018-06-11] MEDS: GABAPENTIN 100 MG CAPSULE PO SCH ×3 (08:52→21:09)
[2018-06-11] MEDS: FOLIC ACID 1 MG TABLET PO SCH (08:52)
[2018-06-11] MEDS: ENOXAPARIN 40 MG/0.4 ML SYRINGE SUBCUT SCH (08:52)
[2018-06-11] MEDS: DILTIAZEM CD 180 MG CAPSULE PO SCH ×2 (08:54→21:28)
[2018-06-11] MEDS: LEVOFLOXACIN INJ 750 MG in PREMIX 1 EACH IV SCH (15:57)
[2018-06-11] MEDS: MAGNESIUM CHLORIDE 64 MG TABLET PO SCH (21:08)
[2018-06-11] MEDS: MELATONIN 3 MG TABLET PO PRN (21:08)
[2018-06-12] MEDS: CLINDAMYCIN INJ 900 MG in PREMIX 1 EACH IV SCH ×4 (01:28→23:45)
[2018-06-12] MEDS: ACETAMINOPHEN 500 MG TABLET PO SCH ×4 (03:33→20:26)
[2018-06-12] MEDS: AMPICILLIN INJ 2,000 MG in SODIUM CHLORIDE 0.9% 100 ML IV SCH ×4 (03:33→21:48)
[2018-06-12 06:08] LABS: Basophils # 0.1 10*3/uL (0.0-0.2); Basophils % 0.3 % (0.0-0.8); Eosinophils # 0.4 10*3/uL (0.0-0.87); Eosinophils % 0.9 % (0.00-10.9); Hemoglobin 8.6 GM/DL (14.0-18.0); Immature Granulocytes % 5.4 %; Lymphocytes # 1.1 10*3/uL (1.4-4.0); Mean Corpuscular HGB Conc 34.4 GM/DL (32-36); Mean Corpuscular Hemoglobin 30 PG (27-34); Mean Corpuscular Volume 87.4 FL (87-102); Mean Platelet Volume 10.6 FL (9.6-12.0); Monocytes # 1.2 10*3/uL (0.11-0.8); Monocytes % 3.3 % (1.7-12.7); Neutrophils # 32.5 10*3/uL (1.4-7.4); Neutrophils % 87.1 % (38.7-73.9); Platelet Count 334 T/CUMM (130-400); Red Blood Count 2.86 MC/CUMM (3.8-5.5); Red Cell Distribution Width 16.1 % (9.3-17.3); White Blood Count 37.3 T/CUMM (4-12)
[2018-06-12 06:43] LABS: Calcium 6.9 MG/DL (8.5-10.1); Osmolality,Calculated 275.7 MOS/KG (273-304)
[2018-06-12] MEDS: THIAMINE 100 MG TABLET PO SCH (09:20)
[2018-06-12] MEDS: CYANOCOBALAMIN 500 MCG TABLET PO SCH (09:21)
[2018-06-12] MEDS: levETIRAcetam 500 MG TABLET PO SCH ×2 (09:21→20:26)
[2018-06-12] MEDS: FOLIC ACID 1 MG TABLET PO SCH (09:21)
[2018-06-12] MEDS: MULTIVITAMIN (CENTRUM) TABLET PO SCH (09:21)
[2018-06-12] MEDS: IRON (CARBONYL)/VIT C/B12/FA TABLET PO SCH (09:21)
[2018-06-12] MEDS: GABAPENTIN 100 MG CAPSULE PO SCH ×3 (09:22→20:26)
[2018-06-12] MEDS: PANTOPRAZOLE 40 MG TABLET PO SCH (09:22)
[2018-06-12] MEDS: CELECOXIB 200 MG CAPSULE PO SCH ×2 (09:22→20:25)
[2018-06-12] MEDS: MAGNESIUM CHLORIDE 64 MG TABLET PO SCH ×2 (09:22→20:25)
[2018-06-12] MEDS: ENOXAPARIN 40 MG/0.4 ML SYRINGE SUBCUT SCH (09:22)
[2018-06-12 11:38] LABS: Band Neutrophils 4 % (0-10); Eosinophils 1 % (0-10); Segmented Neutrophils 93 % (50-85); Total Cells Counted 100
[2018-06-12 12:16] LABS: Anisocytosis 1+; Burr Cells Few; Ovalocytes Slight; Platelet Estimate Normal; Polychromasia Slight
[2018-06-12] MEDS: LOPERAMIDE 2 MG CAPSULE PO PRN ×2 (12:50→15:55)
[2018-06-12] MEDS: LEVOFLOXACIN INJ 750 MG in PREMIX 1 EACH IV SCH (15:12)
[2018-06-12] MEDS: MELATONIN 3 MG TABLET PO PRN (20:30)
[2018-06-13] MEDS: ACETAMINOPHEN 500 MG TABLET PO SCH ×4 (04:06→22:03)
[2018-06-13] MEDS: AMPICILLIN INJ 2,000 MG in SODIUM CHLORIDE 0.9% 100 ML IV SCH (04:06)
[2018-06-13 05:46] LABS: Calcium 7.5 MG/DL (8.5-10.1); Osmolality,Calculated 278.5 MOS/KG (273-304); Potassium 3.9 MMOL/L (3.5-5.1)
[2018-06-13] MEDS: FOLIC ACID 1 MG TABLET PO SCH (08:48)
[2018-06-13] MEDS: PANTOPRAZOLE 40 MG TABLET PO SCH (08:48)
[2018-06-13] MEDS: MAGNESIUM CHLORIDE 64 MG TABLET PO SCH ×2 (08:48→22:03)
[2018-06-13] MEDS: CYANOCOBALAMIN 500 MCG TABLET PO SCH (08:48)
[2018-06-13] MEDS: MULTIVITAMIN (CENTRUM) TABLET PO SCH (08:49)
[2018-06-13] MEDS: levETIRAcetam 500 MG TABLET PO SCH ×2 (08:49→22:03)
[2018-06-13] MEDS: IRON (CARBONYL)/VIT C/B12/FA TABLET PO SCH (08:49)
[2018-06-13] MEDS: CELECOXIB 200 MG CAPSULE PO SCH (08:49)
[2018-06-13] MEDS: GABAPENTIN 100 MG CAPSULE PO SCH ×3 (08:50→22:04)
[2018-06-13] MEDS: ENOXAPARIN 40 MG/0.4 ML SYRINGE SUBCUT SCH (08:50)
[2018-06-13 08:55] LABS: Basophils # 0.1 10*3/uL (0.0-0.2); Basophils % 0.2 % (0.0-0.8); Eosinophils # 0.3 10*3/uL (0.0-0.87); Eosinophils % 1.3 % (0.00-10.9); Hemoglobin 8.2 GM/DL (14.0-18.0); Immature Granulocytes % 5.9 %; Immature Granulocytes Absolute 1.56 #; Lymphocytes # 1.1 10*3/uL (1.4-4.0); Mean Corpuscular HGB Conc 32.8 GM/DL (32-36); Mean Corpuscular Hemoglobin 30 PG (27-34); Mean Corpuscular Volume 89.9 FL (87-102); Mean Platelet Volume 10.7 FL (9.6-12.0); Monocytes # 1.2 10*3/uL (0.11-0.8); Monocytes % 4.5 % (1.7-12.7); Neutrophils # 22.3 10*3/uL (1.4-7.4); Neutrophils % 84.1 % (38.7-73.9); Platelet Count 349 T/CUMM (130-400); Red Blood Count 2.78 MC/CUMM (3.8-5.5); Red Cell Distribution Width 16.3 % (9.3-17.3); White Blood Count 26.5 T/CUMM (4-12)
[2018-06-13] MEDS: LOPERAMIDE 2 MG CAPSULE PO PRN (09:03)
[2018-06-13 09:13] LABS: Albumin 1.1 G/DL (3.4-5.0); Bilirubin,Total 0.6 MG/DL (0.2-1.0); Calcium 7.4 MG/DL (8.5-10.1); Osmolality,Calculated 282.3 MOS/KG (273-304); Potassium 4.1 MMOL/L (3.5-5.1); Total Protein 4.7 G/DL (6.4-8.3)
[2018-06-13 09:16] LABS: Band Neutrophils 3 % (0-10); Hypochromasia Slight; Lymphocytes 1 % (20-55); Segmented Neutrophils 95 % (50-85); Total Cells Counted 100
[2018-06-13 09:17] LABS: Microcytosis 1+
[2018-06-13] MEDS: THIAMINE 100 MG TABLET PO SCH (09:43)
[2018-06-13] MEDS: CLINDAMYCIN INJ 900 MG in PREMIX 1 EACH IV SCH (09:43)
[2018-06-13] MEDS: ALBUTEROL/IPRATROPIUM 3 ML NEB RESP TX SCH ×2 (14:00→18:54)
[2018-06-13] MEDS: FERROUS SULFATE 325 MG TABLET PO SCH ×2 (14:05→22:03)
[2018-06-13] MEDS: SODIUM CHLORIDE 0.45% 1,000 ML IV SCH (14:07)
[2018-06-13] MEDS ORDERED: AMPICILLIN INJ 2,000 MG in SODIUM CHLORIDE 0.9% 100 ML IV SCH (16:00)
[2018-06-13] MEDS: AMPICILLIN/SULBACTAM 3,000 MG in SODIUM CHLORIDE 0.9% 100 ML IV SCH (16:35)
[2018-06-13] MEDS: MELATONIN 3 MG TABLET PO PRN (22:03)
[2018-06-14] MEDS: ALBUTEROL/IPRATROPIUM 3 ML NEB RESP TX SCH ×4 (01:34→20:00)
[2018-06-14] MEDS: SODIUM CHLORIDE 0.45% 1,000 ML IV SCH ×2 (02:53→22:48)
[2018-06-14] MEDS: AMPICILLIN/SULBACTAM 3,000 MG in SODIUM CHLORIDE 0.9% 100 ML IV SCH ×2 (03:14→17:48)
[2018-06-14] MEDS: AMPICILLIN INJ 2,000 MG in SODIUM CHLORIDE 0.9% 100 ML IV SCH (03:43)
[2018-06-14] MEDS: ACETAMINOPHEN 500 MG TABLET PO SCH ×4 (03:51→21:27)
[2018-06-14 04:39] LABS: Basophils # 0.1 10*3/uL (0.0-0.2); Basophils % 0.3 % (0.0-0.8); Eosinophils # 0.3 10*3/uL (0.0-0.87); Eosinophils % 1.2 % (0.00-10.9); Hematocrit 23.1 VOL% (42.0-52.0); Hemoglobin 7.7 GM/DL (14.0-18.0); Immature Granulocytes % 5.3 %; Lymphocytes # 1.3 10*3/uL (1.4-4.0); Lymphocytes % 5.5 % (21.2-54.2); Mean Corpuscular HGB Conc 33.3 GM/DL (32-36); Mean Corpuscular Hemoglobin 29 PG (27-34); Mean Corpuscular Volume 88.2 FL (87-102); Mean Platelet Volume 10.9 FL (9.6-12.0); Monocytes # 1.5 10*3/uL (0.11-0.8); Monocytes % 6.4 % (1.7-12.7); NRBC # 0.04 10*3/uL; Neutrophils # 18.6 10*3/uL (1.4-7.4); Neutrophils % 81.3 % (38.7-73.9); Platelet Count 356 T/CUMM (130-400); Red Blood Count 2.62 MC/CUMM (3.8-5.5); Red Cell Distribution Width 16.3 % (9.3-17.3); White Blood Count 22.8 T/CUMM (4-12)
[2018-06-14 05:05] LABS: Bilirubin,Total 0.6 MG/DL (0.2-1.0); Calcium 7.3 MG/DL (8.5-10.1); Osmolality,Calculated 284.1 MOS/KG (273-304); Potassium 3.7 MMOL/L (3.5-5.1); Total Protein 5.5 G/DL (6.4-8.3)
[2018-06-14 05:10] LABS: Band Neutrophils 1 % (0-10); Lymphocytes 16 % (20-55); Platelet Estimate Normal; Segmented Neutrophils 79 % (50-85); Total Cells Counted 100
[2018-06-14] MEDS: ENOXAPARIN 40 MG/0.4 ML SYRINGE SUBCUT SCH (09:41)
[2018-06-14] MEDS ORDERED: SODIUM CHLORIDE 0.9% 1,000 ML IV PRN (09:53)
[2018-06-14] MEDS ORDERED: ERGOCALCIFEROL 50,000 UNIT CAPSULE PO SCH (10:30)
[2018-06-14] MEDS: levETIRAcetam 500 MG TABLET PO SCH ×2 (10:47→21:25)
[2018-06-14] MEDS: IRON (CARBONYL)/VIT C/B12/FA TABLET PO SCH (10:48)
[2018-06-14] MEDS: MAGNESIUM CHLORIDE 64 MG TABLET PO SCH ×2 (10:48→21:26)
[2018-06-14] MEDS: FERROUS SULFATE 325 MG TABLET PO SCH ×3 (10:49→21:26)
[2018-06-14] MEDS: CYANOCOBALAMIN 500 MCG TABLET PO SCH (10:49)
[2018-06-14] MEDS: THIAMINE 100 MG TABLET PO SCH (10:49)
[2018-06-14] MEDS: GABAPENTIN 100 MG CAPSULE PO SCH ×3 (10:51→21:26)
[2018-06-14] MEDS: FOLIC ACID 1 MG TABLET PO SCH (10:52)
[2018-06-14] MEDS: MULTIVITAMIN (CENTRUM) TABLET PO SCH (10:52)
[2018-06-14] MEDS: PANTOPRAZOLE 40 MG TABLET PO SCH (10:56)
[2018-06-14] MEDS: CHOLECALCIFEROL 5,000 UNIT TABLET PO SCH (11:16)
[2018-06-14] MEDS: DILTIAZEM 90 MG TABLET PO SCH ×2 (11:17→21:26)
[2018-06-14] MEDS ORDERED: LEVOFLOXACIN INJ 750 MG in PREMIX 1 EACH IV SCH (15:00)
[2018-06-14] MEDS ORDERED: FUROSEMIDE 40 MG/4 ML VIAL ONE (16:16)
[2018-06-14] MEDS ORDERED: FUROSEMIDE 40 MG/4 ML VIAL IV ONE ×2 (16:34→16:37)
[2018-06-14] MEDS: MELATONIN 3 MG TABLET PO PRN (21:26)
[2018-06-15 00:12] LABS: Hematocrit 27.1 VOL% (42.0-52.0); Hemoglobin 9.2 GM/DL (14.0-18.0)
[2018-06-15] MEDS: ALBUTEROL/IPRATROPIUM 3 ML NEB RESP TX SCH ×2 (01:00→07:05)
[2018-06-15] MEDS: AMPICILLIN/SULBACTAM 3,000 MG in SODIUM CHLORIDE 0.9% 100 ML IV SCH (02:59)
[2018-06-15] MEDS: ACETAMINOPHEN 500 MG TABLET PO SCH ×2 (03:00→10:15)
[2018-06-15] MEDS: SODIUM CHLORIDE 0.45% 1,000 ML IV SCH (04:25)
[2018-06-15] MEDS: DILTIAZEM 90 MG TABLET PO SCH (09:58)
[2018-06-15] MEDS: levETIRAcetam 500 MG TABLET PO SCH (10:13)
[2018-06-15] MEDS: GABAPENTIN 100 MG CAPSULE PO SCH (10:14)
[2018-06-15] MEDS: MULTIVITAMIN (CENTRUM) TABLET PO SCH (10:14)
[2018-06-15] MEDS: MAGNESIUM CHLORIDE 64 MG TABLET PO SCH (10:14)
[2018-06-15] MEDS: IRON (CARBONYL)/VIT C/B12/FA TABLET PO SCH (10:15)
[2018-06-15] MEDS: FOLIC ACID 1 MG TABLET PO SCH (10:15)
[2018-06-15] MEDS: CHOLECALCIFEROL 5,000 UNIT TABLET PO SCH (10:15)
[2018-06-15] MEDS: FERROUS SULFATE 325 MG TABLET PO SCH (10:15)
[2018-06-15] MEDS: THIAMINE 100 MG TABLET PO SCH (10:15)
[2018-06-15] MEDS: CYANOCOBALAMIN 500 MCG TABLET PO SCH (10:15)
[2018-06-15] MEDS: PANTOPRAZOLE 40 MG TABLET PO SCH (10:16)
[2018-06-15] MEDS: ENOXAPARIN 40 MG/0.4 ML SYRINGE SUBCUT SCH (10:16)
[2018-06-15 10:48] LABS: Albumin 1.2 G/DL (3.4-5.0); Bilirubin,Total 0.4 MG/DL (0.2-1.0); Calcium 7.9 MG/DL (8.5-10.1); Osmolality,Calculated 280.3 MOS/KG (273-304); Potassium 3.5 MMOL/L (3.5-5.1); Total Protein 6.2 G/DL (6.4-8.3)
[2018-06-15 11:21] VITALS: BP 157/88
== END 2018-06-15 12:45 | DRG 163 ==
LOC: SUATTDRO 19:10 → N.5E 19:10 → N.ICU 06-08 14:36 → N.TELEN 06-11 16:30
PROVIDERS: ADMIT Internal Medicine; ATTEND Internal Medicine

== ENCOUNTER 2018-07-22 13:03 | Inpatient (IN) ==
[2018-07-22] MEDS ORDERED: ONDANSETRON 4 MG/2 ML VIAL IV PRN (15:38)
[2018-07-22] MEDS ORDERED: ACETAMINOPHEN 325 MG TABLET PO PRN (15:38)
[2018-07-22 15:46] LABS: Basophils # 0.1 10*3/uL (0.0-0.2); Basophils % 0.6 % (0.0-0.8); Eosinophils # 0.1 10*3/uL (0.0-0.87); Hematocrit 29.4 VOL% (42.0-52.0); Hemoglobin 9.3 GM/DL (14.0-18.0); Immature Granulocytes % 0.4 %; Immature Granulocytes Absolute 0.04 #; Lymphocytes # 1.6 10*3/uL (1.4-4.0); Lymphocytes % 16.6 % (21.2-54.2); Mean Corpuscular HGB Conc 31.6 GM/DL (32-36); Mean Corpuscular Hemoglobin 30 PG (27-34); Mean Corpuscular Volume 94.8 FL (87-102); Mean Platelet Volume 9.8 FL (9.6-12.0); Monocytes # 0.8 10*3/uL (0.11-0.8); Monocytes % 8.9 % (1.7-12.7); Neutrophils # 6.9 10*3/uL (1.4-7.4); Neutrophils % 72.5 % (38.7-73.9); Platelet Count 278 T/CUMM (130-400); Red Cell Distribution Width 17.8 % (9.3-17.3); White Blood Count 9.5 T/CUMM (4-12)
[2018-07-22] MEDS ORDERED: LORazepam 2 MG/1 ML VIAL IV PRN (15:48)
[2018-07-22 16:07] LABS: Albumin 2.5 G/DL (3.4-5.0); Bilirubin,Total 0.6 MG/DL (0.2-1.0); Calcium 8.7 MG/DL (8.5-10.1); Osmolality,Calculated 271.8 MOS/KG (273-304); Potassium 3.7 MMOL/L (3.5-5.1); Total Protein 7.9 G/DL (6.4-8.3)
[2018-07-22] MEDS: AMPICILLIN/SULBACTAM 3,000 MG in SODIUM CHLORIDE 0.9% 100 ML IV SCH ×2 (16:34→23:50)
[2018-07-22] MEDS: levETIRAcetam 500 MG TABLET PO SCH (21:28)
[2018-07-22] MEDS: DILTIAZEM CD 180 MG CAPSULE PO SCH (21:28)
[2018-07-23] MEDS: AMPICILLIN/SULBACTAM 3,000 MG in SODIUM CHLORIDE 0.9% 100 ML IV SCH ×3 (04:41→16:55)
[2018-07-23 05:23] LABS: Basophils # 0.1 10*3/uL (0.0-0.2); Basophils % 0.6 % (0.0-0.8); Eosinophils # 0.2 10*3/uL (0.0-0.87); Hematocrit 32.2 VOL% (42.0-52.0); Hemoglobin 9.9 GM/DL (14.0-18.0); Immature Granulocytes % 0.4 %; Immature Granulocytes Absolute 0.03 #; Lymphocytes # 1.6 10*3/uL (1.4-4.0); Lymphocytes % 19.9 % (21.2-54.2); Mean Corpuscular HGB Conc 30.7 GM/DL (32-36); Mean Corpuscular Hemoglobin 29 PG (27-34); Mean Corpuscular Volume 94.2 FL (87-102); Monocytes # 0.9 10*3/uL (0.11-0.8); Neutrophils # 5.1 10*3/uL (1.4-7.4); Neutrophils % 65.1 % (38.7-73.9); Platelet Count 281 T/CUMM (130-400); Red Blood Count 3.42 MC/CUMM (3.8-5.5); Red Cell Distribution Width 17.4 % (9.3-17.3); White Blood Count 7.9 T/CUMM (4-12)
[2018-07-23 05:40] LABS: Albumin 2.4 G/DL (3.4-5.0); Bilirubin,Total 0.9 MG/DL (0.2-1.0); Calcium 8.5 MG/DL (8.5-10.1); Osmolality,Calculated 274.5 MOS/KG (273-304); Potassium 3.2 MMOL/L (3.5-5.1); Total Protein 7.8 G/DL (6.4-8.3)
[2018-07-23] MEDS ORDERED: MAGNESIUM SULF RIDER 4 GM in PREMIX 1 EACH IV PRN (07:16)
[2018-07-23] MEDS: levETIRAcetam 500 MG TABLET PO SCH ×2 (07:59→21:29)
[2018-07-23] MEDS: CYANOCOBALAMIN 500 MCG TABLET PO SCH (08:00)
[2018-07-23] MEDS ORDERED: LIDOCAINE 1%/EPI INJ 20 ML VIAL MISC INJ ONE (08:00)
[2018-07-23] MEDS: PANTOPRAZOLE 40 MG TABLET PO SCH (08:00)
[2018-07-23] MEDS: THIAMINE 100 MG TABLET PO SCH (08:00)
[2018-07-23] MEDS ORDERED: MIDAZOLAM 10 MG/2 ML VIAL IV ONE (08:00)
[2018-07-23] MEDS: FOLIC ACID 1 MG TABLET PO SCH (08:00)
[2018-07-23] MEDS: MULTIVITAMIN (CENTRUM) TABLET PO SCH (08:00)
[2018-07-23] MEDS: MAGNESIUM SULF RIDER 2 GM in PREMIX 1 EACH IV PRN ×2 (08:01→09:49)
[2018-07-23] MEDS ORDERED: ERGOCALCIFEROL 50,000 UNIT CAPSULE PO SCH (09:00)
[2018-07-23] MEDS ORDERED: MORPHINE 4 MG/1 ML VIAL ONE ×2 (15:39→15:41)
[2018-07-23] MEDS ORDERED: MORPHINE 10 MG/1 ML VIAL IV ONE (15:41)
[2018-07-23] MEDS: POTASSIUM CHLORIDE RIDER 10 MEQ in PREMIX 1 EACH IV PRN ×2 (18:08→21:46)
[2018-07-23] MEDS: DOCUSATE SODIUM 100 MG CAPSULE PO SCH (21:25)
[2018-07-23] MEDS: DILTIAZEM CD 180 MG CAPSULE PO SCH (21:26)
[2018-07-23 21:43] LABS: Lymphocytes,Pleural Fluid 6 %; Monocytes,Pleural Fluid 3 %; Neutrophils,Pleural Fluid 91 %
[2018-07-23 21:47] LABS: RBC,Pleural Fluid 22918 T/CUMM
[2018-07-24] MEDS: AMPICILLIN/SULBACTAM 3,000 MG in SODIUM CHLORIDE 0.9% 100 ML IV SCH ×4 (00:22→18:40)
[2018-07-24] MEDS: POTASSIUM CHLORIDE RIDER 10 MEQ in PREMIX 1 EACH IV PRN ×2 (02:28→03:44)
[2018-07-24 07:47] LABS: HIV Antigen/Antibody Result Nonreactive (Nonreactive)
[2018-07-24] MEDS: POTASSIUM CHLORIDE 20 MEQ TABLET PO SCH (08:28)
[2018-07-24] MEDS: MULTIVITAMIN (CENTRUM) TABLET PO SCH (08:28)
[2018-07-24] MEDS: MULTIVITAMIN (BEROCCA) TABLET PO SCH (08:28)
[2018-07-24] MEDS: THIAMINE 100 MG TABLET PO SCH (08:28)
[2018-07-24] MEDS: CYANOCOBALAMIN 500 MCG TABLET PO SCH (08:28)
[2018-07-24] MEDS: ENOXAPARIN 40 MG/0.4 ML SYRINGE SUBCUT SCH (08:28)
[2018-07-24] MEDS: FOLIC ACID 1 MG TABLET PO SCH (08:28)
[2018-07-24] MEDS: levETIRAcetam 500 MG TABLET PO SCH ×2 (08:28→20:29)
[2018-07-24] MEDS: DOCUSATE SODIUM 100 MG CAPSULE PO SCH ×2 (08:29→20:29)
[2018-07-24] MEDS: PANTOPRAZOLE 40 MG TABLET PO SCH (08:29)
[2018-07-24 09:00] LABS: Calcium 8.1 MG/DL (8.5-10.1)
[2018-07-24] MEDS: MAGNESIUM SULF RIDER 2 GM in PREMIX 1 EACH IV PRN (11:05)
[2018-07-24] MEDS: DILTIAZEM CD 180 MG CAPSULE PO SCH (20:29)
[2018-07-25] MEDS: AMPICILLIN/SULBACTAM 3,000 MG in SODIUM CHLORIDE 0.9% 100 ML IV SCH ×3 (00:17→15:36)
[2018-07-25] MEDS: MULTIVITAMIN (BEROCCA) TABLET PO SCH (08:01)
[2018-07-25] MEDS: PANTOPRAZOLE 40 MG TABLET PO SCH (08:02)
[2018-07-25] MEDS: THIAMINE 100 MG TABLET PO SCH (08:03)
[2018-07-25] MEDS: levETIRAcetam 500 MG TABLET PO SCH ×2 (08:03→21:02)
[2018-07-25] MEDS: FOLIC ACID 1 MG TABLET PO SCH (08:03)
[2018-07-25] MEDS: DOCUSATE SODIUM 100 MG CAPSULE PO SCH ×2 (08:03→21:03)
[2018-07-25] MEDS: POTASSIUM CHLORIDE 20 MEQ TABLET PO SCH (08:03)
[2018-07-25] MEDS: CYANOCOBALAMIN 500 MCG TABLET PO SCH (08:04)
[2018-07-25] MEDS: MULTIVITAMIN (CENTRUM) TABLET PO SCH (08:04)
[2018-07-25] MEDS: MAGNESIUM CHLORIDE 64 MG TABLET PO SCH (08:04)
[2018-07-25] MEDS: ENOXAPARIN 40 MG/0.4 ML SYRINGE SUBCUT SCH (08:04)
[2018-07-25] MEDS: AMOXICILLIN/CLAV 875 MG TABLET PO SCH (21:01)
[2018-07-25] MEDS: DILTIAZEM CD 180 MG CAPSULE PO SCH (21:02)
[2018-07-26] MEDS: CYANOCOBALAMIN 500 MCG TABLET PO SCH (08:17)
[2018-07-26] MEDS: MULTIVITAMIN (BEROCCA) TABLET PO SCH (08:18)
[2018-07-26] MEDS: MAGNESIUM CHLORIDE 64 MG TABLET PO SCH (08:18)
[2018-07-26] MEDS: MULTIVITAMIN (CENTRUM) TABLET PO SCH (08:18)
[2018-07-26] MEDS: FOLIC ACID 1 MG TABLET PO SCH (08:19)
[2018-07-26] MEDS: levETIRAcetam 500 MG TABLET PO SCH (08:19)
[2018-07-26] MEDS: POTASSIUM CHLORIDE 20 MEQ TABLET PO SCH (08:19)
[2018-07-26] MEDS: THIAMINE 100 MG TABLET PO SCH (08:19)
[2018-07-26] MEDS: AMOXICILLIN/CLAV 875 MG TABLET PO SCH (08:19)
[2018-07-26] MEDS: DOCUSATE SODIUM 100 MG CAPSULE PO SCH (08:19)
[2018-07-26] MEDS: PANTOPRAZOLE 40 MG TABLET PO SCH (08:21)
[2018-07-26] MEDS: ENOXAPARIN 40 MG/0.4 ML SYRINGE SUBCUT SCH (08:21)
[2018-07-26 08:51] LABS: Basophils % 0.6 % (0.0-0.8); Eosinophils # 0.3 10*3/uL (0.0-0.87); Eosinophils % 5.2 % (0.00-10.9); Hematocrit 33.2 VOL% (42.0-52.0); Hemoglobin 10.5 GM/DL (14.0-18.0); Immature Granulocytes % 0.3 %; Immature Granulocytes Absolute 0.02 #; Lymphocytes # 1.7 10*3/uL (1.4-4.0); Lymphocytes % 27.2 % (21.2-54.2); Mean Corpuscular HGB Conc 31.6 GM/DL (32-36); Mean Corpuscular Hemoglobin 30 PG (27-34); Mean Corpuscular Volume 96.2 FL (87-102); Mean Platelet Volume 9.7 FL (9.6-12.0); Monocytes # 0.6 10*3/uL (0.11-0.8); Monocytes % 9.6 % (1.7-12.7); Neutrophils # 3.6 10*3/uL (1.4-7.4); Neutrophils % 57.1 % (38.7-73.9); Platelet Count 271 T/CUMM (130-400); Red Blood Count 3.45 MC/CUMM (3.8-5.5); White Blood Count 6.3 T/CUMM (4-12)
[2018-07-26 09:25] LABS: Calcium 8.7 MG/DL (8.5-10.1); Osmolality,Calculated 274.7 MOS/KG (273-304); Potassium 3.8 MMOL/L (3.5-5.1)
[2018-07-26 11:25] VITALS: BP 112/71
== END 2018-07-26 16:19 | disposition home health service (06) | DRG 186 ==
LOC: SUATTDRO 14:15 → N.5E 14:15
PROVIDERS: ADMIT Internal Medicine; ATTEND Internal Medicine

== ENCOUNTER 2018-09-12 14:39 | Observation (INO) ==
[2018-09-12] MEDS ORDERED: ACETAMINOPHEN 325 MG TABLET PO PRN ×2 (17:42→17:46)
[2018-09-12] MEDS ORDERED: ERGOCALCIFEROL 50,000 UNIT CAPSULE PO SCH (18:00)
[2018-09-12] MEDS ORDERED: chlordiazePOXIDE 25 MG CAPSULE PO PRN (18:04)
[2018-09-12] MEDS: LORazepam 2 MG/1 ML VIAL IV PRN (18:37)
[2018-09-12] MEDS: ONDANSETRON 4 MG/2 ML VIAL IV PRN (18:37)
[2018-09-12 19:05] LABS: Basophils # 0.1 10*3/uL (0.0-0.2); Basophils % 0.6 % (0.0-0.8); Eosinophils % 0.1 % (0.00-10.9); Hematocrit 36.3 VOL% (42.0-52.0); Hemoglobin 11.8 GM/DL (14.0-18.0); Immature Granulocytes % 0.3 %; Immature Granulocytes Absolute 0.03 #; Lymphocytes # 1.1 10*3/uL (1.4-4.0); Lymphocytes % 11.8 % (21.2-54.2); Mean Corpuscular HGB Conc 32.5 GM/DL (32-36); Mean Corpuscular Hemoglobin 31 PG (27-34); Mean Platelet Volume 9.7 FL (9.6-12.0); Monocytes # 1.1 10*3/uL (0.11-0.8); Monocytes % 11.2 % (1.7-12.7); Neutrophils # 7.1 10*3/uL (1.4-7.4); Platelet Count 198 T/CUMM (130-400); Red Blood Count 3.82 MC/CUMM (3.8-5.5); Red Cell Distribution Width 13.2 % (9.3-17.3); White Blood Count 9.4 T/CUMM (4-12)
[2018-09-12 19:28] LABS: Albumin 3.4 G/DL (3.4-5.0); Bilirubin,Total 0.5 MG/DL (0.2-1.0); Calcium 8.6 MG/DL (8.5-10.1); Osmolality,Calculated 275.7 MOS/KG (273-304)
[2018-09-12] MEDS: LACTOBACILLUS RHAMNOSUS GG CAPSULE PO SCH (21:46)
[2018-09-12] MEDS: levETIRAcetam 500 MG TABLET PO SCH (21:46)
[2018-09-12] MEDS: DILTIAZEM CD 180 MG CAPSULE PO SCH (21:46)
[2018-09-12] MEDS: AMOXICILLIN/CLAV 875 MG TABLET PO SCH (21:46)
[2018-09-12] MEDS: MAGNESIUM CHLORIDE 64 MG TABLET PO SCH (21:47)
[2018-09-12] MEDS: CYANOCOBALAMIN 500 MCG TABLET PO SCH (21:47)
[2018-09-13 02:10] LABS: Apearance,Urine CLEAR (Clear); Bilirubin,Urine Negative (Negative); Blood, Urine Small mg/dL (Negative); Glucose,Urine (UA) Negative (Negative); Ketones,Urine 20 mg/dL (Negative); Mucus,Urine Occasional /LPF (Occasional); Nitrite,Urine Negative (Negative); Protein,Urine Negative; RBC,Urine <1 /HPF (0-4); Urine Color Yellow (Yellow); Urine Urobilinogen < 2.0 EU/DL (0.2-1.0)
[2018-09-13 02:37] LABS: Barbiturates Screen,Urine Negative (Negative); Benzodiazepines Screen,Urine Negative (Negative); Cannabinoid Screen,Urine Negative (Negative); Opiate Screen,Urine Negative (Negative); Phencyclidine Screen,Urine Negative (Negative)
[2018-09-13 05:04] LABS: Basophils # 0.1 10*3/uL (0.0-0.2); Basophils % 0.7 % (0.0-0.8); Eosinophils # 0.1 10*3/uL (0.0-0.87); Eosinophils % 1.4 % (0.00-10.9); Hematocrit 36.1 VOL% (42.0-52.0); Hemoglobin 11.5 GM/DL (14.0-18.0); Immature Granulocytes % 0.3 %; Immature Granulocytes Absolute 0.02 #; Lymphocytes # 1.5 10*3/uL (1.4-4.0); Lymphocytes % 21.9 % (21.2-54.2); Mean Corpuscular HGB Conc 31.9 GM/DL (32-36); Mean Corpuscular Hemoglobin 30 PG (27-34); Mean Platelet Volume 10.2 FL (9.6-12.0); Monocytes # 0.9 10*3/uL (0.11-0.8); Monocytes % 13.1 % (1.7-12.7); Neutrophils # 4.4 10*3/uL (1.4-7.4); Neutrophils % 62.6 % (38.7-73.9); Platelet Count 190 T/CUMM (130-400); Red Blood Count 3.84 MC/CUMM (3.8-5.5); Red Cell Distribution Width 13.3 % (9.3-17.3)
[2018-09-13 05:26] LABS: Calcium 8.9 MG/DL (8.5-10.1); Osmolality,Calculated 274.5 MOS/KG (273-304); Potassium 3.1 MMOL/L (3.5-5.1)
[2018-09-13 05:29] LABS: Albumin 3.3 G/DL (3.4-5.0); Bilirubin,Total 0.8 MG/DL (0.2-1.0); Calcium 8.9 MG/DL (8.5-10.1); Osmolality,Calculated 274.5 MOS/KG (273-304); Potassium 3.2 MMOL/L (3.5-5.1); Total Protein 7.8 G/DL (6.4-8.3)
[2018-09-13] MEDS: levETIRAcetam 500 MG TABLET PO SCH ×2 (08:36→20:51)
[2018-09-13] MEDS: PANTOPRAZOLE 40 MG TABLET PO SCH (08:36)
[2018-09-13] MEDS: LACTOBACILLUS RHAMNOSUS GG CAPSULE PO SCH ×2 (08:36→20:50)
[2018-09-13] MEDS: FOLIC ACID 1 MG TABLET PO SCH (08:36)
[2018-09-13] MEDS: MULTIVITAMIN (BEROCCA) TABLET PO SCH (08:36)
[2018-09-13] MEDS: MAGNESIUM CHLORIDE 64 MG TABLET PO SCH ×2 (08:36→20:50)
[2018-09-13] MEDS: AMOXICILLIN/CLAV 875 MG TABLET PO SCH ×2 (08:37→20:50)
[2018-09-13] MEDS: CYANOCOBALAMIN 500 MCG TABLET PO SCH ×2 (08:37→20:50)
[2018-09-13] MEDS: THIAMINE 100 MG TABLET PO SCH (08:40)
[2018-09-13] MEDS: POTASSIUM CHLORIDE 20 MEQ TABLET PO SCH (08:40)
[2018-09-13] MEDS ORDERED: ENOXAPARIN 40 MG/0.4 ML SYRINGE SUBCUT SCH (09:00)
[2018-09-13] MEDS: LORazepam 2 MG/1 ML VIAL IV PRN ×3 (10:25→18:12)
[2018-09-13] MEDS ORDERED: POTASSIUM CHLORIDE 20 MEQ TABLET PO PRN (10:38)
[2018-09-13] MEDS: ONDANSETRON 4 MG/2 ML VIAL IV PRN (14:03)
[2018-09-13] MEDS: DILTIAZEM CD 180 MG CAPSULE PO SCH (20:50)
[2018-09-14 06:21] LABS: Basophils % 0.3 % (0.0-0.8); Eosinophils % 0.1 % (0.00-10.9); Hematocrit 36.1 VOL% (42.0-52.0); Hemoglobin 11.9 GM/DL (14.0-18.0); Immature Granulocytes % 0.3 %; Immature Granulocytes Absolute 0.03 #; Lymphocytes # 0.6 10*3/uL (1.4-4.0); Lymphocytes % 7.2 % (21.2-54.2); Mean Corpuscular Hemoglobin 31 PG (27-34); Mean Corpuscular Volume 93.3 FL (87-102); Mean Platelet Volume 10.5 FL (9.6-12.0); Monocytes # 0.6 10*3/uL (0.11-0.8); Monocytes % 6.5 % (1.7-12.7); Neutrophils # 7.6 10*3/uL (1.4-7.4); Neutrophils % 85.6 % (38.7-73.9); Platelet Count 146 T/CUMM (130-400); Red Blood Count 3.87 MC/CUMM (3.8-5.5); Red Cell Distribution Width 12.8 % (9.3-17.3); White Blood Count 8.9 T/CUMM (4-12)
[2018-09-14 06:56] LABS: Calcium 9.2 MG/DL (8.5-10.1); Potassium 3.2 MMOL/L (3.5-5.1)
[2018-09-14 07:49] VITALS: BP 138/77
[2018-09-14] MEDS: LACTOBACILLUS RHAMNOSUS GG CAPSULE PO SCH (09:30)
[2018-09-14] MEDS: CYANOCOBALAMIN 500 MCG TABLET PO SCH (09:30)
[2018-09-14] MEDS: levETIRAcetam 500 MG TABLET PO SCH (09:31)
[2018-09-14] MEDS: MAGNESIUM CHLORIDE 64 MG TABLET PO SCH (09:31)
[2018-09-14] MEDS: THIAMINE 100 MG TABLET PO SCH (09:31)
[2018-09-14] MEDS: AMOXICILLIN/CLAV 875 MG TABLET PO SCH (09:31)
[2018-09-14] MEDS: MULTIVITAMIN (BEROCCA) TABLET PO SCH (09:31)
[2018-09-14] MEDS: FOLIC ACID 1 MG TABLET PO SCH (09:31)
[2018-09-14] MEDS: PANTOPRAZOLE 40 MG TABLET PO SCH (09:31)
[2018-09-14] MEDS: POTASSIUM CHLORIDE 20 MEQ TABLET PO SCH (09:31)
== END 2018-09-14 12:15 | disposition home or self-care (01) ==
LOC: N.5E → SUATTDRO 16:30 → N.5E 09-14 12:50
PROVIDERS: ADMIT Internal Medicine; ATTEND Internal Medicine

== ENCOUNTER 2019-02-24 20:29 | Inpatient (IN) ==
[2019-02-24] MEDS ORDERED: ONDANSETRON 4 MG/2 ML VIAL IV ONE (21:15)
[2019-02-24] MEDS ORDERED: LACTATED RINGERS 1,000 ML IV SCH (21:30)
[2019-02-24 21:34] LABS: Apearance,Urine CLEAR (Clear); Bilirubin,Urine Negative (Negative); Blood, Urine Moderate mg/dL (Negative); Glucose,Urine (UA) Negative (Negative); Hyaline Casts,Urine 9 /LPF (0-3); Ketones,Urine 80 mg/dL (Negative); Mucus,Urine Occasional /LPF (Occasional); Nitrite,Urine Negative (Negative); Protein,Urine 100 MG/DL; RBC,Urine 1 /HPF (0-4); Urine Color Yellow (Yellow); Urine Specific Gravity 1.018 (1.001-1.035); Urine Urobilinogen < 2.0 EU/DL (0.2-1.0)
[2019-02-24 21:57] LABS: Basophils # 0.1 10*3/uL (0.0-0.2); Basophils % 0.6 % (0.0-0.8); Eosinophils # 0.1 10*3/uL (0.0-0.87); Eosinophils % 0.6 % (0.00-10.9); Hematocrit 41.3 VOL% (42.0-52.0); Hemoglobin 12.8 GM/DL (14.0-18.0); Immature Granulocytes % 0.4 %; Immature Granulocytes Absolute 0.03 #; Lymphocytes # 0.7 10*3/uL (1.4-4.0); Lymphocytes % 8.2 % (21.2-54.2); Mean Platelet Volume 10.2 FL (9.6-12.0); Monocytes % 7.1 % (1.7-12.7); Neutrophils % 83.1 % (38.7-73.9); Platelet Count 125 T/CUMM (130-400); Red Blood Count 4.05 MC/CUMM (3.8-5.5); Red Cell Distribution Width 12.2 % (9.3-17.3); White Blood Count 8.1 T/CUMM (4-12)
[2019-02-24] MEDS ORDERED: LACTATED RINGERS 1,000 ML IV ONE (22:02)
[2019-02-24 22:27] LABS: Barbiturates Screen,Urine Negative (Negative); Benzodiazepines Screen,Urine Negative (Negative); Cannabinoid Screen,Urine Negative (Negative); Opiate Screen,Urine Negative (Negative); Phencyclidine Screen,Urine Negative (Negative)
[2019-02-24] MEDS ORDERED: THIAMINE INJ 100 MG, FOLIC ACID INJ 1 MG, MAGNESIUM SULF INJ 2 GM, MULTIVITAMIN INJ 10 ... IV ONE ×2 (22:27→23:30)
[2019-02-24 22:29] LABS: Albumin 4.3 G/DL (3.4-5.0); Bilirubin,Total 0.4 MG/DL (0.2-1.0); Calcium 9.3 MG/DL (8.5-10.1); Osmolality,Calculated 276.4 MOS/KG (273-304); Total Protein 9.3 G/DL (6.4-8.3)
[2019-02-25] MEDS ORDERED: LORazepam 2 MG/1 ML VIAL ONE (00:42)
[2019-02-25 00:44] LABS: Calcium 8.1 MG/DL (8.5-10.1); Osmolality,Calculated 279.1 MOS/KG (273-304)
[2019-02-25] MEDS ORDERED: levETIRAcetam 500 MG/5 ML VIAL IV ONE (01:12)
[2019-02-25] MEDS ORDERED: ONDANSETRON 4 MG/2 ML VIAL IV STA (01:53)
[2019-02-25] MEDS ORDERED: LACTATED RINGERS 1,000 ML IV ONE (01:55)
[2019-02-25] MEDS ORDERED: LACTATED RINGERS 1,000 ML IV SCH ×2 (01:55→08:30)
[2019-02-25] MEDS ORDERED: guaiFENesin/DM ER 600-30 MG TABLET PO PRN (02:09)
[2019-02-25] MEDS ORDERED: diphenhydrAMINE CAP 25 MG CAPSULE PO PRN (02:09)
[2019-02-25] MEDS ORDERED: PROMETHAZINE 25 MG/1 ML VIAL IM PRN (02:09)
[2019-02-25] MEDS ORDERED: ACETAMINOPHEN 325 MG TABLET PO PRN (02:09)
[2019-02-25] MEDS ORDERED: NICOTINE 21 MG/24 HR PATCH TRANSDERM PRN (02:09)
[2019-02-25] MEDS ORDERED: MORPHINE 4 MG/1 ML VIAL IV PRN (02:09)
[2019-02-25] MEDS ORDERED: LORazepam 2 MG/1 ML VIAL IV PRN (02:09)
[2019-02-25] MEDS ORDERED: BISACODYL 5 MG TABLET PO PRN (02:09)
[2019-02-25] MEDS ORDERED: SODIUM CHLORIDE 0.9% 1,000 ML IV SCH (02:30)
[2019-02-25] MEDS: ONDANSETRON 4 MG/2 ML VIAL IV PRN ×2 (03:53→08:28)
[2019-02-25] MEDS ORDERED: HYDROmorphone 2 MG/1 ML VIAL IV PRN (06:19)
[2019-02-25] MEDS: CIPROFLOXACIN INJ 400 MG in PREMIX 1 EACH IV SCH (06:39)
[2019-02-25] MEDS ORDERED: SODIUM CHLORIDE 0.9% 1,000 ML IV ONE (08:11)
[2019-02-25 08:24] LABS: Basophils # 0.1 10*3/uL (0.0-0.2); Basophils % 0.6 % (0.0-0.8); Hematocrit 38.5 VOL% (42.0-52.0); Immature Granulocytes % 0.5 %; Immature Granulocytes Absolute 0.04 #; Lymphocytes # 0.3 10*3/uL (1.4-4.0); Lymphocytes % 3.2 % (21.2-54.2); Mean Corpuscular HGB Conc 31.2 GM/DL (32-36); Mean Corpuscular Volume 102.4 FL (87-102); Mean Platelet Volume 10.7 FL (9.6-12.0); Monocytes % 6.4 % (1.7-12.7); Neutrophils % 89.3 % (38.7-73.9); Red Blood Count 3.76 MC/CUMM (3.8-5.5); Red Cell Distribution Width 12.5 % (9.3-17.3); White Blood Count 8.4 T/CUMM (4-12)
[2019-02-25 08:27] LABS: Platelet Count 107 T/CUMM (130-400)
[2019-02-25] MEDS: metroNIDAZOLE INJ 500 MG in PREMIX 1 EACH IV SCH ×2 (08:27→17:13)
[2019-02-25] MEDS: FAMOTIDINE 20 MG/2 ML VIAL IV SCH ×2 (08:27→21:08)
[2019-02-25] MEDS: PANTOPRAZOLE 40 MG TABLET PO SCH ×3 (08:28→21:09)
[2019-02-25 08:29] LABS: Alanine Aminotransferase 65 U/L (16-61); Albumin 3.9 G/DL (3.4-5.0); Alkaline Phosphatase 149 U/L (45-117); Aspartate Amino Transferase 182 U/L (0-37); Bilirubin,Total < 0.39 MG/DL (0.2-1.0); Blood Urea Nitrogen 8 MG/DL (7-18); Calcium 8.4 MG/DL (8.5-10.1); Glucose 100 MG/DL (74-106); Osmolality,Calculated 276.4 MOS/KG (273-304); Total Protein 8.2 G/DL (6.4-8.3)
[2019-02-25 08:35] LABS: Band Neutrophils 3 % (0-10); Hypochromasia 1+; Lymphocytes 1 % (20-55); Platelet Estimate Decreased; Segmented Neutrophils 89 % (50-85); Total Cells Counted 100
[2019-02-25] MEDS ORDERED: PANTOPRAZOLE 40 MG TABLET PO SCH (09:00)
[2019-02-25 09:31] LABS: % Iron Saturation 28.4 % (18-50)
[2019-02-25] MEDS: OXcarbazepine 300 MG TABLET PO SCH ×2 (09:34→21:09)
[2019-02-25] MEDS: PARoxetine 10 MG TABLET PO SCH (09:34)
[2019-02-25] MEDS: levETIRAcetam 250 MG TABLET PO SCH ×2 (09:34→21:12)
[2019-02-25] MEDS: chlordiazePOXIDE 25 MG CAPSULE PO SCH ×3 (09:35→21:20)
[2019-02-25 10:03] LABS: Folate 22.1 NG/ML (5.4-24.0)
[2019-02-25] MEDS: SODIUM BICARB INJ 150 MEQ in DEXTROSE 5% NACL 0.45% 1,000 ML IV SCH ×2 (10:30→17:13)
[2019-02-25] MEDS: DILTIAZEM CD 180 MG CAPSULE PO SCH (21:09)
[2019-02-25] MEDS: SERTRALINE 50 MG TABLET PO SCH (21:09)
[2019-02-26] MEDS: metroNIDAZOLE INJ 500 MG in PREMIX 1 EACH IV SCH ×4 (00:15→23:23)
[2019-02-26] MEDS: chlordiazePOXIDE 25 MG CAPSULE PO SCH ×3 (04:47→17:43)
[2019-02-26 05:25] LABS: Basophils % 0.4 % (0.0-0.8); Eosinophils # 0.1 10*3/uL (0.0-0.87); Hematocrit 34.4 VOL% (42.0-52.0); Hemoglobin 11.5 GM/DL (14.0-18.0); Immature Granulocytes % 0.4 %; Immature Granulocytes Absolute 0.02 #; Lymphocytes # 0.8 10*3/uL (1.4-4.0); Lymphocytes % 15.1 % (21.2-54.2); Mean Corpuscular HGB Conc 33.4 GM/DL (32-36); Mean Corpuscular Volume 95.6 FL (87-102); Neutrophils % 70.1 % (38.7-73.9); Red Cell Distribution Width 11.9 % (9.3-17.3); White Blood Count 5.5 T/CUMM (4-12)
[2019-02-26 05:27] LABS: Platelet Count 91 T/CUMM (130-400)
[2019-02-26] MEDS: CIPROFLOXACIN INJ 400 MG in PREMIX 1 EACH IV SCH (05:37)
[2019-02-26 05:41] LABS: Albumin 3.4 G/DL (3.4-5.0); Bilirubin,Total 0.7 MG/DL (0.2-1.0); Calcium 8.4 MG/DL (8.5-10.1); Total Protein 7.2 G/DL (6.4-8.3)
[2019-02-26] MEDS ORDERED: MAGNESIUM SULF RIDER 4 GM in PREMIX 1 EACH IV ONE (07:08)
[2019-02-26] MEDS ORDERED: POTASSIUM CHLORIDE 20 MEQ TABLET PO ONE (07:09)
[2019-02-26] MEDS: SODIUM BICARB INJ 150 MEQ in DEXTROSE 5% NACL 0.45% 1,000 ML IV SCH (07:24)
[2019-02-26] MEDS ORDERED: POTASSIUM CHLORIDE INJ 100 MEQ in SODIUM CHLORIDE 0.9% 1,000 ML IV SCH (07:30)
[2019-02-26] MEDS: PARoxetine 10 MG TABLET PO SCH (08:59)
[2019-02-26] MEDS: levETIRAcetam 250 MG TABLET PO SCH ×2 (08:59→21:08)
[2019-02-26] MEDS: PANTOPRAZOLE 40 MG TABLET PO SCH ×2 (08:59→21:09)
[2019-02-26] MEDS: FAMOTIDINE 20 MG/2 ML VIAL IV SCH ×2 (09:00→21:08)
[2019-02-26] MEDS: OXcarbazepine 300 MG TABLET PO SCH ×2 (09:00→21:09)
[2019-02-26] MEDS: SERTRALINE 50 MG TABLET PO SCH (21:09)
[2019-02-26] MEDS: DILTIAZEM CD 180 MG CAPSULE PO SCH (21:09)
[2019-02-27] MEDS ORDERED: LORazepam 2 MG/1 ML VIAL IM ONE (00:33)
[2019-02-27] MEDS: chlordiazePOXIDE 25 MG CAPSULE PO SCH (01:19)
[2019-02-27] MEDS: CIPROFLOXACIN INJ 400 MG in PREMIX 1 EACH IV SCH (06:31)
[2019-02-27 07:22] LABS: Basophils # 0.1 10*3/uL (0.0-0.2); Eosinophils # 0.1 10*3/uL (0.0-0.87); Eosinophils % 1.3 % (0.00-10.9); Hemoglobin 11.2 GM/DL (14.0-18.0); Immature Granulocytes % 1.3 %; Immature Granulocytes Absolute 0.08 #; Lymphocytes # 1.1 10*3/uL (1.4-4.0); Lymphocytes % 18.4 % (21.2-54.2); Mean Corpuscular Volume 98.9 FL (87-102); Mean Platelet Volume 10.9 FL (9.6-12.0); Monocytes % 12.7 % (1.7-12.7); NRBC # 0.02 10*3/uL; Neutrophils % 65.3 % (38.7-73.9); Platelet Count 90 T/CUMM (130-400); Red Blood Count 3.54 MC/CUMM (3.8-5.5); Red Cell Distribution Width 12.1 % (9.3-17.3)
[2019-02-27 07:29] LABS: Calcium 9.1 MG/DL (8.5-10.1)
[2019-02-27 07:42] VITALS: BP 119/78
[2019-02-27 07:57] LABS: Hypochromasia 1+; Microcytosis Slight; Platelet Estimate Decreased; Target Cells Few
[2019-02-27] MEDS ORDERED: ERGOCALCIFEROL 50,000 UNIT CAPSULE PO SCH (08:11)
[2019-02-27] MEDS: metroNIDAZOLE INJ 500 MG in PREMIX 1 EACH IV SCH (10:09)
== END 2019-02-27 08:15 | disposition hospice, home (50) | DRG 392 ==
LOC: EDBD → EDUNIT# → N.EDINP 20:29 → N.ED 20:29 → SUATTDRO 02-25 02:09 → N.5E 02-25 02:50
PROVIDERS: ADMIT Emergency Medicine; ATTEND Internal Medicine

== ENCOUNTER 2021-08-09 01:53 | Inpatient (IN) ==
[2021-08-09] MEDS ORDERED: ONDANSETRON 4 MG/2 ML VIAL IV PRN (04:00)
[2021-08-09] MEDS ORDERED: ACETAMINOPHEN 325 MG TABLET PO PRN (04:00)
[2021-08-09] MEDS ORDERED: NICOTINE 21 MG/24 HR PATCH TRANSDERM PRN (04:00)
[2021-08-09] MEDS ORDERED: CALCIUM CARBONATE CHEW 500 MG TABLET PO PRN (04:00)
[2021-08-09] MEDS ORDERED: ALBUTEROL 2.5 MG/3 ML NEB RESP TX PRN (04:00)
[2021-08-09] MEDS ORDERED: MORPHINE 2 MG/1 ML SYRINGE IV PRN (04:00)
[2021-08-09] MEDS ORDERED: SODIUM CHLORIDE 0.9% 1,000 ML IV ONE (04:03)
[2021-08-09 04:41] LABS: Basophils # 0.1 10*3/uL (0.0-0.2); Basophils % 0.3 % (0.0-0.8); Hematocrit 29.1 VOL% (42.0-52.0); Immature Granulocytes % 1.1 %; Immature Granulocytes Absolute 0.19 #; Lymphocytes # 0.5 10*3/uL (1.4-4.0); Lymphocytes % 2.8 % (21.2-54.2); Mean Corpuscular HGB Conc 28.2 GM/DL (32-36); Mean Corpuscular Volume 99.3 FL (87-102); Mean Platelet Volume 10.4 FL (9.6-12.0); Monocytes % 6.1 % (1.7-12.7); NRBC # 0.02 10*3/uL; Neutrophils % 89.7 % (38.7-73.9); Platelet Count 95 T/CUMM (130-400); Red Blood Count 2.93 MC/CUMM (3.8-5.5); Red Cell Distribution Width 14.9 % (9.3-17.3); White Blood Count 17.7 T/CUMM (4-12)
[2021-08-09 05:05] LABS: Hemoglobin 8.2 GM/DL (14.0-18.0)
[2021-08-09 05:18] LABS: Lactic Acid 11.7 MMOL/L (0.4-2.0)
[2021-08-09 05:19] LABS: Lymphocytes 1 % (20-55); Platelet Estimate Decreased; Segmented Neutrophils 97 % (50-85); Total Cells Counted 100
[2021-08-09 05:20] LABS: Hypochromasia 1+; Microcytosis 1+
[2021-08-09 05:22] LABS: ABG Base Excess -9.5 MMOL/L (-2.5-2.5); ABG Oxygen Saturation 96.9 % (95-100); ABG PCO2 23.1 MM HG (35-48); ABG PO2 101.9 MM HG (80-95); ABG TCO2 14.7 MMOL/L (23-27)
[2021-08-09 05:45] LABS: Alanine Aminotransferase 43 U/L (16-61); Albumin 3.1 G/DL (3.4-5.0); Alkaline Phosphatase 173 U/L (45-117); Aspartate Amino Transferase 112 U/L (0-37); Blood Urea Nitrogen 6 MG/DL (7-18); Calcium 9.1 MG/DL (8.5-10.1); Carbon Dioxide 14 MMOL/L (21-32); Estimated Glom Filtration Rate 68 ML/MIN; Glucose 123 MG/DL (74-106); Osmolality,Calculated 271.8 MOS/KG (273-304); Potassium 4.3 MMOL/L (3.5-5.1); Sodium 137 MMOL/L (136-145)
[2021-08-09] MEDS ORDERED: LACTATED RINGERS 2,000 ML IV ONE (05:58)
[2021-08-09] MEDS ORDERED: SODIUM BICARB INJ 100 MEQ in DEXTROSE 5% NACL 0.45% 1,000 ML IV SCH (06:00)
[2021-08-09] MEDS ORDERED: chlordiazePOXIDE 25 MG CAPSULE PO PRN (06:04)
[2021-08-09] MEDS ORDERED: hydrALAZINE 20 MG/1 ML VIAL IM PRN (07:33)
[2021-08-09] MEDS ORDERED: hydrALAZINE 20 MG/1 ML VIAL IV PRN (07:39)
[2021-08-09 08:16] LABS: % Iron Saturation 35.8 % (18-50); Ferritin 52.1 ng/mL (26-388)
[2021-08-09 09:02] LABS: Folate 5.42 NG/ML (5.38-24.0)
[2021-08-09] MEDS: THIAMINE 100 MG TABLET PO SCH (09:14)
[2021-08-09] MEDS: FOLIC ACID 1 MG TABLET PO SCH (09:14)
[2021-08-09] MEDS: PANTOPRAZOLE 40 MG VIAL IV SCH (09:15)
[2021-08-09] MEDS: MULTIVITAMIN (BEROCCA) TABLET PO SCH (09:15)
[2021-08-09 09:31] LABS: Bacteria,Urine Occasional /HPF (Few); Bilirubin,Urine Negative (Negative); Blood, Urine Moderate mg/dL (Negative); Glucose,Urine (UA) Negative (Negative); Ketones,Urine 80 mg/dL (Negative); Mucus,Urine Few /LPF (Occasional); Nitrite,Urine Negative (Negative); Protein,Urine Negative; RBC,Urine 36 /HPF (0-4); Squamous Epithelial Cell,Urine Occasional /HPF (0-10); Urine Appearance CLOUDY (Clear); Urine Color Yellow (Yellow); Urine Specific Gravity 1.017 (1.001-1.035)
[2021-08-09] MEDS: LORazepam 2 MG/1 ML VIAL IV PRN ×2 (09:59→15:07)
[2021-08-09 10:01] LABS: Calcium 8.8 MG/DL (8.5-10.1); Osmolality,Calculated 267.1 MOS/KG (273-304); Potassium 4.3 MMOL/L (3.5-5.1)
[2021-08-09] MEDS: SODIUM BICARB INJ 150 MEQ in DEXTROSE 5% 850 ML IV SCH ×2 (10:09→17:16)
[2021-08-09 13:56] LABS: Calcium 8.2 MG/DL (8.5-10.1); Osmolality,Calculated 276.5 MOS/KG (273-304); Potassium 3.4 MMOL/L (3.5-5.1)
[2021-08-09] MEDS ORDERED: MAGNESIUM SULF RIDER 4 GM/100 ML PREMIX IV ONE (15:18)
[2021-08-09] MEDS ORDERED: FUROSEMIDE 40 MG/4 ML VIAL IV ONE (15:18)
[2021-08-09] MEDS: DEXTROSE 5% LACTATED RINGERS 1,000 ML IV SCH (17:17)
[2021-08-09 20:35] LABS: Calcium 8.6 MG/DL (8.5-10.1); Osmolality,Calculated 269.1 MOS/KG (273-304); Potassium 3.1 MMOL/L (3.5-5.1)
[2021-08-09] MEDS: POTASSIUM CHLORIDE 20 MEQ TABLET PO SCH (21:49)
[2021-08-10] MEDS: POTASSIUM CHLORIDE 20 MEQ TABLET PO SCH ×2 (00:45→03:30)
[2021-08-10] MEDS: DEXTROSE 5% LACTATED RINGERS 1,000 ML IV SCH (02:17)
[2021-08-10] MEDS: LORazepam 2 MG/1 ML VIAL IV PRN ×2 (03:35→22:22)
[2021-08-10 03:53] LABS: Basophils # 0.1 10*3/uL (0.0-0.2); Basophils % 0.7 % (0.0-0.8); Eosinophils % 0.4 % (0.00-10.9); Hematocrit 24.4 VOL% (42.0-52.0); Hemoglobin 7.4 GM/DL (14.0-18.0); Immature Granulocytes % 1.6 %; Immature Granulocytes Absolute 0.11 #; Lymphocytes # 1.1 10*3/uL (1.4-4.0); Lymphocytes % 15.3 % (21.2-54.2); Mean Corpuscular HGB Conc 30.3 GM/DL (32-36); Mean Platelet Volume 10.3 FL (9.6-12.0); Monocytes % 9.2 % (1.7-12.7); Neutrophils % 72.8 % (38.7-73.9); Platelet Count 180 T/CUMM (130-400); Red Blood Count 2.68 MC/CUMM (3.8-5.5); Red Cell Distribution Width 15.1 % (9.3-17.3); White Blood Count 6.9 T/CUMM (4-12)
[2021-08-10 04:18] LABS: Calcium 8.2 MG/DL (8.5-10.1); Osmolality,Calculated 274.7 MOS/KG (273-304); Potassium 3.4 MMOL/L (3.5-5.1)
[2021-08-10] MEDS ORDERED: MORPHINE 2 MG/1 ML SYRINGE IV ONE (07:55)
[2021-08-10] MEDS ORDERED: LORazepam 2 MG/1 ML VIAL IV ONE (08:02)
[2021-08-10] MEDS ORDERED: chlordiazePOXIDE 10 MG CAPSULE PO SCH (09:00)
[2021-08-10] MEDS: THIAMINE 100 MG TABLET PO SCH (09:33)
[2021-08-10] MEDS: FOLIC ACID 1 MG TABLET PO SCH (09:33)
[2021-08-10] MEDS: PANTOPRAZOLE 40 MG VIAL IV SCH (09:33)
[2021-08-10] MEDS: MULTIVITAMIN (BEROCCA) TABLET PO SCH (09:33)
[2021-08-10] MEDS ORDERED: DIAZEPAM 5 MG TABLET PO PRN (10:00)
[2021-08-10] MEDS: DILTIAZEM CD 180 MG CAPSULE PO SCH ×2 (12:30→20:50)
[2021-08-10] MEDS: DIAZEPAM 5 MG TABLET PO SCH ×2 (16:30→20:50)
[2021-08-10] MEDS: SERTRALINE 50 MG TABLET PO SCH (20:50)
[2021-08-11 07:25] LABS: Calcium 8.8 MG/DL (8.5-10.1); Potassium 3.6 MMOL/L (3.5-5.1)
[2021-08-11] MEDS: THIAMINE 100 MG TABLET PO SCH (09:20)
[2021-08-11] MEDS: DIAZEPAM 5 MG TABLET PO SCH (09:20)
[2021-08-11] MEDS: FOLIC ACID 1 MG TABLET PO SCH (09:20)
[2021-08-11] MEDS: MULTIVITAMIN (BEROCCA) TABLET PO SCH (09:20)
[2021-08-11] MEDS: PANTOPRAZOLE 40 MG TABLET PO SCH (09:20)
[2021-08-11 14:01] LABS: Hematocrit 21.7 VOL% (42.0-52.0); Hemoglobin 6.5 GM/DL (14.0-18.0)
[2021-08-11] MEDS: THIAMINE 200 MG/2 ML VIAL IV SCH (15:26)
[2021-08-11 17:40] LABS: PT Patient Result 11.2 SECS (10.5-12.0); Partial Thromboplastin Time 27.1 SECS (23.8-32.1)
[2021-08-11] MEDS: DILTIAZEM CD 180 MG CAPSULE PO SCH (20:08)
[2021-08-11] MEDS: SERTRALINE 50 MG TABLET PO SCH (20:09)
[2021-08-11 21:17] LABS: Hematocrit 22.3 VOL% (42.0-52.0); Hemoglobin 6.6 GM/DL (14.0-18.0)
[2021-08-12 06:08] LABS: PT Patient Result 10.7 SECS (10.5-12.0)
[2021-08-12 06:10] LABS: Basophils % 0.4 % (0.0-0.8); Eosinophils # 0.1 10*3/uL (0.0-0.87); Eosinophils % 0.7 % (0.00-10.9); Hematocrit 23.5 VOL% (42.0-52.0); Immature Granulocytes % 0.4 %; Immature Granulocytes Absolute 0.03 #; Lymphocytes # 1.2 10*3/uL (1.4-4.0); Lymphocytes % 16.1 % (21.2-54.2); Mean Corpuscular HGB Conc 29.8 GM/DL (32-36); Mean Corpuscular Volume 93.6 FL (87-102); Mean Platelet Volume 10.7 FL (9.6-12.0); Monocytes % 10.7 % (1.7-12.7); Neutrophils % 71.7 % (38.7-73.9); Platelet Count 198 T/CUMM (130-400); Red Blood Count 2.51 MC/CUMM (3.8-5.5); White Blood Count 7.5 T/CUMM (4-12)
[2021-08-12 06:22] LABS: Calcium 8.7 MG/DL (8.5-10.1); Osmolality,Calculated 266.1 MOS/KG (273-304); Potassium 3.6 MMOL/L (3.5-5.1)
[2021-08-12 06:34] LABS: Ferritin 58.8 ng/mL (26-388); Thyroid Stimulating Hormone 0.722 uIU/ml (0.358-3.74)
[2021-08-12] MEDS ORDERED: SODIUM CHLORIDE 0.9% 1,000 ML IV PRN (07:52)
[2021-08-12] MEDS: PANTOPRAZOLE 40 MG TABLET PO SCH (09:28)
[2021-08-12] MEDS: THIAMINE 200 MG/2 ML VIAL IV SCH (09:31)
[2021-08-12] MEDS: FOLIC ACID 1 MG TABLET PO SCH (09:31)
[2021-08-12] MEDS: MULTIVITAMIN (BEROCCA) TABLET PO SCH (09:31)
[2021-08-12] MEDS ORDERED: MAGNESIUM SULF RIDER 2 GM/50 ML PREMIX IV ONE (10:50)
[2021-08-12 11:44] LABS: Hematocrit 22.1 VOL% (42.0-52.0); Hemoglobin 6.7 GM/DL (14.0-18.0)
[2021-08-12] MEDS: levETIRAcetam 250 MG TABLET PO SCH (20:36)
[2021-08-12] MEDS: OXcarbazepine 300 MG TABLET PO SCH (20:37)
[2021-08-12] MEDS: PANTOPRAZOLE 40 MG VIAL IV SCH (20:37)
[2021-08-12] MEDS: SERTRALINE 50 MG TABLET PO SCH (20:37)
[2021-08-12] MEDS: DILTIAZEM CD 180 MG CAPSULE PO SCH (20:37)
[2021-08-12 20:53] LABS: Hematocrit 27.1 VOL% (42.0-52.0); Hemoglobin 8.5 GM/DL (14.0-18.0)
[2021-08-12] MEDS ORDERED: FERROUS SULFATE 325 MG TABLET PO SCH (21:00)
[2021-08-13 05:41] LABS: Hematocrit 30.3 VOL% (42.0-52.0); Hemoglobin 9.6 GM/DL (14.0-18.0)
[2021-08-13 05:42] LABS: Basophils % 0.3 % (0.0-0.8); Eosinophils % 0.6 % (0.00-10.9); Hematocrit 30.7 VOL% (42.0-52.0); Hemoglobin 9.6 GM/DL (14.0-18.0); Immature Granulocytes % 0.5 %; Immature Granulocytes Absolute 0.03 #; Lymphocytes # 0.7 10*3/uL (1.4-4.0); Lymphocytes % 11.6 % (21.2-54.2); Mean Corpuscular HGB Conc 31.3 GM/DL (32-36); Mean Corpuscular Volume 89.2 FL (87-102); Mean Platelet Volume 10.7 FL (9.6-12.0); Monocytes % 12.3 % (1.7-12.7); Neutrophils % 74.7 % (38.7-73.9); Platelet Count 162 T/CUMM (130-400); Red Blood Count 3.44 MC/CUMM (3.8-5.5); Red Cell Distribution Width 15.5 % (9.3-17.3); White Blood Count 6.4 T/CUMM (4-12)
[2021-08-13 06:07] LABS: Albumin 2.6 G/DL (3.4-5.0); Bilirubin,Direct 0.2 MG/DL (0.0-0.20); Bilirubin,Total 1.2 MG/DL (0.20-1.00); Calcium 8.3 MG/DL (8.5-10.1); Osmolality,Calculated 264.2 MOS/KG (273-304); Potassium 3.4 MMOL/L (3.5-5.1); Total Protein 6.8 G/DL (6.4-8.2)
[2021-08-13] MEDS ORDERED: MAGNESIUM SULF RIDER 2 GM/50 ML PREMIX IV PRN (08:02)
[2021-08-13] MEDS ORDERED: MAGNESIUM SULF RIDER 4 GM/100 ML PREMIX IV PRN (08:02)
[2021-08-13] MEDS: levETIRAcetam 250 MG TABLET PO SCH ×2 (08:47→21:47)
[2021-08-13] MEDS: MULTIVITAMIN (BEROCCA) TABLET PO SCH (08:47)
[2021-08-13] MEDS: POTASSIUM CHLORIDE 20 MEQ TABLET PO PRN ×3 (08:48→19:08)
[2021-08-13] MEDS: FOLIC ACID 1 MG TABLET PO SCH (08:48)
[2021-08-13] MEDS: OXcarbazepine 300 MG TABLET PO SCH ×2 (08:48→21:48)
[2021-08-13] MEDS: THIAMINE 200 MG/2 ML VIAL IV SCH (08:53)
[2021-08-13] MEDS: PANTOPRAZOLE 40 MG VIAL IV SCH ×2 (08:54→21:48)
[2021-08-13 12:22] LABS: Hematocrit 30.5 VOL% (42.0-52.0); Hemoglobin 9.5 GM/DL (14.0-18.0)
[2021-08-13] MEDS ORDERED: POLYETHYLENE GLYCOL POWDER 255 GM BOTTLE PO ONE (18:00)
[2021-08-13] MEDS: BISACODYL 5 MG TABLET PO SCH (18:09)
[2021-08-13 19:58] LABS: Hematocrit 29.7 VOL% (42.0-52.0); Hemoglobin 9.4 GM/DL (14.0-18.0)
[2021-08-13] MEDS ORDERED: MAGNESIUM CITRATE 300 ML BOTTLE PO ONE (21:00)
[2021-08-13] MEDS: SERTRALINE 50 MG TABLET PO SCH (21:47)
[2021-08-13] MEDS: DILTIAZEM CD 180 MG CAPSULE PO SCH (21:47)
[2021-08-14] MEDS: BISACODYL 5 MG TABLET PO SCH ×2 (02:47→12:27)
[2021-08-14] MEDS ORDERED: MIDAZOLAM 2 MG/2 ML VIAL ONE (08:40)
[2021-08-14] MEDS: LACTATED RINGERS 1,000 ML IV SCH (09:06)
[2021-08-14] MEDS: FOLIC ACID 1 MG TABLET PO SCH (11:11)
[2021-08-14] MEDS: levETIRAcetam 250 MG TABLET PO SCH ×2 (11:11→20:24)
[2021-08-14] MEDS: MULTIVITAMIN (BEROCCA) TABLET PO SCH (11:11)
[2021-08-14] MEDS: THIAMINE 200 MG/2 ML VIAL IV SCH (11:13)
[2021-08-14] MEDS: PANTOPRAZOLE 40 MG VIAL IV SCH ×2 (11:15→20:24)
[2021-08-14] MEDS: OXcarbazepine 300 MG TABLET PO SCH ×2 (11:33→20:24)
[2021-08-14 12:07] LABS: Hematocrit 30.8 VOL% (42.0-52.0); Hemoglobin 9.9 GM/DL (14.0-18.0)
[2021-08-14 15:01] LABS: Levetiracetam (Keppra) 16.9 mcg/mL
[2021-08-14] MEDS: DILTIAZEM CD 180 MG CAPSULE PO SCH (20:23)
[2021-08-14] MEDS: SERTRALINE 50 MG TABLET PO SCH (20:24)
[2021-08-15 00:44] LABS: Hematocrit 30.2 VOL% (42.0-52.0); Hemoglobin 9.6 GM/DL (14.0-18.0)
[2021-08-15] MEDS: LACTATED RINGERS 1,000 ML IV SCH (06:27)
[2021-08-15 06:31] LABS: Basophils % 0.5 % (0.0-0.8); Eosinophils # 0.1 10*3/uL (0.0-0.87); Eosinophils % 1.1 % (0.00-10.9); Hematocrit 29.9 VOL% (42.0-52.0); Hemoglobin 9.4 GM/DL (14.0-18.0); Immature Granulocytes % 0.8 %; Immature Granulocytes Absolute 0.05 #; Lymphocytes # 0.9 10*3/uL (1.4-4.0); Lymphocytes % 14.4 % (21.2-54.2); Mean Corpuscular HGB Conc 31.4 GM/DL (32-36); Mean Corpuscular Volume 90.9 FL (87-102); Mean Platelet Volume 10.7 FL (9.6-12.0); Monocytes % 20.6 % (1.7-12.7); Neutrophils % 62.6 % (38.7-73.9); Platelet Count 223 T/CUMM (130-400); Red Blood Count 3.29 MC/CUMM (3.8-5.5); Red Cell Distribution Width 15.5 % (9.3-17.3); White Blood Count 6.1 T/CUMM (4-12)
[2021-08-15 06:53] LABS: Calcium 8.6 MG/DL (8.5-10.1); Osmolality,Calculated 267.1 MOS/KG (273-304); Potassium 3.8 MMOL/L (3.5-5.1)
[2021-08-15 06:59] LABS: Eosinophils 1 % (0-10); Lymphocytes 11 % (20-55); Platelet Estimate Normal; Segmented Neutrophils 71 % (50-85); Total Cells Counted 100
[2021-08-15] MEDS ORDERED: propofoL 200 MG/20 ML VIAL IV ONE (09:05)
[2021-08-15] MEDS ORDERED: LIDOCAINE 2% 5 ML VIAL ONE (09:05)
[2021-08-15] MEDS: levETIRAcetam 250 MG TABLET PO SCH ×2 (11:49→20:01)
[2021-08-15] MEDS: OXcarbazepine 300 MG TABLET PO SCH ×2 (11:51→20:01)
[2021-08-15] MEDS: MULTIVITAMIN (BEROCCA) TABLET PO SCH (11:52)
[2021-08-15] MEDS: FOLIC ACID 1 MG TABLET PO SCH (11:52)
[2021-08-15] MEDS: PANTOPRAZOLE 40 MG VIAL IV SCH ×2 (11:54→20:25)
[2021-08-15] MEDS: THIAMINE 200 MG/2 ML VIAL IV SCH (11:57)
[2021-08-15 13:08] VITALS: BP 137/77
[2021-08-15] MEDS: DILTIAZEM CD 180 MG CAPSULE PO SCH (20:01)
[2021-08-15] MEDS: SERTRALINE 50 MG TABLET PO SCH (20:01)
== END 2021-08-15 20:54 | disposition home or self-care (01) | DRG 896 ==
LOC: N.ICU 02:00 → SUATTDRO 03:20 → N.2W 08-10 18:32
PROVIDERS: ADMIT Internal Medicine; ATTEND Emergency Medicine